=== PATIENT | female | born 1960 | race Asian ===

== ENCOUNTER → 2017-11-04 13:11 | Outpatient (CLI) | payer OTHER, SELFPAY ==
[2017-11-04 14:35] LABS: Protein (Total) Urine Random 493 mg/dL (0-12); Protein Creatinine Ratio Urine 5.13 GRAM/24H
[2017-11-04 14:53] LABS: BUN Creatinine Ratio 16.1 (6-22); Blood Urea Nitrogen 53 mg/dL (7-17); Calcium 9.2 mg/dL (8.4-10.2); Carbon Dioxide 19 mmol/L (22-32); Chloride 110 mmol/L (98-107); Estimated Glomerular Filt Rate 14.5 mL/min (>60); Glucose 56 mg/dL (70-100); HEMOLYSIS < 15 (0-50); Phosphorous 6.6 mg/dL (2.5-4.5); Potassium 4.2 mmol/L (3.4-5.1); Sodium 143 mmol/L (137-145)
[2017-11-04 19:32] LABS: Hematocrit 35.9 % (36-46); Hemoglobin 12.6 g/dL (12.0-16.0); Mean Corpuscular HGB Conc 35.1 % (30-36); Mean Corpuscular Hemoglobin 29.6 PG (26-34); Mean Corpuscular Volume 84.5 fL (80-100); Platelet Count 140 X10^3/uL (150-400); Red Blood Cell Count 4.26 X10^6/uL (4.0-5.2); Red Cell Distribution Width 14.6 % (11.6-14.8); White Blood Cell Count 5.4 X10^3/uL (4.5-11.0)
[2017-11-06 14:17] LABS: Parathyroid Hormone Int 111 pg/mL (14-64)
== END ==
PROVIDERS: PCP Family Medicine; Visit Provider Internal Medicine Nephrology
DX: N05.9 Unspecified nephritic syndrome with unspecified morphologic changes (principal); D70.9 Neutropenia, unspecified; D63.1 Anemia in chronic kidney disease; E83.30 Disorder of phosphorus metabolism, unspecified; N25.81 Secondary hyperparathyroidism of renal origin; R80.9 Proteinuria, unspecified
CPT/HCPCS: 36415; 80048; 82570; 83970; 84100; 84156; 85027

== ENCOUNTER → 2018-01-08 10:45 | Outpatient (CLI) | payer OTHER, SELFPAY ==
[2018-01-08 11:48] LABS: Alanine Aminotransferase 28 IU/L (9-52); Albumin 4.4 g/dL (3.5-5.0); Albumin Globulin Ratio 1.4 (1.0-2.8); Alkaline Phosphatase 79 U/L (38-126); Aspartate Aminotransferase 36 IU/L (14-36); BUN Creatinine Ratio 15.4 (6-22); Bilirubin Total 1.1 mg/dL (0.2-1.3); Blood Urea Nitrogen 54 mg/dL (7-17); Calcium 10.5 mg/dL (8.4-10.2); Carbon Dioxide 16 mmol/L (22-32); Chloride 109 mmol/L (98-107); Estimated Glomerular Filt Rate 13.5 mL/min (>60); Globulin 3.2 g/dL (1.7-4.1); Glucose 152 mg/dL (70-100); HEMOLYSIS < 15 (0-50); Potassium 4.3 mmol/L (3.4-5.1); Sodium 140 mmol/L (137-145); Total Protein 7.6 g/dL (6.3-8.2)
[2018-01-08 12:03] LABS: Hemoglobin A1C% w Est Avg Glu 6.5 % (4.0-6.0)
[2018-01-08 12:20] LABS: Creatinine Urine Random 56.5 mg/dL; Microalbumi Creatinin Ratio Ur 336.2 ug/mg CR (<30); Microalbumin Urine Random > 19.0 mg/dL (0-1.6)
[2018-01-08 13:19] LABS: Free T4, Direct Thyroxine 0.89 ng/dL (0.78-2.19)
[2018-01-08 13:33] LABS: Thyroid Stimulating Hormone 1.21 uIU/mL (0.47-4.68)
== END ==
PROVIDERS: Family Provider Internal Medicine Nephrology; PCP Family Medicine; Visit Provider Family Medicine
DX: E11.9 Type 2 diabetes mellitus without complications (principal); I10 Essential (primary) hypertension; K86.9 Disease of pancreas, unspecified; N18.9 Chronic kidney disease, unspecified; R89.9 Unspecified abnormal finding in specimens from other organs, systems and tissues; Z51.81 Encounter for therapeutic drug level monitoring; N28.9 Disorder of kidney and ureter, unspecified
CPT/HCPCS: 36415; 80053; 82043; 82570; 83036; 84439; 84443

== ENCOUNTER → 2018-01-12 11:53 | Outpatient (CLI) | payer OTHER, SELFPAY ==
[2018-01-12 12:27] LABS: Hemoglobin A1C% w Est Avg Glu 6.5 % (4.0-6.0)
[2018-01-12 13:10] LABS: Alanine Aminotransferase 33 IU/L (9-52); Albumin 4.5 g/dL (3.5-5.0); Albumin Globulin Ratio 1.6 (1.0-2.8); Alkaline Phosphatase 77 U/L (38-126); Aspartate Aminotransferase 34 IU/L (14-36); BUN Creatinine Ratio 17.8 (6-22); Bilirubin Total 0.8 mg/dL (0.2-1.3); Blood Urea Nitrogen 66 mg/dL (7-17); Calcium 10.1 mg/dL (8.4-10.2); Carbon Dioxide 19 mmol/L (22-32); Chloride 108 mmol/L (98-107); Estimated Glomerular Filt Rate 12.7 mL/min (>60); Globulin 2.8 g/dL (1.7-4.1); Glucose 135 mg/dL (70-100); HEMOLYSIS < 15 (0-50); Potassium 4.9 mmol/L (3.4-5.1); Sodium 143 mmol/L (137-145); Total Protein 7.3 g/dL (6.3-8.2)
== END ==
PROVIDERS: Family Provider Internal Medicine Nephrology; PCP Family Medicine; Visit Provider Family Medicine
DX: E11.9 Type 2 diabetes mellitus without complications (principal); I10 Essential (primary) hypertension
CPT/HCPCS: 36415; 80053; 83036

== ENCOUNTER → 2018-02-26 10:49 | Outpatient (CLI) | payer OTHER, SELFPAY ==
--- NOTE | 2018-02-26 10:59 | DI.MG.S_ITS ---
BILATERAL DIGITAL SCREENING MAMMOGRAM 3D/2D WITH CAD: 02/26/2018 CLINICAL: Routine screening. Comparison is made to exams dated: 01/02/2015 mammogram, 05/05/2013 mammogram, and 06/16/2011 mammogram - [facility]. There are scattered fibroglandular elements in both breasts. Current study was also evaluated with a Computer Aided Detection (CAD) system. No significant masses, calcifications, or other findings are seen in either breast. There has been no significant interval change. IMPRESSION: NEGATIVE There is no mammographic evidence of malignancy. A 1 year screening mammogram is recommended. This exam was interpreted at Station ID: [id number]. NOTE: For mammograms, a report in lay terms will be sent to the patient. Approximately 15% of breast malignancies will not be visualized mammographically. In the management of a palpable breast mass, a negative mammogram must not discourage biopsy of a clinically suspicious lesion. Electronically Signed By: Ld dinero/kelly:02/26/2018 16:35:04 letter sent: Normal Exam ACR BI-RADS Category 1: Negative [id number]
[2018-02-26 11:36] LABS: Bacteria Urine None Seen; WBC Urine None Seen (0-5/HPF)
[2018-02-26 12:19] LABS: Add Manual Diff / Slide Review NO; Basophils Percent Auto 0.9 % (0-2); Eosinophils Percent Auto 3.8 % (2-4); Hematocrit 29.2 % (36-46); Hemoglobin 10.3 g/dL (12.0-16.0); Lymphocytes Percent Auto 27.4 % (25-40); Mean Corpuscular HGB Conc 35.1 % (30-36); Mean Corpuscular Hemoglobin 29.3 PG (26-34); Mean Corpuscular Volume 83.5 fL (80-100); Monocytes Percent Auto 7.6 % (3-14); Neutrophils Absolute Auto 3600 /uL (3000-5900); Neutrophils Percent Auto 60.3 % (50-75); Platelet Count 169 X10^3/uL (150-400); Red Cell Distribution Width 14.3 % (11.6-14.8)
[2018-02-26 12:20] LABS: Reticulocyte Count, Percent 1.7 % (1.06-2.63)
[2018-02-26 12:35] LABS: Alanine Aminotransferase 26 IU/L (9-52); Albumin 4.1 g/dL (3.5-5.0); Albumin Globulin Ratio 1.4 (1.0-2.8); Alkaline Phosphatase 89 U/L (38-126); Aspartate Aminotransferase 28 IU/L (14-36); BUN Creatinine Ratio 11.5 (6-22); Bilirubin Total 0.4 mg/dL (0.2-1.3); Blood Urea Nitrogen 38 mg/dL (7-17); Carbon Dioxide 17 mmol/L (22-32); Chloride 104 mmol/L (98-107); Estimated Glomerular Filt Rate 14.4 mL/min (>60); Glucose 164 mg/dL (70-100); HEMOLYSIS < 15 (0-50); Iron 50 ug/dL (37-170); Phosphorous 5.1 mg/dL (2.5-4.5); Potassium 3.9 mmol/L (3.4-5.1); Sodium 140 mmol/L (137-145); Total Protein 7.1 g/dL (6.3-8.2); Uric Acid 5.6 mg/dL (2.5-6.2)
[2018-02-26 12:46] LABS: Percent Iron Saturation 18 % (15-50); Total Iron Binding Capacity 275 ug/dL (265-497); Transferrin 232 mg/dL (206-381)
[2018-02-26 13:05] LABS: Ferritin 72.2 ng/mL (11.1-264)
[2018-02-26 13:58] LABS: Appearance Urine UA CLEAR; Bilirubin Urine UA NEGATIVE (NEGATIVE); Color Urine UA YELLOW; Glucose Urine UA 1+ g/dL (Normal); Ketones Urine UA NEGATIVE (NEGATIVE); Leukocyte Esterase Urine UA NEGATIVE (NEGATIVE); Nitrite Urine UA NEGATIVE (Negative); Occult Blood Urine UA 1+ (Negative); Protein Urine UA 2+ (Negative); Urobilinogen Urine UA 0.2 E.U./dL (0.2); pH Urine UA 5.5 (4.5-8.0)
[2018-02-26 14:01] LABS: Culture Indicated Urine Cult Not Indicated; RBC Urine 5-10/HPF (0-5/HPF)
[2018-02-26 14:41] LABS: Creatinine Urine Random 71.3 mg/dL
[2018-02-26 14:53] LABS: Vitamin D 25 Hydroxy (D3) 35.5 ng/mL (30.0-100.0)
[2018-02-26 16:21] LABS: Microalbumi Creatinin Ratio Ur 5525.9 ug/mg CR (<30)
[2018-02-27 17:52] LABS: Parathyroid Hormone Int 320 pg/mL (14-64)
[2018-03-02 23:57] LABS: Albumin 44 %; Protein/ Creatinine Ratio 3859 mg/g creat (21-161); Total Urine Protein 291 mg/dL (5-24); Urine Creatinine, Random 75 mg/dL (20-275)
== END ==
PROVIDERS: PCP Family Medicine; Referring Provider Internal Medicine; Visit Provider Family Medicine
DX: Z12.31 Encounter for screening mammogram for malignant neoplasm of breast (principal); N18.5 Chronic kidney disease, stage 5
CPT/HCPCS: 36415; 77063; 77067; 80053; 81001; 82043; 82306; 82570; 82728; 83540; 83550; 83970; 84100; 84156; 84166; 84550; 85025; 85045

== ENCOUNTER → 2018-04-23 14:37 | Outpatient (CLI) | payer OTHER, SELFPAY ==
--- NOTE | 2018-04-23 | DI.US.S_ITS ---
PROCEDURE: US RENAL COMPLETE INDICATIONS: CHRONIC KIDNEY DISEASE TECHNIQUE: Real-time scanning was performed of the kidneys and bladder, with image documentation. COMPARISON: [facility], , RENAL COMPLETE, 10/05/2014, 15:48. FINDINGS: Kidneys: Kidneys are normal in size. Right kidney measures 9.3 cm long; left kidney measures 9.9 cm long. Right renal cortical thickness is 1.4 cm; left renal cortical thickness is 1.0 cm. Renal cortical echotexture is increased bilaterally. No hydronephrosis or nephrolithiasis. No suspicious solid mass lesions. Bladder: Urinary bladder decompressed and suboptimally visualized. Miscellaneous: No free pelvic fluid. IMPRESSION: Increase in renal cortical echogenicity bilaterally suggesting medical renal disease. Dictated by: Eber Obrien [facility] Interpreted: Luigi Bunch MD on 04/23/2018 at 15:12 Approved by: Luigi Bunch M.D. on 04/23/2018 at 16:38
== END ==
PROVIDERS: PCP Family Medicine; Visit Provider Internal Medicine
DX: N18.9 Chronic kidney disease, unspecified (principal)
CPT/HCPCS: 76770

== ENCOUNTER → 2018-06-28 11:48 | Outpatient (CLI) | payer OTHER, SELFPAY ==
[2018-06-28 13:52] LABS: Alanine Aminotransferase 24 IU/L (9-52); Albumin 4.4 g/dL (3.5-5.0); Albumin Globulin Ratio 1.3 (1.0-2.8); Alkaline Phosphatase 56 U/L (38-126); Aspartate Aminotransferase 29 IU/L (14-36); BUN Creatinine Ratio 11.1 (6-22); Bilirubin Total 0.8 mg/dL (0.2-1.3); Blood Urea Nitrogen 59 mg/dL (7-17); Calcium 9.6 mg/dL (8.4-10.2); Carbon Dioxide 15 mmol/L (22-32); Chloride 105 mmol/L (98-107); Cholesterol 169 mg/dL (140-199); Estimated Glomerular Filt Rate 8.3 mL/min (>60); Globulin 3.3 g/dL (1.7-4.1); Glucose 251 mg/dL (70-100); HDL Cholesterol 101 mg/dL (40-60); HEMOLYSIS < 15 (0-50); LDL Cholesterol Calculated 55 mg/dL (<100); Potassium 3.7 mmol/L (3.4-5.1); Sodium 135 mmol/L (137-145); Total Protein 7.7 g/dL (6.3-8.2); Triglycerides 64 mg/dL (35-150)
== END ==
PROVIDERS: Family Provider Family Medicine; PCP Family Medicine; Visit Provider Internal Medicine
DX: I12.0 Hypertensive chronic kidney disease with stage 5 chronic kidney disease or end stage renal disease (principal); E11.9 Type 2 diabetes mellitus without complications
CPT/HCPCS: 36415; 80053; 80061; 83036

== ENCOUNTER → 2019-01-10 10:16 | Outpatient (CLI) | payer OTHER, SELFPAY ==
[2019-01-10 12:04] LABS: Add Manual Diff / Slide Review NO; Basophils Absolute Auto 0 /uL (0-100); Eosinophils Absolute Auto 300 /uL (0-450); Eosinophils Percent Auto 5.5 % (2-4); Hematocrit 26.4 % (36-46); Hemoglobin 9.4 g/dL (12.0-16.0); Lymphocytes Absolute Auto 1400 /uL (1100-4500); Lymphocytes Percent Auto 30.5 % (25-40); Mean Corpuscular HGB Conc 35.5 % (30-36); Mean Corpuscular Hemoglobin 31.6 PG (26-34); Mean Corpuscular Volume 88.9 fL (80-100); Monocytes Absolute Auto 300 /uL (0-900); Monocytes Percent Auto 7.3 % (3-14); Neutrophils Absolute Auto 2600 /uL (1500-7000); Neutrophils Percent Auto 55.7 % (50-75); Platelet Count 94 X10^3/uL (150-400); Red Blood Cell Count 2.96 X10^6/uL (4.0-5.2); Red Cell Distribution Width 15.2 % (11.6-14.8)
[2019-01-10 12:09] LABS: Hemoglobin A1C% w Est Avg Glu 6.2 % (4.0-6.0)
[2019-01-10 12:19] LABS: Alanine Aminotransferase 23 IU/L (9-52); Albumin 3.7 g/dL (3.5-5.0); Albumin Globulin Ratio 1.5 (1.0-2.8); Alkaline Phosphatase 59 U/L (38-126); Aspartate Aminotransferase 24 IU/L (14-36); BUN Creatinine Ratio 10.6 (6-22); Bilirubin Total 0.6 mg/dL (0.2-1.3); Blood Urea Nitrogen 89 mg/dL (7-17); Calcium 9.9 mg/dL (8.4-10.2); Carbon Dioxide 15 mmol/L (22-32); Chloride 107 mmol/L (98-107); Estimated Glomerular Filt Rate 4.9 mL/min (>60); Globulin 2.5 g/dL (1.7-4.1); Glucose 110 mg/dL (70-100); HEMOLYSIS < 15 (0-50); Magnesium 2.3 mg/dL (1.6-2.3); Phosphorous 8.4 mg/dL (2.5-4.5); Potassium 5.2 mmol/L (3.4-5.1); Sodium 138 mmol/L (137-145); Total Protein 6.2 g/dL (6.3-8.2)
[2019-01-10 12:23] LABS: B Type Natriuretic Peptide 602 (<100)
== END ==
PROVIDERS: PCP Family Medicine; Visit Provider Family Medicine
DX: D64.9 Anemia, unspecified (principal); E11.9 Type 2 diabetes mellitus without complications; I10 Essential (primary) hypertension; K74.60 Unspecified cirrhosis of liver; K92.2 Gastrointestinal hemorrhage, unspecified; N18.5 Chronic kidney disease, stage 5
CPT/HCPCS: 36415; 80053; 83036; 83735; 83880; 84100; 85025

== ENCOUNTER → 2019-01-26 11:50 | Outpatient (CLI) | payer OTHER, SELFPAY ==
[2019-01-26 12:18] LABS: Add Manual Diff / Slide Review NO; Basophils Absolute Auto 0 /uL (0-100); Basophils Percent Auto 0.7 % (0-2); Eosinophils Absolute Auto 100 /uL (0-450); Eosinophils Percent Auto 2.6 % (2-4); Hematocrit 25.6 % (36-46); Hemoglobin 9.1 g/dL (12.0-16.0); Lymphocytes Absolute Auto 900 /uL (1100-4500); Lymphocytes Percent Auto 18.2 % (25-40); Mean Corpuscular HGB Conc 35.4 % (30-36); Mean Corpuscular Hemoglobin 31.6 PG (26-34); Monocytes Absolute Auto 400 /uL (0-900); Monocytes Percent Auto 7.9 % (3-14); Neutrophils Absolute Auto 3400 /uL (1500-7000); Neutrophils Percent Auto 70.6 % (50-75); Platelet Count 123 X10^3/uL (150-400); Red Blood Cell Count 2.87 X10^6/uL (4.0-5.2); Red Cell Distribution Width 14.3 % (11.6-14.8); White Blood Cell Count 4.8 X10^3/uL (4.5-11.0)
[2019-01-26 12:26] LABS: BUN Creatinine Ratio 10.6 (6-22); Blood Urea Nitrogen 84 mg/dL (7-17); Carbon Dioxide 17 mmol/L (22-32); Chloride 108 mmol/L (98-107); Estimated Glomerular Filt Rate 5.2 mL/min (>60); Glucose 133 mg/dL (70-100); HEMOLYSIS < 15 (0-50); Phosphorous 7.9 mg/dL (2.5-4.5); Potassium 4.5 mmol/L (3.4-5.1); Sodium 142 mmol/L (137-145)
[2019-01-26 12:31] VITALS: BP 157/80; PULSE 82; RESP 16; TEMP 36.8; O2SAT 97
[2019-01-26] MEDS: DARBEPOETIN 40 MCG/0.4 ML SYRINGE SUBCUT (12:45)
--- NOTE | 2019-01-26 13:33 | PC.NURSE ---
Aranesp given without difficulty after noting lab HGB 9.1. Teaching sheet given and reviewed with patient. Received call from lab notifying us that critical value of creat 7.9. Noted previous value of 8.4. Office of Dr Mcfadden in nephrology called and Dr Mcfadden is out of office. Spoke with nurse Shari and gave her the critical value. She will notify the other server developer in the office that's covering for Dr Mcfadden.
--- NOTE | 2019-01-26 16:10 | PC.NURSE ---
faxed critical lab result to Dr. Beatty's office. Nephrology already notified by RN, Tara Crowe.
== END ==
PROVIDERS: PCP Family Medicine; Visit Provider Internal Medicine
DX: N18.5 Chronic kidney disease, stage 5 (principal); D64.9 Anemia, unspecified
CPT/HCPCS: 80048; 84100; 85025; 96372; J0881

== ENCOUNTER → 2019-02-09 10:18 | Outpatient (CLI) | payer OTHER, SELFPAY ==
[2019-02-09 11:50] LABS: Add Manual Diff / Slide Review NO; Basophils Absolute Auto 0 /uL (0-100); Basophils Percent Auto 0.8 % (0-2); Eosinophils Absolute Auto 200 /uL (0-450); Hematocrit 26.1 % (36-46); Hemoglobin 9.3 g/dL (12.0-16.0); Lymphocytes Absolute Auto 900 /uL (1100-4500); Lymphocytes Percent Auto 17.7 % (25-40); Mean Corpuscular HGB Conc 35.4 % (30-36); Mean Corpuscular Hemoglobin 31.1 PG (26-34); Mean Corpuscular Volume 87.6 fL (80-100); Monocytes Absolute Auto 400 /uL (0-900); Monocytes Percent Auto 7.2 % (3-14); Neutrophils Absolute Auto 3600 /uL (1500-7000); Neutrophils Percent Auto 71.3 % (50-75); Platelet Count 108 X10^3/uL (150-400); Red Blood Cell Count 2.98 X10^6/uL (4.0-5.2); Red Cell Distribution Width 14.5 % (11.6-14.8)
[2019-02-09 12:14] LABS: BUN Creatinine Ratio 8.7 (6-22); Blood Urea Nitrogen 65 mg/dL (7-17); Calcium 9.7 mg/dL (8.4-10.2); Carbon Dioxide 19 mmol/L (22-32); Chloride 108 mmol/L (98-107); Estimated Glomerular Filt Rate 5.6 mL/min (>60); Glucose 125 mg/dL (70-100); HEMOLYSIS < 15 (0-50); Phosphorous 6.9 mg/dL (2.5-4.5); Potassium 4.3 mmol/L (3.4-5.1); Sodium 139 mmol/L (137-145)
== END ==
PROVIDERS: PCP Family Medicine; Visit Provider Internal Medicine
DX: N28.9 Disorder of kidney and ureter, unspecified (principal)
CPT/HCPCS: 36415; 80048; 84100; 85025

== ENCOUNTER → 2019-02-09 | Outpatient (CLI) | payer OTHER, SELFPAY ==
[2019-02-09 11:25] VITALS: BP 146/72; PULSE 67; RESP 18; TEMP 36.7; O2SAT 100
[2019-02-09] MEDS: DARBEPOETIN 40 MCG/0.4 ML SYRINGE SUBCUT (12:07)
== END ==
LOC: ONC 10:51
PROVIDERS: PCP Family Medicine; Visit Provider Internal Medicine
DX: N18.5 Chronic kidney disease, stage 5 (principal); D63.1 Anemia in chronic kidney disease
CPT/HCPCS: 36415; 80048; 84100; 85025; 96372; J0881

== ENCOUNTER → 2019-02-23 10:38 | Outpatient (CLI) | payer OTHER, SELFPAY ==
[2019-02-23 12:11] LABS: Add Manual Diff / Slide Review NO; Basophils Absolute Auto 0 /uL (0-100); Basophils Percent Auto 0.9 % (0-2); Eosinophils Absolute Auto 200 /uL (0-450); Eosinophils Percent Auto 4.2 % (2-4); Hematocrit 27.6 % (36-46); Hemoglobin 9.9 g/dL (12.0-16.0); Lymphocytes Absolute Auto 1200 /uL (1100-4500); Lymphocytes Percent Auto 29.5 % (25-40); Mean Corpuscular Hemoglobin 31.7 PG (26-34); Mean Corpuscular Volume 88.1 fL (80-100); Monocytes Absolute Auto 300 /uL (0-900); Monocytes Percent Auto 7.2 % (3-14); Neutrophils Absolute Auto 2400 /uL (1500-7000); Neutrophils Percent Auto 58.2 % (50-75); Platelet Count 108 X10^3/uL (150-400); Red Blood Cell Count 3.13 X10^6/uL (4.0-5.2); Red Cell Distribution Width 15.8 % (11.6-14.8); White Blood Cell Count 4.2 X10^3/uL (4.5-11.0)
[2019-02-23 12:21] LABS: HEMOLYSIS < 15 (0-50); Iron 110 ug/dL (37-170)
[2019-02-23 12:24] LABS: Alanine Aminotransferase 21 IU/L (9-52); Albumin Globulin Ratio 1.6 (1.0-2.8); Alkaline Phosphatase 65 U/L (38-126); Aspartate Aminotransferase 19 IU/L (14-36); BUN Creatinine Ratio 10.6 (6-22); Bilirubin Total 0.7 mg/dL (0.2-1.3); Blood Urea Nitrogen 82 mg/dL (7-17); Calcium 9.6 mg/dL (8.4-10.2); Carbon Dioxide 17 mmol/L (22-32); Chloride 107 mmol/L (98-107); Estimated Glomerular Filt Rate 5.4 mL/min (>60); Globulin 2.5 g/dL (1.7-4.1); Glucose 99 mg/dL (70-100); HEMOLYSIS < 15 (0-50); Phosphorous 8.6 mg/dL (2.5-4.5); Sodium 140 mmol/L (137-145); Total Protein 6.5 g/dL (6.3-8.2)
[2019-02-23 12:32] LABS: Percent Iron Saturation 45 % (15-50); Total Iron Binding Capacity 244 ug/dL (265-497); Transferrin 196 mg/dL (206-381)
[2019-02-23 12:36] LABS: Vitamin D 25 Hydroxy (D3) 37.8 ng/mL (30.0-100.0)
[2019-02-25 16:32] LABS: Parathyroid Hormone Int 211 pg/mL (14-64)
== END ==
PROVIDERS: PCP Family Medicine; Visit Provider Internal Medicine
DX: N18.5 Chronic kidney disease, stage 5 (principal)
CPT/HCPCS: 36415; 80053; 82306; 82728; 83540; 83550; 83970; 84100; 85025

== ENCOUNTER → 2019-02-23 11:30 | Outpatient (CLI) | payer OTHER, SELFPAY ==
[2019-02-23 11:48] VITALS: BP 169/74; PULSE 57; RESP 20; TEMP 36.5; O2SAT 100
[2019-02-23] MEDS: DARBEPOETIN 40 MCG/0.4 ML SYRINGE SUBCUT (12:41)
--- NOTE | 2019-02-23 13:13 | PC.NURSE ---
Dr. Mcfadden notified of critical creatinine of 7.7, this scenario writer also informed Dr. Mcfadden of pt's K+ and H/H/. Lab results faxed to [phone] Mcfadden's request during this call.
== END ==
PROVIDERS: PCP Family Medicine; Visit Provider Internal Medicine
DX: N18.5 Chronic kidney disease, stage 5 (principal); D63.1 Anemia in chronic kidney disease
CPT/HCPCS: 36415; 80053; 82306; 82728; 83540; 83550; 83970; 84100; 85025; 96401; J0881

== ENCOUNTER → 2019-03-09 09:45 | Oncology outpatient (ONC) | payer OTHER, SELFPAY ==
[2018-10-25] MEDS: IRON SUCROSE 200 MG in SODIUM CHLORIDE 0.9% 100 ML 110 ML IV (14:45)
[2018-10-25] MEDS: diphenhydrAMINE 25 MG TABLET PO (14:46)
[2018-10-25 14:55] VITALS: BP 205/81; PULSE 60; RESP 16; TEMP 36.8; O2SAT 97
[2018-10-25 15:23] VITALS: BP 205/91; PULSE 63
--- NOTE | 2018-10-25 15:23 | PC.NURSE ---
BP 205/91 with cuff change to regular size.
--- NOTE | 2018-10-26 09:19 | PC.NURSE ---
Patient had elevated blood pressure at beginning and end of iron treatment (systolic 205). She stated that she has not been taking her prescribed amlodipine because she cannot keep it down. the dryness and size of tablet she states make her gag. This nurse informed nurse of her provider Kasia Beatty, conveying also patient's info that she has been able to swallow the 5 mg coated amlodipine in the past. This nurse stated she will talk with provider and give the patient a call.
[2018-10-27] MEDS: IRON SUCROSE 200 MG in SODIUM CHLORIDE 0.9% 100 ML 110 ML IV (14:10)
[2018-10-27] MEDS: diphenhydrAMINE 25 MG TABLET PO (14:10)
[2018-10-27 14:12] VITALS: BP 151/75; PULSE 76; RESP 16; TEMP 36.9; O2SAT 100
[2018-11-01] MEDS: IRON SUCROSE 200 MG in SODIUM CHLORIDE 0.9% 100 ML 110 ML IV (14:32)
[2018-11-01 14:41] VITALS: BP 135/72; PULSE 67; RESP 16; TEMP 36.7; O2SAT 98
[2018-11-03] MEDS: IRON SUCROSE 200 MG in SODIUM CHLORIDE 0.9% 100 ML 110 ML IV (14:49)
[2018-11-03 14:56] VITALS: BP 146/69; PULSE 65; RESP 18; TEMP 36.4; O2SAT 100
[2018-11-08 14:26] VITALS: BP 165/84; PULSE 77; RESP 18; TEMP 36.7; O2SAT 100
[2018-11-08] MEDS: IRON SUCROSE 200 MG in SODIUM CHLORIDE 0.9% 100 ML 110 ML IV (14:41)
[2018-11-08] MEDS: diphenhydrAMINE 25 MG TABLET PO (14:42)
[2019-03-09 11:18] LABS: Add Manual Diff / Slide Review NO; Basophils Absolute Auto 0 /uL (0-100); Eosinophils Absolute Auto 200 /uL (0-450); Eosinophils Percent Auto 3.5 % (2-4); Hematocrit 26.9 % (36-46); Hemoglobin 9.5 g/dL (12.0-16.0); Lymphocytes Absolute Auto 900 /uL (1100-4500); Lymphocytes Percent Auto 20.6 % (25-40); Mean Corpuscular HGB Conc 35.3 % (30-36); Mean Corpuscular Hemoglobin 31.5 PG (26-34); Mean Corpuscular Volume 89.3 fL (80-100); Monocytes Absolute Auto 300 /uL (0-900); Monocytes Percent Auto 7.2 % (3-14); Neutrophils Absolute Auto 3000 /uL (1500-7000); Neutrophils Percent Auto 67.7 % (50-75); Platelet Count 97 X10^3/uL (150-400); Red Blood Cell Count 3.02 X10^6/uL (4.0-5.2); Red Cell Distribution Width 15.2 % (11.6-14.8); White Blood Cell Count 4.5 X10^3/uL (4.5-11.0)
[2019-03-09 11:41] LABS: Alanine Aminotransferase 14 IU/L (<35); Albumin 3.9 g/dL (3.5-5.0); Albumin Globulin Ratio 1.6 (1.0-2.8); Alkaline Phosphatase 66 U/L (38-126); Aspartate Aminotransferase 21 IU/L (14-36); BUN Creatinine Ratio 11.7 (6-22); Blood Urea Nitrogen 89 mg/dL (7-17); Calcium 9.7 mg/dL (8.4-10.2); Carbon Dioxide 19 mmol/L (22-32); Chloride 108 mmol/L (98-107); Estimated Glomerular Filt Rate 5.5 mL/min (>60); Globulin 2.5 g/dL (1.7-4.1); Glucose 116 mg/dL (70-100); HEMOLYSIS < 15 (0-50); Potassium 4.6 mmol/L (3.4-5.1); Sodium 142 mmol/L (137-145); Total Protein 6.4 g/dL (6.3-8.2)
[2019-03-09 11:45] LABS: Phosphorous 9.4 mg/dL (2.5-4.5)
[2019-03-09 12:15] LABS: Vitamin D 25 Hydroxy (D3) 29.8 ng/mL (30.0-100.0)
[2019-03-09 16:23] LABS: Iron 69 ug/dL (37-170)
[2019-03-09 16:38] LABS: Transferrin 190 mg/dL (206-381)
[2019-03-11 14:05] LABS: HEMOLYSIS 21 (0-50); Percent Iron Saturation 30 % (15-50); Total Iron Binding Capacity 232 ug/dL (265-497)
[2019-03-11 15:45] LABS: Parathyroid Hormone Int 135 pg/mL (14-64)
== END ==
PROVIDERS: Family Provider Family Medicine; PCP Family Medicine; Visit Provider Family Medicine
DX: N18.5 Chronic kidney disease, stage 5 (principal); D63.1 Anemia in chronic kidney disease
CPT/HCPCS: 36415; 80053; 82306; 82728; 83540; 83550; 83970; 84100; 85025; 96365; 96366; J1756

== ENCOUNTER → 2019-03-09 10:25 | Outpatient (CLI) | payer OTHER, SELFPAY ==
--- NOTE | 2019-03-09 12:25 | PC.NURSE ---
Pt's BP noted at 182/77, this appeals writer called Dr. Mcfadden's office and spoke with Dang Sanchez RN; received orders to hold Aranesp per Dr. Mcfadden. Per Dang RAYGOZA pt is to continue taking binders. Also informed Dang of pt's critical lab results Creatinine 7.6 and Phos 9.4, Dang informed this appeals writer that Dr. Mcfadden is aware. Lab results faxed per order. Pt informed to continue binders and that injection will be held for today, verbalized understanding. Also instructed to keep f/u appt with Dr. Mcfadden. No s/s of acute distress noted in pt.
== END ==
PROVIDERS: PCP Family Medicine; Visit Provider Internal Medicine
DX: N18.5 Chronic kidney disease, stage 5 (principal); D63.1 Anemia in chronic kidney disease

== ENCOUNTER → 2019-10-11 13:14 | Outpatient (CLI) | payer MEDICARE, OTHER, SELFPAY ==
--- NOTE | 2019-10-11 13:15 | DI.US.S_ITS ---
PROCEDURE: US ABDOMEN LIMITED INDICATIONS: ETOH CIRRHOSIS, WITHOUT ASCITES TECHNIQUE: Real-time focused scanning was performed of the abdomen, with image documentation. COMPARISON: [facility], , ABDOMEN LIMITED, 11/05/2015, 8:01. FINDINGS: Liver echotexture is coarse and echogenic as was seen on prior examination. No discrete liver masses seen. 8mm simple hepatic cysts. Hepatopedal flow present within the main portal vein. Hepatic veins are patent. Epigastric varices present. Small right pleural effusion and small amount of perihepatic fluid. 4 mm gallbladder polyp and gallbladder wall is thickened measuring 3.2 mm. Negative sonographic Auguste sign. No biliary dilatation. Spleen is enlarged. IMPRESSION: 1. Cirrhotic hepatic morphology redemonstrated and no discrete liver masses seen. 2. Hepatofugal flow within the main portal vein. 3. Splenomegaly and epigastric varices consistent with portal hypertension. 4. Small amount of ascites and right pleural effusion. 5. 4 mm gallbladder polyp and wall thickening which may be related to hepatic disease; although clinical correlation is recommended to exclude developing cholecystitis which is considered unlikely. Dictated by: Eber Obrien [facility] Interpreted: Luigi Bunch MD on 10/11/2019 at 16:21 Approved by: Luigi Bunch M.D. on 10/11/2019 at 17:21
== END ==
PROVIDERS: PCP Internal Medicine; Referring Provider Internal Medicine Gastroenterology; Visit Provider Internal Medicine Gastroenterology
DX: K70.31 Alcoholic cirrhosis of liver with ascites (principal); I86.4 Gastric varices; R16.1 Splenomegaly, not elsewhere classified; J90 Pleural effusion, not elsewhere classified; K80.20 Calculus of gallbladder without cholecystitis without obstruction
CPT/HCPCS: 76705

== ENCOUNTER → 2019-12-13 16:21 | Outpatient (CLI) | payer MEDICARE, OTHER, SELFPAY ==
[2019-12-13 17:55] LABS: COVID19 -Nasal RAPID Negative (Negative)
== END ==
PROVIDERS: PCP Internal Medicine; Visit Provider Physician Assistant
DX: Z11.59 Encounter for screening for other viral diseases (principal)
CPT/HCPCS: 87635

== ENCOUNTER 2019-12-14 09:22 | Day surgery (SDC) | payer MEDICARE, OTHER, SELFPAY ==
[2019-12-14] VITALS (8 sets, daily range): BP systolic 139–171; BP diastolic 56–79; PULSE 50–58; RESP 14–16; TEMP 36.4–37.1; O2SAT 93–98; BMI 27.3
[2019-12-14] MEDS: LACTATED RINGERS 1,000 ML 200 ML IV (10:12)
--- NOTE | 2019-12-14 10:53 | PM.HP.1 ---
History of Present Illness History of Present Illness Chief complaint: [facility] [place] Patient History Medical History Alcoholism (Resolved) Allergic rhinitis (Chronic) Anemia (Resolved Unknown) Cataracts, bilateral (Chronic ~01/2017) Cirrhosis (Chronic Unknown) CKD (chronic kidney disease) (Chronic) Colon polyps (Resolved Unknown) Depression (Chronic) Diabetes (Chronic 2003) Eczema (Chronic) ESRD (end stage renal disease) (Chronic ~03/2019) Fibromyalgia (Chronic 1994) Foot pain (Resolved) GERD (gastroesophageal reflux disease) (Chronic) Gout (Chronic) Hypertension (Chronic) Liver disease (Chronic Unknown) Migraines (Chronic) Osteoarthritis (Chronic Unknown) Pancreatitis (Resolved Unknown) Recurrent sinusitis (Chronic) Rosacea (Chronic) Seizures (Resolved) Shoulder pain (Resolved) Sleep apnea (Chronic Unknown) Stroke (Resolved) Urinary incontinence (Chronic) Surgical History History of third molar tooth extraction (1976) Hx of appendectomy (Resolved) Hx of cholecystectomy (Resolved) Hx of colonoscopy with polypectomy (Resolved) Status post colonoscopy Family & Social History Family History Father Age: 93 Hypertension Arthritis Mother Hypertension Diabetes mellitus Arthritis Sister Age: 64 Osteoporosis Sister Age: 62 Bipolar 1 disorder Social History: household members spouse Tobacco & Substance use: Smoking Status Never smoker alcohol intake former Substance Use Type does not use Meds Home Medications and Allergies Home Medications Medication Instructions Recorded Confirmed Type Disabled Parking Permit #1 ea 04/06/18 12/14/19 Rx multivitamin 1 cap PO DAILY 04/06/18 12/14/19 History cholecalciferol (vitamin D3) 1,250 50,000 unit PO QWEEK 12/29/18 12/14/19 History mcg (50,000 unit) capsule calcium acetate(phosphat bind) 667 667 mg PO TID 01/07/19 12/14/19 History mg capsule ondansetron 4 mg disintegrating 4 mg PO Q8H 01/07/19 12/14/19 History tablet sevelamer HCl 800 mg tablet 800 mg PO TID 01/07/19 12/14/19 History sodium bicarbonate 650 mg tablet 650 mg PO TID PRN tab 01/07/19 12/14/19 History Glucometer #1 ea 01/19/19 12/14/19 Rx Micro Fine Insulin Blaine #200 each 03/11/19 12/14/19 Rx Freestyle Lite Test Strips #100 each 08/15/19 12/14/19 Rx Glucose: Test Strips #400 each NS 08/15/19 12/14/19 Rx amlodipine 5 mg tablet 5 mg PO BID #180 tab 08/15/19 12/14/19 Rx insulin aspart U-100 100 unit/mL 10 unit SUBCUT DAILY PRN #90 ml 08/15/19 12/14/19 Rx (3 mL) subcutaneous pen insulin detemir U-100 100 unit/mL 10 unit SUBCUT QDAY #90 ml 08/15/19 12/14/19 Rx (3 mL) subcutaneous pen labetalol 200 mg tablet 200 mg PO Q12H #180 tab 08/17/19 12/14/19 Rx Allergies Allergy/AdvReac Type Severity Reaction Status Date / Time peanut [PEANUT] Allergy Mild Face Verified 12/14/19 09:12 swelling latex [LATEX] Allergy Unknown Verified 12/14/19 09:12 metformin [METFORMIN] Allergy Unknown Jaundice Verified 12/14/19 09:12 monosodium glutamate Allergy Unknown Verified 12/14/19 09:12 [MONOSODIUM GLUTAMATE] spironolactone Allergy Unknown Verified 12/14/19 09:12 [SPIRONOLACTONE] aspirin [ASPIRIN] AdvReac Unknown Vomiting Verified 12/14/19 09:12 esomeprazole [ESOMEPRAZOLE] AdvReac Unknown Nausea Verified 12/14/19 09:12 fluoxetine [FLUOXETINE] AdvReac Unknown Became Verified 12/14/19 09:12 violent gabapentin [GABAPENTIN] AdvReac Unknown N/V Verified 12/14/19 09:12 prednisone [PREDNISONE] AdvReac Unknown Hives/itchi Verified 12/14/19 09:12 ng Sulfa (Sulfonamide AdvReac Unknown Rash/pain Verified 12/14/19 09:12 Antibiotics) [SULFA (SULFONAMIDE ANTIBIOTICS)] Review of Systems Review of Systems ROS: Yes All systems reviewed with the patient and are negative except as otherwise documented Exam Vital Signs (past 8 hours): - 12/14/19 09:43 Temperature 97.8 F Pulse Rate 58 L Respiratory Rate 16 Blood Pressure 171/76 H Pulse Oximetry 98 Oxygen Delivery Method Room Air Narrative Exam Narrative: Awake alert oriented x3, no acute distress, lungs clear, heart regular rate rhythm, Assessment & Plan Assessment & Plan narrative: History of cirrhosis need to rule out varices for EGD COVID-19 COVID-19 status: Negative
--- NOTE | 2019-12-14 11:08 | PM.OP.ENDO ---
Operative Date/Time/Diagnoses Date of procedure: 12/14/19 Procedure & Clinicians Study performed: EGD Moderate conscious sedation was administered by the endoscopy nurse and supervised by the endoscopist. The following parameters were monitored: Oxygen saturation, heart rate, blood pressure, and response to care. 4mg midazolam and 100mcg fentanyl given. Same procedure as scheduled: Yes Indications: History of cirrhosis, rule out varices Procedure Notes Procedure in detail: Prior to the procedure, history and physical was performed, and patient medications and allergies were reviewed. Preprocedure nursing history and assessment was reviewed. Patient identification and proposed procedure were verified by the physician and nurse in the procedure room. The physical status of the patient was reassessed after the procedure. After informed consent was obtained including risks, benefits, and alternatives, the scope was passed under direct vision. Throughout the procedure, the patient's blood pressure, pulse, and oxygen saturations were monitored continuously. The upper endoscope was introduced through the mouth and advanced to the 2nd portion of the duodenum. Retroflexion was performed in the stomach. The patient tolerated the procedure well. The entire examined esophagus was normal appearing. No varices were identified. The Z-line was regular and was located at 36 cm. A 3 cm hiatal hernia was noted. The stomach was otherwise normal appearing. The entire examined duodenum was normal appearing. Impression: Normal appearing esophagus 3 cm hiatal hernia Normal appearing duodenum Sedation minutes: 10 Specimen(s): none sent Complications: other (EBL 0. Small upper lip laceration noted after bite block removal.) Post-procedure Plan for aftercare: Resume home medications Resume previous diet Follow-up in GI clinic as previously scheduled Patient has a contact number available for emergencies. The signs and symptoms of potential delayed complications were discussed with the patient. Return to normal activities tomorrow. Written discharge instructions were provided to the patient. Discharge home with escort
[2019-12-14] MEDS: fentaNYL 250 MCG/5 ML INJ IV (11:10)
[2019-12-14] MEDS: MIDAZOLAM 5 MG/5 ML VIAL IV (11:10)
--- NOTE | 2019-12-14 11:58 | SUR.PHASEI ---
Pt drinking hot tea now but still dozes intermittently. Talking excitedly off and on and in good spirits.
== END 2019-12-14 12:23 | disposition home or self-care (01) ==
PROVIDERS: PCP Internal Medicine; Referring Provider Internal Medicine; Visit Provider Internal Medicine
PROC: 0DJ08ZZ Inspection of Upper Intestinal Tract, Via Natural or Artificial Opening Endoscopic (ICD-10-PCS; CPT 43235; principal; 2019-12-14 10:30)
DX: K70.30 Alcoholic cirrhosis of liver without ascites (principal); I12.0 Hypertensive chronic kidney disease with stage 5 chronic kidney disease or end stage renal disease; N18.6 End stage renal disease; Z99.2 Dependence on renal dialysis; M79.7 Fibromyalgia; F10.21 Alcohol dependence, in remission; E11.9 Type 2 diabetes mellitus without complications; Z79.4 Long term (current) use of insulin; K44.9 Diaphragmatic hernia without obstruction or gangrene
CPT/HCPCS: 43235; J2250; J3010

== ENCOUNTER → 2019-12-17 16:33 | Outpatient (CLI) | payer MEDICARE, OTHER, SELFPAY ==
[2019-12-18 23:30] LABS: COVID19 Sendout Not Detected (Not Detect)
== END ==
PROVIDERS: PCP Internal Medicine; Visit Provider Nurse Practitioner
DX: Z11.59 Encounter for screening for other viral diseases (principal)
CPT/HCPCS: 87635

== ENCOUNTER → 2019-12-20 09:57 | Outpatient (CLI) | payer MEDICARE, OTHER, SELFPAY ==
--- NOTE | 2019-12-20 | DI.NM.S_ITS ---
PROCEDURE: NM CARIN PERF SPECT R&S PHARM Rest and pharmacological stress myocardial perfusion SPECT with gated imaging and ejection fraction RADIOPHARMACEUTICAL: 12.3 mCi Tc-99m tetrafosmin IV at rest and 26.1 mCi Tc-99m tetrafosmin IV at peak effect of pharmacological stress. [id number] was performed. INDICATIONS: Awaiting organ transplant status COMPARISON: None. CARDIAC STRESS: A pharmacologic stress test was performed under the supervision of an attending staff, using an infusion of Lexiscan . Hemodynamic data: There is normal blood pressure and heart rate response to pharmacologic stress. Symptoms: The patient had chest pressure, 3/10, after lexiscan injection with no ECG changes and quick, spontaneous resolution. Aminophylline: Not used. EKG: Baseline ECG shows sinus bradycardia with first degree AV block. No diagnostic changes of ischemia; no ectopy. FINDINGS: Raw data: There is good myocardial uptake of radiotracer. No significant motion artifacts. Xqat-[id number] ratio is 0.42 (normal is less than 0.38 for tetrafosmin tracer). Left ventricle function: Gated images demonstrate normal left ventricular wall thickening. No segmental wall motion abnormalities. No transient ischemic dilation; TID is 0.77 (normal less than 1.3). Left ventricle resting end diastolic volume is 144 mL. Left ventricle stress ejection fraction is >75% ; normal range is above 45%. Myocardial perfusion: There is a small, mild, perfusion defect in the anteroapical wall which is better on stress and is consistent with attenuation artifact. Otherwise normal distribution of activity in the left ventricular myocardium. No fixed or reversible perfusion defects. IMPRESSION: -Normal perfusion with no evidence of ischemia or scar. -Mildly elevated lung to heart ratio. Please correlate clinically. -Overall low risk from coronary disease standpoint. Dictated by: Mikhail Black M.D. on 12/20/2019 at 17:11 Approved by: Mikhail Black M.D. on 12/20/2019 at 17:22
== END ==
PROVIDERS: PCP Internal Medicine; Referring Provider Internal Medicine; Visit Provider Internal Medicine Nephrology
DX: Z76.82 Awaiting organ transplant status (principal)
CPT/HCPCS: 78452; 93017; A9502; J2785

== ENCOUNTER → 2020-03-29 10:47 | Outpatient (CLI) | payer MEDICARE, OTHER, SELFPAY ==
[2020-03-29 11:53] LABS: Add Manual Diff / Slide Review NO; Basophils Absolute Auto 0 /uL (0-100); Eosinophils Absolute Auto 200 /uL (0-450); Hematocrit 29.6 % (36-46); Hemoglobin 10.2 g/dL (12.0-16.0); Lymphocytes Absolute Auto 800 /uL (1100-4500); Lymphocytes Percent Auto 22.8 % (25-40); Mean Corpuscular HGB Conc 34.5 % (30-36); Mean Corpuscular Hemoglobin 32.9 PG (26-34); Mean Corpuscular Volume 95.2 fL (80-100); Monocytes Absolute Auto 400 /uL (0-900); Monocytes Percent Auto 10.1 % (3-14); Neutrophils Absolute Auto 2100 /uL (1500-7000); Neutrophils Percent Auto 61.1 % (50-75); Platelet Count 77 X10^3/uL (150-400); Red Blood Cell Count 3.11 X10^6/uL (4.0-5.2); Red Cell Distribution Width 16.2 % (11.6-14.8); White Blood Cell Count 3.5 X10^3/uL (4.5-11.0)
[2020-03-29 12:12] LABS: INR 1.3 (0.9-1.3); Prothrombin Time 15.2 SECONDS (10.1-12.7)
[2020-03-29 12:16] LABS: Blood Urea Nitrogen 28 mg/dL (7-17); Carbon Dioxide 33 mmol/L (22-32); Chloride 95 mmol/L (98-107); Potassium 4.9 mmol/L (3.4-5.1); Sodium 136 mmol/L (137-145)
[2020-03-29 12:17] LABS: Alanine Aminotransferase 15 IU/L (<35); Albumin 3.9 g/dL (3.5-5.0); Albumin Globulin Ratio 1.3 (1.0-2.8); Alkaline Phosphatase 70 U/L (38-126); Aspartate Aminotransferase 27 IU/L (14-36); Bilirubin Total 1.3 mg/dL (0.2-1.3); Calcium 9.6 mg/dL (8.4-10.2); Estimated Glomerular Filt Rate 7.8 mL/min (>60); Glucose 299 mg/dL (70-100); HEMOLYSIS < 15 (0-50); Total Protein 6.9 g/dL (6.3-8.2)
== END ==
PROVIDERS: PCP Internal Medicine; Referring Provider Internal Medicine; Visit Provider Internal Medicine
DX: Z01.818 Encounter for other preprocedural examination (principal); K70.30 Alcoholic cirrhosis of liver without ascites
CPT/HCPCS: 36415; 80053; 85025; 85610

== ENCOUNTER 2020-05-22 05:09 | Emergency (ER) | payer MEDICARE, OTHER, SELFPAY ==
[2020-05-22] VITALS (35 sets, daily range): BP systolic 122–259; BP diastolic 55–175; PULSE 82–125; RESP 3–64; TEMP 37; O2SAT 86–100
--- NOTE | 2020-05-22 | DI.RAD.S_ITS ---
PROCEDURE: XR CHEST 1V INDICATIONS: LINE PLACEMENT TECHNIQUE: One view of the chest was acquired. COMPARISON: [facility], CR, XR CHEST 1 VIEW, 04/06/2019, 18:01. [facility], CR, XR CHEST 1 VIEW, 04/11/2019, 10:13. FINDINGS: Surgical changes and devices: An endotracheal tube is seen with the tip 1.5 cm above talon. There is a nasal gastric tube with the tip projecting to the area of stomach. There is a double-lumen dialysis catheter with the tip projecting to the area of atrial caval junction. Lungs and pleura: Mild right upper lobe and left basilar infiltrate. Increased pulmonary vascularity. No pleural effusions or pneumothorax. Mediastinum: Mediastinal contours appear normal. Heart size is moderately increased. Bones and chest wall: No suspicious bony lesions. Overlying soft tissues appear unremarkable. IMPRESSION: 1. Endotracheal tube, nasogastric tube and right IJ central line as described. 2. Mild right upper lobe and left basilar infiltrates may be secondary to asymmetric pulmonary edema or pneumonia. No significant discrepancy with the maintenance mechanic 2nd shift radiology preliminary report. Dictated by: Winnie Monsivais M.D. on 05/22/2020 at 8:41 Approved by: Winnie Monsivais M.D. on 05/22/2020 at 8:46
--- NOTE | 2020-05-22 04:56 | ED.GENADULT ---
HPI - General Adult General Stated complaint: Poss Seizure Time Seen by Provider: 05/22/20 05:10 History of Present Illness HPI narrative: 60-year-old woman with complex medical history including diabetes, renal failure on dialysis, hypertension, 2 prior strokes both preceded by seizures, presents today with altered mental status and probable seizure. Her notes that he heard her thrashing in the kitchen went to check on her found her with a grand mal seizure he helped her sit up to protect her airway and called 911. When medics arrived the seizure had stopped she was still postictal, altered and had no focal neurologic findings. Over the transport time she became much more aware and alert. Shortly after arrival in the emergency room she was beginning to converse normally and answer questions. She had a large volume emesis and shortly after that had a 2nd seizure. There was a single IV established. She was given 2 mg of Ativan. The seizure continued for an additional 5 minutes with an additional 2 mg of Ativan given while additional IV access was attempted. She began having significantly more respiratory difficulty with inadequate ventilation and decision was made to moved intubation. Propofol was chosen for its anti seizure activity. Encountered significant tongue edema and posterior pharyngeal edema, significantly anterior airway and blood coming from the esophagus. With difficulty she was intubated with a 7.5 cuffed tube and oxygenated well after that. She is being maintained with deep sedation with the use of propofol to help control her seizure. Rocuronium was used as she is a dialysis patient and potassium levels were not available. After the 1st dose of Ativan the grand mal movement did diminish. The dramatic right lateral eye deviation began to return to normal as the propofol was infused. It is difficult to ascertain whether she remains in status and sedated at this time or simply sedated. Further questioning from her indicates that she likely had not been taking her insulin regularly, has been having increasing difficulty with sleep apnea, he describes difficulty in getting through to her myriad of physicians at but does note that she did not seem to have any in back shows complaints of late. Specifically no fevers, no cough. She had not been complaining of chest pain or abdominal pain. She has been going to her regular dialysis. On arrival in the ER, her blood pressure was too high for the cuff to measure on her right arm, left arm with vascular fistula. Moving the cuff down to her right calf blood pressure of 245/112 was measured. After intubation and external jugular peripheral line left side of her neck was cannulated by physician and blood was obtained to sent to lab. She is taken to the CT scanner and labs have been obtained. Related Data Home Medications Medication Instructions Recorded Confirmed multivitamin 1 cap PO DAILY 04/06/18 12/14/19 cholecalciferol (vitamin D3) 1,250 50,000 unit PO QWEEK 12/29/18 12/14/19 mcg (50,000 unit) capsule calcium acetate(phosphat bind) 667 667 mg PO TID 01/07/19 12/14/19 mg capsule ondansetron 4 mg disintegrating 4 mg PO Q8H 01/07/19 12/14/19 tablet sevelamer HCl 800 mg tablet 800 mg PO TID 01/07/19 12/14/19 sodium bicarbonate 650 mg tablet 650 mg PO TID PRN tab 01/07/19 12/14/19 Previous Rx's Medication Instructions Recorded Disabled Parking Permit #1 ea 04/06/18 Glucometer #1 ea 01/19/19 Micro Fine Insulin [place] #200 each 03/11/19 Freestyle Lite Test Strips #100 each 08/15/19 Glucose: Test Strips #400 each NS 08/15/19 amlodipine 5 mg tablet 5 mg PO BID #180 tab 08/15/19 insulin aspart U-100 100 unit/mL 10 unit SUBCUT DAILY PRN #90 ml 08/15/19 (3 mL) subcutaneous pen insulin detemir U-100 100 unit/mL 10 unit SUBCUT QDAY #90 ml 08/15/19 (3 mL) subcutaneous pen labetalol 200 mg tablet 200 mg PO Q12H #180 tab 08/17/19 Allergies Allergy/AdvReac Type Severity Reaction Status Date / Time peanut [PEANUT] Allergy Mild Face Verified 12/14/19 09:12 swelling latex [LATEX] Allergy Unknown Verified 12/14/19 09:12 metformin [METFORMIN] Allergy Unknown Jaundice Verified 12/14/19 09:12 monosodium glutamate Allergy Unknown Verified 12/14/19 09:12 [MONOSODIUM GLUTAMATE] spironolactone Allergy Unknown Verified 12/14/19 09:12 [SPIRONOLACTONE] aspirin [ASPIRIN] AdvReac Unknown Vomiting Verified 12/14/19 09:12 esomeprazole [ESOMEPRAZOLE] AdvReac Unknown Nausea Verified 12/14/19 09:12 fluoxetine [FLUOXETINE] AdvReac Unknown Became Verified 12/14/19 09:12 violent gabapentin [GABAPENTIN] AdvReac Unknown N/V Verified 12/14/19 09:12 prednisone [PREDNISONE] AdvReac Unknown Hives/itchi Verified 12/14/19 09:12 ng Sulfa (Sulfonamide AdvReac Unknown Rash/pain Verified 12/14/19 09:12 Antibiotics) [SULFA (SULFONAMIDE ANTIBIOTICS)] Review of Systems Review of Systems ROS Unobtainable: Unobtainable due to medical condition Patient History Medical History (Updated 05/22/20 @ 06:30 by Rosey Lares MD) Alcoholism Allergic rhinitis Anemia (Unknown) Cataracts, bilateral (~01/2017) Cirrhosis (Unknown) CKD (chronic kidney disease) Colon polyps (Unknown) Depression Diabetes (2003) Eczema ESRD (end stage renal disease) (~03/2019) Fibromyalgia (1994) Foot pain GERD (gastroesophageal reflux disease) Gout Hypertension Liver disease (Unknown) Migraines Osteoarthritis (Unknown) Pancreatitis (Unknown) Recurrent sinusitis Rosacea Seizures Shoulder pain Sleep apnea (Unknown) Stroke Urinary incontinence Surgical History History of third molar tooth extraction (1976) Hx of appendectomy Hx of cholecystectomy Hx of colonoscopy with polypectomy Status post colonoscopy Family History Father Age: 93 Hypertension Arthritis Mother Hypertension Diabetes mellitus Arthritis Sister Age: 65 Osteoporosis Sister Age: 63 Bipolar 1 disorder Social History household members: spouse Smoking Status: Never smoker alcohol intake: former Exam Narrative Exam Narrative: General: Pale and chronically ill appearing, confused with mental status improving. HEENT: protuberant eyes bilateral, pupils are mid position and equal. There is a bite walt to the right edge of her tongue Neck: Supple with no decreased range of motion. Increased vascularity secondary to fistula but no significant jugular venous distension Chest: Dialysis catheter in right chest wall. No obvious trauma to the chest no crepitance. Respiratory: Mild rhonchi through all lung clancy Cardiac: Tachycardic, regular, over writing pulmonary noises Abdomen: Obese, soft, nondistended, multiple bruises from insulin injections Spine and pelvis: No obvious trauma Skin: Thin, pale scattered bruises in various stages of healing consistent with her chronic illnesses Neurologic: Postictal but improving Extremities: No lower extremity edema, good peripheral perfusion Psych: Postictal Initial Vital Signs Initial Vital Signs: Vital Signs Respiratory Rate 24 05/22/20 05:25 Course Orders Ordered: ED Orders 05/22/20 XR chest 1V Stat 05/22/20 05:48 ABG [Arterial Blood Gas] Stat 05/22/20 05:50 Basic Metabolic Panel Stat Partial Thromboplastin Time Stat Prothrombin Time INR Stat Type and Screen Stat 05/22/20 06:01 CT Stroke Stat Complete Blood Count AUTO DIFF Stat EKG-12 Lead Stat 05/22/20 06:12 COVID19 Stat 05/22/20 06:20 Urinalysis and Microscopic Stat 05/22/20 06:25 Urine Drug Screen, Rapid Stat Sodium Chloride (Normal Saline 0.9%) 1,000 mls @ 150 mls/hr IV CONT AFUA Nicardipine HCl 25 mg/ Sodium (Chloride) 250 mls @ 50 mls/hr IV TITRATE AUFA; Protocol Last Titration: 05/22/20 07:02 Dose: 5 mg/hr, 50 mls/hr Documented by: Propofol (Propofol) 1,000 mg in 100 mls @ 20 mls/hr IV TITRATE AFUA; Protocol Last Admin: 05/22/20 07:11 Dose: 20 mls/hr, 20 mls/hr Documented by: Discontinued Medications Levetiracetam 1,500 mg/ Sodium (Chloride) 115 mls @ 460 mls/hr IV NOW ONE Stop: 05/22/20 05:58 Last Infusion: 05/22/20 06:40 Dose: Infused Documented by: Insulin Human Regular (Insulin Regular 100 Unit/Ml 3 Ml Vial) 10 unit IV NOW ONE Stop: 05/22/20 06:27 Last Admin: 05/22/20 06:36 Dose: 10 unit Documented by: Propofol (Propofol 200 Mg/20 Ml Vial) 60 mg IV NOW ONE Stop: 05/22/20 05:21 Last Admin: 05/22/20 05:26 Dose: 60 mg Documented by: Propofol (Propofol 200 Mg/20 Ml Vial) 40 mg IV NOW ONE Stop: 05/22/20 05:36 Last Admin: 05/22/20 05:41 Dose: 40 mg Documented by: Rocuronium [place] (Rocuronium 100 Mg/10 Ml Vial) 50 mg IV NOW ONE Stop: 05/22/20 05:26 Last Admin: 05/22/20 05:30 Dose: 50 mg Documented by: Vital Signs Vital signs: Vital Signs - 8 hr 05/22/20 05:25 05/22/20 06:27 Respiratory Rate 24 Pulse Oximetry 100 Medical Decision Making Medical Records Medical records reviewed: Yes I reviewed the patient's medical records. Lab Data Lab results reviewed: Yes I reviewed the patient's lab results. Result diagrams: 05/22/20 05:50 05/22/20 05:50 Labs: Lab Results 05/22/20 05/22/20 05/22/20 Range/Units 05:48 05:50 05:50 WBC 4.3 L (4.5-11.0) X10^3/uL RBC 3.75 L (4.0-5.2) X10^6/uL Hgb 12.1 (12.0-16.0) g/dL Hct 37.0 (36-46) % MCV 98.6 (80-100) fL MCH 32.4 (26-34) PG MCHC 32.9 (30-36) % RDW 16.3 H (11.6-14.8) % Plt Count 78 L (150-400) X10^3/uL Neut % (Auto) 68.0 (50-75) % Lymph % (Auto) 20.0 L (25-40) % Cherry % (Auto) 8.1 (3-14) % Eos % (Auto) 2.7 (2-4) % Baso % (Auto) 1.2 (0-2) % Neut # (Auto) 2900 (7788-0934) /uL Lymph # (Auto) 900 L (2986-7353) /uL Cherry # (Auto) 300 (0-900) /uL Eos # (Auto) 100 (0-450) /uL Baso # (Auto) 0 (0-100) /uL PT (10.1-12.7) SECONDS INR (0.9-1.3) APTT (26.4-36.2) SECONDS ABG pH 7.28 L* (7.35-7.45) ABG pCO2 54.7 H (35-45) mmHg ABG pO2 82 (80-100) mmHg ABG HCO3 26 (22-26) mmol/L ABG Total CO2 27 (21-31) mmol/L ABG O2 Saturation 94 L (95-100) % ABG Base Excess -1.0 (-2-2) mmol/L FiO2 40 Sodium (137-145) mmol/L Potassium (3.4-5.1) mmol/L Chloride (98-107) mmol/L Carbon Dioxide (22-32) mmol/L BUN (7-17) mg/dL Creatinine (0.52-1.04) mg/dL Estimated GFR (>60) mL/min BUN/Creatinine Ratio (6-22) Glucose (70-100) mg/dL Calcium (8.4-10.2) mg/dL U Opiates 300ng/mL cut (Negative) Ur Oxycodone Screen (Negative) Urine Methadone Screen (Negative) Ur Barbiturates Screen (Negative) U Tricyclic Antidepress (Negative) Ur Phencyclidine Scrn (Negative) Ur Amphetamines Screen (Negative) U Methamphetamines Scrn (Negative) Ur MDMA Scrn (Ecstasy) (Negative) U Benzodiazepines Scrn (Negative) Urine Cocaine Screen (Negative) U Marijuana (THC) Screen (Negative) SARS-CoV-2 (PCR) (Negative) Blood Type A Positive Antibody Screen Negative 05/22/20 05/22/20 05/22/20 Range/Units 05:50 05:50 06:12 WBC (4.5-11.0) X10^3/uL RBC (4.0-5.2) X10^6/uL Hgb (12.0-16.0) g/dL Hct (36-46) % MCV (80-100) fL MCH (26-34) PG MCHC (30-36) % RDW (11.6-14.8) % Plt Count (150-400) X10^3/uL Neut % (Auto) (50-75) % Lymph % (Auto) (25-40) % Cherry % (Auto) (3-14) % Eos % (Auto) (2-4) % Baso % (Auto) (0-2) % Neut # (Auto) (4283-5530) /uL Lymph # (Auto) (8137-9673) /uL Cherry # (Auto) (0-900) /uL Eos # (Auto) (0-450) /uL Baso # (Auto) (0-100) /uL PT 13.8 H (10.1-12.7) SECONDS INR 1.2 (0.9-1.3) APTT 33 (26.4-36.2) SECONDS ABG pH (7.35-7.45) ABG pCO2 (35-45) mmHg ABG pO2 (80-100) mmHg ABG HCO3 (22-26) mmol/L ABG Total CO2 (21-31) mmol/L ABG O2 Saturation (95-100) % ABG Base Excess (-2-2) mmol/L FiO2 Sodium 134 L (137-145) mmol/L Potassium 4.6 (3.4-5.1) mmol/L Chloride 96 L (98-107) mmol/L Carbon Dioxide 27 (22-32) mmol/L BUN 23 H (7-17) mg/dL Creatinine 3.79 H (0.52-1.04) mg/dL Estimated GFR 12.2 L (>60) mL/min BUN/Creatinine Ratio 6.1 (6-22) Glucose 488 H* (70-100) mg/dL Calcium 8.8 (8.4-10.2) mg/dL U Opiates 300ng/mL cut (Negative) Ur Oxycodone Screen (Negative) Urine Methadone Screen (Negative) Ur Barbiturates Screen (Negative) U Tricyclic Antidepress (Negative) Ur Phencyclidine Scrn (Negative) Ur Amphetamines Screen (Negative) U Methamphetamines Scrn (Negative) Ur MDMA Scrn (Ecstasy) (Negative) U Benzodiazepines Scrn (Negative) Urine Cocaine Screen (Negative) U Marijuana (THC) Screen (Negative) SARS-CoV-2 (PCR) Negative (Negative) Blood Type Antibody Screen 05/22/20 Range/Units 06:25 WBC (4.5-11.0) X10^3/uL RBC (4.0-5.2) X10^6/uL Hgb (12.0-16.0) g/dL Hct (36-46) % MCV (80-100) fL MCH (26-34) PG MCHC (30-36) % RDW (11.6-14.8) % Plt Count (150-400) X10^3/uL Neut % (Auto) (50-75) % Lymph % (Auto) (25-40) % Cherry % (Auto) (3-14) % Eos % (Auto) (2-4) % Baso % (Auto) (0-2) % Neut # (Auto) (9258-0751) /uL Lymph # (Auto) (4465-8973) /uL Cherry # (Auto) (0-900) /uL Eos # (Auto) (0-450) /uL Baso # (Auto) (0-100) /uL PT (10.1-12.7) SECONDS INR (0.9-1.3) APTT (26.4-36.2) SECONDS ABG pH (7.35-7.45) ABG pCO2 (35-45) mmHg ABG pO2 (80-100) mmHg ABG HCO3 (22-26) mmol/L ABG Total CO2 (21-31) mmol/L ABG O2 Saturation (95-100) % ABG Base Excess (-2-2) mmol/L FiO2 Sodium (137-145) mmol/L Potassium (3.4-5.1) mmol/L Chloride (98-107) mmol/L Carbon Dioxide (22-32) mmol/L BUN (7-17) mg/dL Creatinine (0.52-1.04) mg/dL Estimated GFR (>60) mL/min BUN/Creatinine Ratio (6-22) Glucose (70-100) mg/dL Calcium (8.4-10.2) mg/dL U Opiates 300ng/mL cut Negative (Negative) Ur Oxycodone Screen Negative (Negative) Urine Methadone Screen Negative (Negative) Ur Barbiturates Screen Negative (Negative) U Tricyclic Antidepress Negative (Negative) Ur Phencyclidine Scrn Negative (Negative) Ur Amphetamines Screen Negative (Negative) U Methamphetamines Scrn Negative (Negative) Ur MDMA Scrn (Ecstasy) Negative (Negative) U Benzodiazepines Scrn Negative (Negative) Urine Cocaine Screen Negative (Negative) U Marijuana (THC) Screen Positive H (Negative) SARS-CoV-2 (PCR) (Negative) Blood Type Antibody Screen Point of Care Testing Glucose POC 401 Point of care testing: Point of Care Testing Glucose POC 401 Imaging Data Chest x-ray: Radiologist's Impression: ETT is 1.3 cm above the talon Cardiomegaly in vague perihilar infiltrates with peribronchial cuffing in the left hilar area. CT scan - head: Radiologist's Impression: Verbally communicated at 6:22 a.m. Negative for acute head bleed. Subacute to chronic basila infarct on the left ECG Data Attestation: I personally reviewed and interpreted this ECG as follows: Interpretation: Sinus rhythm at a rate of 88 Leftward axis, first-degree AV block QTC is 486, prolonged, Right ventricular Conduction delay no acute ischemic changes MDM Narrative Medical decision making narrative: 630am call to [facility] to consider bed availability and transfer Begin nicardipine with a goal of systolic blood pressure 180 10 units of insulin for blood sugar of 488, chronic hyperglycemia without DKA She is a dialysis patient with mild volume overload fluid is not given, there is no initial concern for sepsis or infectious etiology still 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 Will continue deep sedation with propofol at 50mics Care is reviewed with Neurointensivist at [facility]. Dr Novak. ICU beds available, patient is admitted. He agrees with current medicine management. Airlift has been activated and we expect their arrival around 730. Patient remains in critical condition at time of transfer Findings, concerns, plans, and care given to date are reviewed in detail with her and questions are answered. Due to uncertain diagnosis, onset of seizure and severely elevated blood pressure patient is not a tPA candidate. Critical Care Time Critical Care Time Critical Care Time: Yes Total Critical Care Time: 62 Attestation: Critical care time is separate from other billable procedures. This critical care time includes consultation with family and other consulting doctors, review of records, and interpretation of data from labs, EKGs and imaging as well as managements of acute seizure, stroke, cardiovascular collapse, respiratory failure, endocrine crisis. 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 Respiratory failure Qualifiers: Chronicity: acute Respiratory failure complication: hypercapnia Qualified Code(s): J96.02 - Acute respiratory failure with hypercapnia Prescriptions: No Action multivitamin capsule 1 cap PO DAILY RF: 0 (DME) Disabled Parking Permit Qty: 1 RF: 0 (DME) Glucometer Qty: 1 RF: 0 (DME) Micro Fine Insulin [place] Qty: 200 RF: 3 amlodipine 5 mg tablet 5 mg PO BID Qty: 180 RF: 3 (DME) Glucose: Test Strips 0 .Route .MEDSUPPLY Qty: 400 RF: 3 Novolog Flexpen U-100 Insulin 100 unit/mL (3 mL) insulin pen 10 unit SUBCUT DAILY PRN (Reason: diabetes) Qty: 90 RF: 3 Levemir FlexTouch U-100 Insuln 100 unit/mL (3 mL) insulin pen 10 unit SUBCUT QDAY Qty: 90 RF: 3 (DME) Freestyle Lite Test Strips Qty: 100 RF: 3 labetalol 200 mg tablet 200 mg PO Q12H Qty: 180 RF: 3 cholecalciferol (vitamin D3) 50,000 unit capsule 50,000 unit PO QWEEK RF: 0 sevelamer HCl 800 mg tablet 800 mg PO TID RF: 0 ondansetron 4 mg tablet,disintegrating 4 mg PO Q8H RF: 0 calcium acetate(phosphat bind) 667 mg capsule 667 mg PO TID RF: 0 sodium bicarbonate 650 mg tablet 650 mg PO TID PRN (Reason: Acid Reflux) RF: 0 Referrals: Darryl Jj MD [Primary Care Provider] - Restraint [id number] Restraint [id number] Evaluation Oqtu-de-Pwoq #1: Date: 05/22/20 Time: 06:53 Level of Consciousness: Sedated (INTUBATED) Restraint Needs: Continue Restraints
[2020-05-22] MEDS: LORazepam 2 MG/ML INJ ×2 (05:15→05:17)
[2020-05-22] MEDS: propofoL 200 MG/20 ML VIAL 60 MG IV (05:26)
[2020-05-22] MEDS: ROCURONIUM 100 MG/10 ML VIAL 50 MG IV (05:30)
[2020-05-22] MEDS: propofoL 200 MG/20 ML VIAL 40 MG IV (05:41)
[2020-05-22 06:00] LABS: Fractionated Inspired Oxygen 40; HCO3 ABG 26 mmol/L (22-26); Oxygen Saturation ABG 94 % (95-100); PCO2 ABG 54.7 mmHg (35-45); PO2 ABG 82 mmHg (80-100); TCO2 ABG 27 mmol/L (21-31); pH ABG 7.28 (7.35-7.45)
--- NOTE | 2020-05-22 06:01 | DI.CT.S_ITS ---
PROCEDURE: CT STROKE INDICATIONS: seizure, stroke TECHNIQUE: Noncontrast 4.5 mm thick angled axial sections acquired from the foramen magnum to the vertex, with coronal reformats. For radiation dose reduction, the following was used: automated exposure control, adjustment of mA and/or kV according to patient size. COMPARISON: [facility], MR, BRAIN W&WO CONTRAST, 05/16/2013, 14:30. [facility], CT, HEAD WITHOUT CONTRAST, 07/21/2013, 13:55. [facility], CT, HEAD WITHOUT CONTRAST, 10/20/2013, 12:50. [facility], CT, HEAD WITHOUT CONTRAST, 09/07/2014, 16:42. FINDINGS: Image quality: Excellent. CSF spaces: Basal cisterns are patent. No extra-axial fluid collections. The ventricles are symmetric in size and shape. Brain: No intracranial bleeds or masses. There is mild to moderate cerebral volume loss for age, with resultant ventricular and sulcal prominence. There are periventricular and deep white matter chronic small vessel ischemic changes. There is intracranial internal carotid artery atherosclerosis. Skull and face: Calvarium and visualized facial bones appear intact, without suspicious lesions. Sinuses: Visualized sinuses and mastoids are clear. IMPRESSION: 1. No acute intracranial abnormalities. 2. Cerebral volume loss and chronic microvascular ischemic changes. No significant discrepancy with the cnc machinist 2nd shift radiology preliminary report. This study fulfills neurological imaging criteria for inclusion or exclusion of acute stroke therapies based on available published neurological guidelines. Dictated by: Winnie Monsivais M.D. on 05/22/2020 at 7:16 Approved by: Winnie Monsivais M.D. on 05/22/2020 at 7:21
[2020-05-22 06:12] LABS: Add Manual Diff / Slide Review NO; Basophils Absolute Auto 0 /uL (0-100); Basophils Percent Auto 1.2 % (0-2); Eosinophils Absolute Auto 100 /uL (0-450); Eosinophils Percent Auto 2.7 % (2-4); Hemoglobin 12.1 g/dL (12.0-16.0); Lymphocytes Absolute Auto 900 /uL (1100-4500); Mean Corpuscular HGB Conc 32.9 % (30-36); Mean Corpuscular Hemoglobin 32.4 PG (26-34); Mean Corpuscular Volume 98.6 fL (80-100); Monocytes Absolute Auto 300 /uL (0-900); Monocytes Percent Auto 8.1 % (3-14); Neutrophils Absolute Auto 2900 /uL (1500-7000); Platelet Count 78 X10^3/uL (150-400); Red Blood Cell Count 3.75 X10^6/uL (4.0-5.2); Red Cell Distribution Width 16.3 % (11.6-14.8); White Blood Cell Count 4.3 X10^3/uL (4.5-11.0)
[2020-05-22] MEDS: levETIRAcetam 1,500 MG in SODIUM CHLORIDE 0.9% 100 ML 460 ML IV (06:12)
[2020-05-22 06:15] LABS: INR 1.2 (0.9-1.3); Prothrombin Time 13.8 SECONDS (10.1-12.7)
[2020-05-22 06:18] LABS: PTT Partial Thromboplastin Tim 33 SECONDS (26.4-36.2)
[2020-05-22 06:20] LABS: BUN Creatinine Ratio 6.1 (6-22); Blood Urea Nitrogen 23 mg/dL (7-17); Calcium 8.8 mg/dL (8.4-10.2); Carbon Dioxide 27 mmol/L (22-32); Chloride 96 mmol/L (98-107); Estimated Glomerular Filt Rate 12.2 mL/min (>60); HEMOLYSIS < 15 (0-50); Potassium 4.6 mmol/L (3.4-5.1); Sodium 134 mmol/L (137-145)
[2020-05-22 06:27] LABS: Glucose 488 mg/dL (70-100)
[2020-05-22] MEDS: INSULIN REGULAR 100 UNIT/ML 3 ML VIAL 10 UNIT IV (06:36)
[2020-05-22] MEDS: NICARDIPINE 25 MG in SODIUM CHLORIDE 0.9% 240 ML 50 ML IV (06:37)
[2020-05-22 06:41] LABS: COVID19 -Nasal RAPID Negative (Negative)
[2020-05-22 06:47] LABS: UR Morphine/Opiate cutoff 300 Negative (Negative); Ur Creatinine Normal (Normal); Ur Specific Gravity Normal (Normal); Urine Amphetamines Negative (Negative); Urine Barbiturates Negative (Negative); Urine Benzodiazepines Negative (Negative); Urine Cocaine Negative (Negative); Urine MDMA Negative (Negative); Urine Methadone Negative (Negative); Urine Methamphetamines Negative (Negative); Urine Oxycodone Negative (Negative); Urine Phencyclidine Negative (Negative); Urine Tetrahydrocannabinol Positive (Negative); Urine Tricyclic Antidepressant Negative (Negative); Urine pH Normal (Normal)
[2020-05-22] MEDS: propofoL 200 MG/20 ML VIAL IV (06:52)
[2020-05-22] MEDS: propofoL 1,000 MG/100 ML VIAL 20 MG IV (07:11)
--- NOTE | 2020-05-22 07:35 | PC.NURSE ---
Summary of care: Pt received from EMS alert and interactive, during tirage pt noted with R facial and R arm twitching which progressed to full-body tonic-clonic seizures. Oxygen given via blow-by; after ~ 2 minutes pt noted with resp arrest. Dr Lares was at bedside, total 4 mg ativan given IV per verbal order and breaths assisted with BVM, 100% FiO2 by respiratory. Pt was subsequently intubated by Dr Lares, 6.2cm ETT placed at 22cm at the tooth. Intubation facilitated by propopful by IVP and then infusion, as well as Rocuroniom. Dr Lares placed 18g left EJ IV. After airway was secured, pt transported to for CT head. Nursing cares completed including placement of garcia cath, OG tube placement to low wall suction, Cardene drip started, titrating to goal of SPB 180 per order and Propofol infusion, titrate to RASS -4. Soft wrist restraints were placed to protect lines/tubes. Loading dose of Keppra was given IV. Pt's called to bedside and he was updated to plan of care. Pt now resting, all lines and tubes patent, BP stable 169/65.
--- NOTE | 2020-05-22 08:22 | PC.NURSE ---
Extra bottle of 1000mg of Propofol given to [employer]. Witnessed by IDALMIS Sparks
== END 2020-05-22 08:25 | disposition short-term general hospital (02) ==
PROVIDERS: Emergency Provider Emergency Medicine; PCP Internal Medicine
DX: G40.901 Epilepsy, unspecified, not intractable, with status epilepticus (principal); N18.6 End stage renal disease; Z99.2 Dependence on renal dialysis; I63.12 Cerebral infarction due to embolism of basilar artery; I10 Essential (primary) hypertension; R41.82 Altered mental status, unspecified; E11.9 Type 2 diabetes mellitus without complications; H51.8 Other specified disorders of binocular movement; Z86.73 Personal history of transient ischemic attack (TIA), and cerebral infarction without residual deficits; Z20.822 Contact with and (suspected) exposure to COVID-19; D64.9 Anemia, unspecified
CPT/HCPCS: 31500; 36600; 70450; 71045; 80048; 80305; 82805; 82962; 85025; 85610; 85730; 86850; 86900; 86901; 87635; 93005; 94002; 94799; 96365; 96366; 96367; 96375; 99285; 99291; C9803; J1953; J2060; J2704

== ENCOUNTER → 2020-07-16 16:26 | Outpatient (CLI) | payer MEDICARE, OTHER, SELFPAY ==
[2020-07-16 16:16] VITALS: RESP 24; O2SAT 96
--- NOTE | 2020-07-16 16:28 | DI.RAD.S_ITS ---
PROCEDURE: XR CHEST 2V INDICATIONS: dyspnea TECHNIQUE: 2 views of the chest were acquired. COMPARISON: None. FINDINGS: Surgical changes and devices: Dual lumen catheter in the right IJ terminates near the cavoatrial junction. Lungs and pleura: Small right pleural effusion. Mixed interstitial and alveolar airspace opacities, presumably cardiogenic pulmonary edema. Mediastinum: Mediastinal contours are normal. Heart size is enlarged. Bones and chest wall: No suspicious bony abnormalities. Soft tissues appear unremarkable. IMPRESSION: Cardiomegaly with presumably cardiogenic moderate mixed interstitial and alveolar pulmonary edema , as well as a small right pleural effusion. Dictated by: Marcel Gray M.D. on 07/16/2020 at 16:53 Approved by: Marcel Gray M.D. on 07/16/2020 at 16:54
== END ==
PROVIDERS: PCP Internal Medicine; Referring Provider Internal Medicine; Visit Provider Internal Medicine
DX: R06.00 Dyspnea, unspecified (principal); N18.6 End stage renal disease; I51.7 Cardiomegaly; J90 Pleural effusion, not elsewhere classified
CPT/HCPCS: 71046

== ENCOUNTER → 2020-10-31 09:42 | Outpatient (CLI) | payer MEDICARE, OTHER, SELFPAY ==
[2020-07-16 16:16] VITALS: RESP 24; O2SAT 96
[2020-10-31 12:05] LABS: COVID19 -Nasal RAPID Negative (Negative)
== END ==
PROVIDERS: PCP Internal Medicine; Visit Provider Physician Assistant
DX: Z01.812 Encounter for preprocedural laboratory examination (principal); Z20.822 Contact with and (suspected) exposure to COVID-19
CPT/HCPCS: 87635; C9803

== ENCOUNTER → 2021-01-14 14:47 | Outpatient (CLI) | payer MEDICARE, OTHER, SELFPAY ==
[2020-07-16 16:16] VITALS: RESP 24; O2SAT 96
[2021-01-14 16:02] LABS: COVID19 -Nasal RAPID Negative (Negative)
== END ==
PROVIDERS: PCP Internal Medicine; Visit Provider Nurse Practitioner Family
DX: Z20.822 Contact with and (suspected) exposure to COVID-19 (principal)
CPT/HCPCS: 87635; C9803

== ENCOUNTER 2021-01-16 06:04 | Day surgery (SDC) | payer MEDICARE, OTHER, SELFPAY ==
[2020-07-16 16:16] VITALS: RESP 24; O2SAT 96
--- NOTE | 2021-01-13 12:23 | PM.PREOP ---
Pre-operative Note COVID-19 COVID-19 status: Negative Interval Note History & Physical reviewed/Exam performed by Physician: Yes Changes to H&P: No H&P completed within 30 days and has changed as indicated here:: On dialysis due for treatment today after surgery. Has acid reflux today and will be given IV Prilosec. Difficult IV access, Fasting glucose today is 214. Patient has reduced her insulin dose as it increased her appetite. Stat labs for platelet count which returned at 79 tjhousand and potassium which returned at 3.9 were ordered as they have been abnomal with platelets low. Due to this data a laryngeal mask airway is chosen for lower risk of bleeding. Anesthesia evaluated the patient preoperatively and will manage her glucose as well.
--- NOTE | 2021-01-13 12:25 | P.OP_ITS ---
Operative Date/Time/Diagnoses Date of procedure: 01/16/21 Time of procedure: 07:45 Procedure & Clinicians Procedure: Preoperative diagnoses: 1. Right complex surgery with use of capsular dye. 2. Mature or advanced nuclear sclerotic and cortical cataract with poor visibility of the anterior capsule increasing surgical risks of complications. 3. Diabetes with renal failure requiring dialysis. Uses continuous glucose monitor. Has an IV fistula. No retinopathy. 4. Rapidly advancing cataract due to prednisone use. 5. Seizure disorder 6. Low platelets 7. Sleep apnea Postoperative diagnoses: 1. Complex surgery with use of capsular dye, 2. Placement of a posterior chamber intraocular lens implant. Surgeon: Loly Goode MD Complications: none Specimen: None Implant: [id number]+22.0 Blood loss: None Anesthesia: General with use of laryngeal mask airway. Dictated by: Loly Goode MD Post operative diagnoses: 1. Complex Right cataract removed with use of capsular dye . 2. Placement of a posterior chamber intraocular lens. Procedure: Phacoemulsification with posterior chamber intraocular lens implant Surgeon: Loly Goode MD Blood loss: None Anesthesia: General with laryngeal mask airway Description of procedure: Patient has presented with decreased vision due to prednisone related advanced posterior subcapsular cataract cataract which is affecting activities of daily living. She is unable to see well at distance for any distance or reading activity. She is on chronic dialysis and is dialyzed several times a week. She is due for a session today following surgery. She has an IV fistula for this. She understands the extra risk of surgery during the COVID-19 epidemic and wishes to proceed. She has tested COVID-19 virus negative within 72 hours of the procedure. Due to the advanced nature of the cataract capsular dye will be used to increase visibility. [place] [address] is felt best to use laryngeal mask general anesthesia instead a retrobulbar block. patient wants surgery to improve vision. Has a short axial length the steep cornea which also increases risk and uses a distance target. Her seizures are controlled. Fasting glucose is elevated prior to surgery and will be controlled postoperatively. The patient was taken to the operating room and given IV sedation and a laryngeal mask airway placed. The eye is manually massaged for 30 sec, prepped using Betadine solution, and draped in the usual sterile fashion. Temporal approach was made, a 1 mm side-port incision was performed 90 degrees from the planned corneal wound. Phenylephrine 1.5% mixed with 1% xylocaine 0.2 cc was placed into the anterior chamber. An air bubble was placed and Visudyne dye was placed to improve visibility of the anterior capsule. The dye was irrigated out to reduce bubbles. Endocoat followed by Vic was then placed. A 2.6 mm clear incision with a 2.6 mm blade was placed. A 360 degree capsulorrhexis style capsulotomy was then performed with a cystitome needle on a Healon greatly aided by the capsular dye. A Utrata forceps was also used to complete the capsulorrhexis. Hydrodelineation and hydrodissection were performed. The phacoemulsification unit is introduced, and sculpting used to groove the central lens. It is then removed in chopping mode. Epi nucleus is removed with epinuclear mode and irrigation aspiration was used to remove the peripheral cortex. The posterior capsule is polished. She has posterior subcapsular plaque and this was removed. The intraocular lens is selected, inspected, power confirmed, and placed in the posterior chamber. The wound was stromally hydrated and tested for leaks, there was none and was left sutureless. Vigamox 0.1 cc was placed into the anterior chamber. Kenalog 0.2 cc was placed in the superior subconjunctival space. A drop of antibiotic and was placed and the eye was patched and shielded. The patient was stable and returned to the recovery room in excellent condition. Dictated by: Loly Goode MD Copy to: [facility] Same procedure as scheduled: Yes
[2021-01-16] VITALS (16 sets, daily range): BP systolic 138–179; BP diastolic 63–85; PULSE 55–68; RESP 12–22; TEMP 36.5–37.3; O2SAT 87–94; BMI 27.1
[2021-01-16] MEDS: PROPARACAINE 0.5% OPHTH SOL 2 DROPS EYE-OP (07:09)
[2021-01-16] MEDS: CATARACT EYE COMPOUND (10 DROPS/SYRINGE) 3 DROPS EYE-OP (07:15)
[2021-01-16 07:50] LABS: Platelet Count 79 X10^3/uL (150-400)
[2021-01-16 07:52] LABS: HEMOLYSIS < 15 (0-50); Potassium 3.9 mmol/L (3.4-5.1)
[2021-01-16] MEDS: LACTATED RINGERS 1,000 ML 42 ML IV (08:12)
[2021-01-16] MEDS: FAMOTIDINE 20 MG/2 ML VIAL IV (08:38)
[2021-01-16] MEDS: MOXIFLOXACIN INJ 4 MG/0.8 ML VIAL 0.5 MG EYE-OP (08:48)
[2021-01-16] MEDS: HYALURONATE SODIUM 30 MG-10 MG/ML SYRINGES 1 BOX INTRAOCULA (08:48)
[2021-01-16] MEDS: PHENYLEPHRINE/LIDOCAINE VIAL (OR) 0.2 ML EYE-OP (08:48)
[2021-01-16] MEDS: ERYTHROMYCIN OPHTH 1 GM OINT 1 APPLIC EYE-RIGHT (08:49)
[2021-01-16] MEDS: TRYPAN BLUE 0.5 ML SYRINGE INJ (08:50)
[2021-01-16] MEDS: BALANCED SALT IRRIG SOLN NO.2 500 ML, EPINEPHrine 1 MG IRR (08:50)
[2021-01-16] MEDS: TRIAMCINOLONE 50 MG/5 ML VIAL INJ (08:50)
[2021-01-16] MEDS: ONDANSETRON 4 MG/2 ML INJ IV (11:25)
--- NOTE | 2021-01-16 13:11 | P.PN_ITS ---
Subjective Subjective Date Patient Seen: 01/16/21 Time Patient Seen: 13:12 Interval history: 60 yo F with ESRD now s/p cataract surgery done today. General anesthesia was performed (using an LMA) due to a low platelet count (79K) and consequent inability to perform retrobulbar block. She was given IV midazolam 1.5mg, fentanyl 100mg, lidocaine 20mg and pepcid 20mg. A total of 175 ml of LR was given IV and her post op fluid intake has been 240ml. Anesthesia course was uneventful. She usually has dialysis at [facility] on . Because she mis sed her dialysis today, she was rescheduled for 6pm tomorrow. She is now over 3 hours post op and complains of mild SOB. She has been on O2 per NC to maintain O2 sat in low 90s. She was 92% preoperatively. She desaturates into the high 80s on room air, but responds to incentive spirometry. The [facility] has no bed space for an earlier appointment today, but the [facility] is able to see her at 5:30 today. This plan is agreeable to the patient. Arrangements have been made for her to arrive at the [facility] at 5 pm today. Address and contact information has been given to the patient. She has been instructed to use the incentive spirometer until her dialysis. Dr. Goode is aware of the plan. Exam Vital Signs (past 8 hours): - 01/16/21 07:33 01/16/21 09:31 01/16/21 09:36 Temperature 99.1 F 97.8 F Pulse Rate 68 60 60 Respiratory Rate 18 12 18 Blood Pressure 174/73 H 140/67 140/70 Pulse Oximetry 92 92 93 01/16/21 09:41 01/16/21 09:46 01/16/21 09:51 Temperature Pulse Rate 64 58 L 59 L Respiratory Rate 17 16 16 Blood Pressure 138/70 144/69 H 157/69 H Pulse Oximetry 94 94 93 01/16/21 09:56 01/16/21 10:01 01/16/21 10:06 Temperature Pulse Rate 57 L 56 L 57 L Respiratory Rate 16 18 19 Blood Pressure 157/75 H 164/74 H 170/78 H Pulse Oximetry 94 94 93 01/16/21 10:11 01/16/21 10:26 01/16/21 10:33 Temperature Pulse Rate 57 L 56 L 58 L Respiratory Rate 19 16 22 Blood Pressure 177/85 H 179/82 H 172/75 H Pulse Oximetry 92 93 92 01/16/21 10:48 01/16/21 11:28 Temperature 98.1 F 97.7 F Pulse Rate 58 L 55 L Respiratory Rate 18 14 Blood Pressure 150/72 H 139/63 Pulse Oximetry 94 94 Oxygen Delivery Method Nasal Cannula Oxygen Flow Rate 2 Objective Labs Result Diagrams: 01/16/21 07:44 01/16/21 07:35 Labs: Laboratory Results - last 24 hr 01/16/21 01/16/21 07:35 07:44 Plt Count 79 L Potassium 3.9 PFSH Medical History (Updated 01/15/21 @ 09:46 by Arleen Winslow MD) Alcoholism Allergic rhinitis Anemia (Unknown) Cataracts, bilateral (~01/2017) Cirrhosis (Unknown) CKD (chronic kidney disease) Colon polyps (Unknown) Depression Diabetes (2003) Eczema ESRD (end stage renal disease) (~03/2019) Fibromyalgia (1994) Foot pain GERD (gastroesophageal reflux disease) Gout Hypertension Liver disease (Unknown) Migraines Obstructive sleep apnea, adult Osteoarthritis (Unknown) Pancreatitis (Unknown) Recurrent sinusitis Rosacea Seizures Shoulder pain Stroke Thrombocytopenia Urinary incontinence Surgical History History of third molar tooth extraction (1976) Hx of appendectomy Hx of cholecystectomy Hx of colonoscopy with polypectomy Status post colonoscopy Family History Father Age: 94 Hypertension Arthritis Obesity Mother Hypertension Diabetes mellitus Arthritis Loud snoring Sleep apnea Insomnia Obesity Heart disease Sister Age: 65 Osteoporosis Sister Age: 63 Bipolar 1 disorder Social History household members: spouse Smoking Status: Never smoker alcohol intake: former Assessment & Plan Time Spent With Patient Critical Care time: I spent a total of [] minutes of critical care time on this patient's care today; this time is exclusive of procedural time.
--- NOTE | 2021-01-16 13:50 | SUR.PHASEII ---
Dr Swanson at bedside regarding low SPO2, makes appointment at [facility] in [place] for 1730 today. Patient's spouse contacted via phone by this RN and informed of appointment. Patient's Chris states he has already made an appointment at [facility] in [place] for [address] Swanson on the phone with Don, then to bedside with Patient; it is decided to cancel appointment in [place] and verify appointment in [place]. Both facilities called, Patient informed that she has an appointment at [facility] tomorrow 1832 hrs.
--- NOTE | 2021-01-16 14:07 | P.PN_ITS ---
Subjective Subjective Date Patient Seen: 01/16/21 Time Patient Seen: 14:08 Interval history: The final post op disposition of this 60yo F is that she will maintain her previously scheduled kidney dialysis appointment for tomorrow, 01/17/21, at 1830 in [place]. The 1730 dialysis appointment in [place] today was cancelled per the request of her . The patient is in agreement with this plan. She is stable to be discharged. Exam Vital Signs (past 8 hours): - 01/16/21 07:33 01/16/21 09:31 01/16/21 09:36 Temperature 99.1 F 97.8 F Pulse Rate 68 60 60 Respiratory Rate 18 12 18 Blood Pressure 174/73 H 140/67 140/70 Pulse Oximetry 92 92 93 01/16/21 09:41 01/16/21 09:46 01/16/21 09:51 Temperature Pulse Rate 64 58 L 59 L Respiratory Rate 17 16 16 Blood Pressure 138/70 144/69 H 157/69 H Pulse Oximetry 94 94 93 01/16/21 09:56 01/16/21 10:01 01/16/21 10:06 Temperature Pulse Rate 57 L 56 L 57 L Respiratory Rate 16 18 19 Blood Pressure 157/75 H 164/74 H 170/78 H Pulse Oximetry 94 94 93 01/16/21 10:11 01/16/21 10:26 01/16/21 10:33 Temperature Pulse Rate 57 L 56 L 58 L Respiratory Rate 19 16 22 Blood Pressure 177/85 H 179/82 H 172/75 H Pulse Oximetry 92 93 92 01/16/21 10:48 01/16/21 11:28 01/16/21 13:15 Temperature 98.1 F 97.7 F Pulse Rate 58 L 55 L 56 L Respiratory Rate 18 14 18 Blood Pressure 150/72 H 139/63 144/69 H Pulse Oximetry 94 94 87 L 01/16/21 13:57 Temperature 98.9 F Pulse Rate 57 L Respiratory Rate 14 Blood Pressure 139/74 Pulse Oximetry 91 Oxygen Delivery Method Room Air Oxygen Flow Rate 2 Objective Labs Result Diagrams: 01/16/21 07:44 01/16/21 07:35 Labs: Laboratory Results - last 24 hr 01/16/21 01/16/21 07:35 07:44 Plt Count 79 L Potassium 3.9 PFSH Medical History (Updated 01/15/21 @ 09:46 by Arleen Winslow MD) Alcoholism Allergic rhinitis Anemia (Unknown) Cataracts, bilateral (~01/2017) Cirrhosis (Unknown) CKD (chronic kidney disease) Colon polyps (Unknown) Depression Diabetes (2004) Eczema ESRD (end stage renal disease) (~03/2019) Fibromyalgia (1994) Foot pain GERD (gastroesophageal reflux disease) Gout Hypertension Liver disease (Unknown) Migraines Obstructive sleep apnea, adult Osteoarthritis (Unknown) Pancreatitis (Unknown) Recurrent sinusitis Rosacea Seizures Shoulder pain Stroke Thrombocytopenia Urinary incontinence Surgical History History of third molar tooth extraction (1976) Hx of appendectomy Hx of cholecystectomy Hx of colonoscopy with polypectomy Status post colonoscopy Family History Father Age: 94 Hypertension Arthritis Obesity Mother Hypertension Diabetes mellitus Arthritis Loud snoring Sleep apnea Insomnia Obesity Heart disease Sister Age: 65 Osteoporosis Sister Age: 63 Bipolar 1 disorder Social History household members: spouse Smoking Status: Never smoker alcohol intake: former Assessment & Plan Time Spent With Patient Critical Care time: I spent a total of [] minutes of critical care time on this patient's care today; this time is exclusive of procedural time.
== END 2021-01-16 14:07 | disposition home or self-care (01) ==
PROVIDERS: Anesthesiology; PCP Internal Medicine; Referring Provider Internal Medicine; Visit Provider Ophthalmology
PROC: (CPT 66984; principal; 2021-01-16 07:45)
DX: D69.6 Thrombocytopenia, unspecified (principal); H25.811 Combined forms of age-related cataract, right eye; G47.33 Obstructive sleep apnea (adult) (pediatric); G40.909 Epilepsy, unspecified, not intractable, without status epilepticus; K70.30 Alcoholic cirrhosis of liver without ascites; E11.22 Type 2 diabetes mellitus with diabetic chronic kidney disease; I12.0 Hypertensive chronic kidney disease with stage 5 chronic kidney disease or end stage renal disease; N18.6 End stage renal disease; Z99.2 Dependence on renal dialysis; Z86.73 Personal history of transient ischemic attack (TIA), and cerebral infarction without residual deficits; Z87.891 Personal history of nicotine dependence
CPT/HCPCS: 66984; 84132; 85049; J0171; J2250; J2405; J2704; J3010; J3301

== ENCOUNTER → 2021-02-04 08:45 | Outpatient (CLI) | payer MEDICARE, OTHER, SELFPAY ==
[2020-07-16 16:16] VITALS: RESP 24; O2SAT 96
[2021-02-04 11:02] LABS: COVID19 -Nasal RAPID Negative (Negative)
== END ==
PROVIDERS: PCP Internal Medicine; Visit Provider Nurse Practitioner Family
DX: Z20.822 Contact with and (suspected) exposure to COVID-19 (principal); Z01.812 Encounter for preprocedural laboratory examination
CPT/HCPCS: 87635; C9803

== ENCOUNTER 2021-02-06 05:57 | Day surgery (SDC) | payer MEDICARE, OTHER, SELFPAY ==
[2020-07-16 16:16] VITALS: RESP 24; O2SAT 96
--- NOTE | 2021-02-05 18:28 | PM.OP.1 ---
Operative Date/Time/Diagnoses Date of procedure: 02/06/21 Time of procedure: 08:45 Procedure & Clinicians Procedure: Preoperative diagnoses: 1. Left significant nuclear sclerotic and cortical cataract. 2. Diabetes without retinopathy 3. Renal failure on dialysis 4. Low platelet 5. History of alcoholism 6. Seizures 7. Depressive disorder 8. Sleep apnea Postoperative diagnoses: 1. Cataract removed by phacoemulsification with placement of posterior chamber intraocular lens. Procedure: Phacoemulsification with posterior chamber intraocular lens implant Surgeon: Loly Goode MD Complications: None Specimen: None Implant: DIBOO+21.0 Blood loss: None Anesthesia: General laryngeal mask airway with monitored standby due to low platelet count. Description of procedure: Patient presents with a complaint of decreased vision due to cataract which is affecting activities of daily living. She is a diabetic with history of low platelet count. She has renal failure and has dialysis 3 to 5 times a week. She is having trouble seeing television or reading her insulin syringes. She wants surgery to improve vision. She is on dialysis and has low platelet count preventing a local retrobulbar block as well as sleep apnea. She will require general anesthesia with laryngeal mask airway to improve safety. She understands the extra risk of surgery during the COVID-19 epidemic and wishes to proceed. She has tested negative for active virus within 72 hours of the procedure. Preoperative testing of platelets and glucose occurred. Low platelets 70,000 are present the potassium is 4.5. Dialysis is planned for tomorrow. With further discussion she continues to want a general anesthetic due to sleep apnea and restless leg syndrome. She has high intraoperative hemorrhaging risk with retrobulbar and this is not an option. The patient was taken to the operating room and given IV sedation. A laryngeal mask airway was placed The eye is manually massaged for 30 sec, prepped using Betadine solution, and draped in the usual sterile fashion. Temporal approach was made, a 1 mm side-port incision was made 90? from the proposed clear corneal incision position. Phenylephrine 1.5% mixed with 1% xylocaine 0.2 cc was placed into the anterior chamber. Endocoat followed by Healon was then placed. A 2.6 mm clear incision with a 2.6 mm blade was placed. A 360 degree capsulorrhexis style capsulotomy was then performed with a cystitome needle on a Healon. Extra EndoCoat was used to help deepen the chamber. Hydrodelineation and hydrodissection were performed. The phacoemulsification unit is introduced, and sculpting notice used to groove the central lens. It is then removed in chopping mode. Epi nucleus is removed with epinuclear mode and irrigation aspiration was used to remove the peripheral cortex. The posterior capsule is polished. The intraocular lens is selected, inspected, power confirmed, and placed in the posterior chamber. The wound was stromally hydrated and tested for leaks, there was none and it was left sutureless. Anterior chamber had a air bubble placed and the pupil was constricted with Miostat to confirm that there was no vitreous loss. None was seen. Moxifloxacin 0.1 cc was placed into the anterior chamber. Kenalog 0.2 cc was placed in the inferiorsubconjunctival space. She did hemorrhage superficially from this injection it spontaneously. A contact lens was placed for extra comfort. Adrop of antibiotic and was placed and the eye was patched and shielded. The patient was stable and returned to the recovery room in excellent condition. Dictated by: Loly Goode MD Copy to: [facility] Same procedure as scheduled: Yes
--- NOTE | 2021-02-05 18:36 | PM.PREOP ---
Pre-operative Note COVID-19 COVID-19 status: Negative Interval Note History & Physical reviewed/Exam performed by Physician: Yes Changes to H&P: No H&P completed within 30 days and has changed as indicated here:: Fasting glucose today is 193 . Platelet count today is 70 thousand and potassium 4.5. Patient wishes to proceed with laryngeal mask general anesthesia due to her sleep apnea restless leg syndrome. Anesthesia has reviewed her history.
[2021-02-06] VITALS (12 sets, daily range): BP systolic 103–168; BP diastolic 50–79; PULSE 53–60; RESP 14–19; TEMP 36.3–37.1; O2SAT 91–97; BMI 27.1
[2021-02-06] MEDS: PROPARACAINE 0.5% OPHTH SOL 2 DROPS EYE-OP (07:44)
[2021-02-06] MEDS: CATARACT EYE COMPOUND (10 DROPS/SYRINGE) 3 DROPS EYE-OP (07:55)
[2021-02-06] MEDS: LACTATED RINGERS 1,000 ML 42 ML IV (08:02)
[2021-02-06 08:08] LABS: Hematocrit 29.2 % (36-46); Hemoglobin 9.8 g/dL (12.0-16.0); Mean Corpuscular HGB Conc 33.7 % (30-36); Platelet Count 70 X10^3/uL (150-400); Red Blood Cell Count 2.98 X10^6/uL (4.0-5.2); Red Cell Distribution Width 16.6 % (11.6-14.8); White Blood Cell Count 3.2 X10^3/uL (4.5-11.0)
[2021-02-06 08:16] LABS: BUN Creatinine Ratio 4.2 (6-22); Blood Urea Nitrogen 23 mg/dL (7-17); Calcium 10.2 mg/dL (8.4-10.2); Carbon Dioxide 24 mmol/L (22-32); Chloride 95 mmol/L (98-107); Estimated Glomerular Filt Rate 7.9 mL/min (>60); Glucose 167 mg/dL (80-110); HEMOLYSIS < 15 (0-50); Potassium 4.5 mmol/L (3.4-5.1); Sodium 134 mmol/L (137-145)
--- NOTE | 2021-02-06 08:17 | SUR.OPER ---
Supine on eye stretcher, head on extension cradle secured with tape. Arms tucked at sides with blanket. Pillow under knees.
[2021-02-06] MEDS: MOXIFLOXACIN INJ 4 MG/0.8 ML VIAL 0.5 MG EYE-OP (09:12)
[2021-02-06] MEDS: HYALURONATE SODIUM 30 MG-10 MG/ML SYRINGES 1 BOX INTRAOCULA (09:12)
[2021-02-06] MEDS: PHENYLEPHRINE/LIDOCAINE VIAL (OR) 0.2 ML EYE-OP (09:15)
[2021-02-06] MEDS: BALANCED SALT IRRIG SOLN NO.2 500 ML, EPINEPHrine 1 MG IRR (09:15)
[2021-02-06] MEDS: TRIAMCINOLONE 50 MG/5 ML VIAL INJ (09:15)
[2021-02-06] MEDS: ERYTHROMYCIN OPHTH 1 GM OINT 1 APPLIC EYE-LEFT (09:18)
[2021-02-06] MEDS: CARBACHOL 1.5 ML VIAL INJ (09:50)
--- NOTE | 2021-02-06 11:43 | SUR.PHASEII ---
Pt arrived from PACU placed on continuous pulse ox and o2 at 4/l, decreased to 2/l sats remain greater than 95%. called when arrived to Phase 2 for an update, did not answer phone, but message left.
--- NOTE | 2021-02-06 12:45 | SUR.PHASEII ---
Sats maintained on room air, on his way to pick pt up.
--- NOTE | 2021-02-06 13:04 | SUR.PHASEII ---
Assisted pt to dress, steady when up.
--- NOTE | 2021-02-06 13:33 | SUR.PHASEII ---
finally arrived, pt left in stable condition.
== END 2021-02-06 13:30 | disposition home or self-care (01) ==
LOC: OR 06:00
PROVIDERS: Anesthesiology; PCP Internal Medicine; Referring Provider Ophthalmology; Visit Provider Ophthalmology
PROC: (CPT 66984; principal; 2021-02-06 08:45)
DX: H25.812 Combined forms of age-related cataract, left eye (principal); E11.9 Type 2 diabetes mellitus without complications; G47.30 Sleep apnea, unspecified; R56.9 Unspecified convulsions; F32.9 Major depressive disorder, single episode, unspecified; N18.6 End stage renal disease; Z99.2 Dependence on renal dialysis; I10 Essential (primary) hypertension; Z79.84 Long term (current) use of oral hypoglycemic drugs
CPT/HCPCS: 66984; 36415; 80048; 82962; 85027; J0171; J2704; J3010; J3301

== ENCOUNTER 2021-04-29 06:18 | Emergency (ER) | payer MEDICARE, OTHER, SELFPAY ==
[2020-07-16 16:16] VITALS: RESP 24; O2SAT 96
[2021-04-29 06:25] VITALS: BP 141/71; PULSE 66; RESP 16; TEMP 36.3; O2SAT 94; BMI 28.4
--- NOTE | 2021-04-29 06:45 | DI.US.S_ITS ---
PROCEDURE: US ABDOMEN LIMITED INDICATIONS: PALPABLE ABDOMINAL WALL LUMPS TECHNIQUE: Real-time scanning was performed of the abdominal and retroperitoneal organs, with image documentation. COMPARISON: [facility], , US ABDOMEN LIMITED, 10/11/2019, 13:36. FINDINGS: Subcutaneous edema is present. There is no focal mass identified. IMPRESSION: Prominent subcutaneous edema. Dictated by: Lacie Fernandez M.D. on 04/29/2021 at 8:30 Approved by: Lacie Fernandez M.D. on 04/29/2021 at 8:41
--- NOTE | 2021-04-29 06:50 | ED_ITS ---
HPI - Skin/Abscess/Foreign Bdy General Chief complaint: Skin/Abscess/Foreign Body Stated complaint: abd stabbing/burning pain x1 day Time Seen by Provider: 04/29/21 06:34 Source: patient Mode of arrival: Ambulatory Limitations: no limitations Related Data Previous Rx's Medication Instructions Recorded Disabled Parking Permit #1 ea 04/06/18 Glucometer #1 ea 01/19/19 Freestyle Lite Test Strips #100 each 08/15/19 Glucose: Test Strips #400 each NS 08/15/19 Micro Fine Insulin [place] #200 each 10/01/20 insulin aspart U-100 100 unit/mL 10 unit (0.1 mL) SUBCUT DAILY PRN 10/26/20 (3 mL) subcutaneous pen (Novolog #90 ml Flexpen U-100 Insulin aspart) labetalol 100 mg tablet 100 mg PO BID #180 tab 11/06/20 levetiracetam 500 mg tablet 500 mg PO DAILY #90 tab 11/09/20 amlodipine 5 mg tablet 5 mg PO DAILY #90 tab 11/13/20 insulin detemir U-100 100 unit/mL 10 unit (0.1 mL) SUBCUT QDAY #90 ml 11/14/20 (3 mL) subcutaneous pen (Levemir FlexTouch U-100 Insulin) Allergies Allergy/AdvReac Type Severity Reaction Status Date / Time peanut [PEANUT] Allergy Mild Face Verified 01/16/21 07:12 swelling latex [LATEX] Allergy Unknown Verified 01/16/21 07:12 metformin [METFORMIN] Allergy Unknown Jaundice Verified 01/16/21 07:12 monosodium glutamate Allergy Unknown Verified 01/16/21 07:12 [MONOSODIUM GLUTAMATE] spironolactone Allergy Unknown Verified 01/16/21 07:12 [SPIRONOLACTONE] aspirin [ASPIRIN] AdvReac Unknown Vomiting Verified 01/16/21 07:12 esomeprazole [ESOMEPRAZOLE] AdvReac Unknown Nausea Verified 01/16/21 07:12 fluoxetine [FLUOXETINE] AdvReac Unknown Became Verified 01/16/21 07:12 violent gabapentin [GABAPENTIN] AdvReac Unknown N/V Verified 01/16/21 07:12 prednisone [PREDNISONE] AdvReac Unknown Hives/itchi Verified 01/16/21 07:12 ng Sulfa (Sulfonamide AdvReac Unknown Rash/pain Verified 08/30/20 14:51 Antibiotics) [SULFA (SULFONAMIDE ANTIBIOTICS)] Patient History Medical History (Updated 01/15/21 @ 09:46 by Arleen Winslow MD) Alcoholism Allergic rhinitis Anemia (Unknown) Cataracts, bilateral (~01/2017) Cirrhosis (Unknown) CKD (chronic kidney disease) Colon polyps (Unknown) Depression Diabetes (2004) Eczema ESRD (end stage renal disease) (~03/2019) Fibromyalgia (1995) Foot pain GERD (gastroesophageal reflux disease) Gout Hypertension Liver disease (Unknown) Migraines Obstructive sleep apnea, adult Osteoarthritis (Unknown) Pancreatitis (Unknown) Recurrent sinusitis Rosacea Seizures Shoulder pain Stroke Thrombocytopenia Urinary incontinence Surgical History History of third molar tooth extraction (1976) Hx of appendectomy Hx of cholecystectomy Hx of colonoscopy with polypectomy Status post colonoscopy Family History Father Age: 94 Hypertension Arthritis Obesity Mother Hypertension Diabetes mellitus Arthritis Loud snoring Sleep apnea Insomnia Obesity Heart disease Sister Age: 65 Osteoporosis Sister Age: 63 Bipolar 1 disorder Social History household members: spouse Smoking Status: Never smoker alcohol intake: former Smoking Status: Never smoker Substance Use Type: does not use Exam Initial Vital Signs Initial Vital Signs: Vital Signs Temperature 97.4 F L 04/29/21 06:25 Pulse Rate 66 04/29/21 06:25 Respiratory Rate 16 04/29/21 06:25 Blood Pressure 141/71 H 04/29/21 06:25 Pulse Oximetry 94 04/29/21 06:25 Course Orders Ordered: ED Orders 04/29/21 06:45 US abdomen limited Stat Vital Signs Vital signs: Vital Signs - 8 hr 04/29/21 06:25 Temperature 97.4 F L Pulse Rate 66 Respiratory Rate 16 Blood Pressure 141/71 H Pulse Oximetry 94 Discharge Plan Departure Prescriptions: No Action (DME) Disabled Parking Permit Qty: 1 0RF Dose Instruction: As directed Rx Instructions: As directed (DME) Glucometer Qty: 1 0RF Rx Instructions: Freestyle [place] 14 Day glucometer to check blood sugar up to QID (DME) Glucose: Test Strips 0 .Route .MEDSUPPLY Qty: 400 3RF Dose Instruction: As directed Rx Instructions: Use to test blood sugars 3-4 times daily. (DME) Freestyle Lite Test Strips Qty: 100 3RF Rx Instructions: Use to test blood sugars 3-4x a day (DME) Micro Fine Insulin [place] Qty: 200 3RF Rx Instructions: Inject insulin (Novolog and Levemir) once daily or as directed by physician Novolog Flexpen U-100 Insulin 100 unit/mL (3 mL) insulin pen 10 unit SUBCUT DAILY PRN (Reason: diabetes) Qty: 90 3RF labetalol 100 mg tablet 100 mg PO BID Qty: 180 3RF levetiracetam 500 mg tablet 500 mg PO DAILY Qty: 90 3RF amlodipine 5 mg tablet 5 mg PO DAILY Qty: 90 3RF Levemir FlexTouch U-100 Insuln 100 unit/mL (3 mL) insulin pen 10 unit SUBCUT QDAY Qty: 90 3RF Referrals: Darryl Jj MD [Primary Care Provider] -
--- NOTE | 2021-04-29 07:45 | ED_ITS ---
HPI - Skin/Abscess/Foreign Bdy General Chief complaint: Skin/Abscess/Foreign Body Stated complaint: abd stabbing/burning pain x1 day Time Seen by Provider: 04/29/21 06:34 Source: patient Mode of arrival: Ambulatory Limitations: no limitations History of Present Illness HPI narrative: 61-year-old woman with insulin dependent type 2 diabetes, renal failure on dialysis, hypertension, seizure disorder who presents today complaining of skin changes over the lower abdomen that are quite painful. She notes that she has had some of the changes for an extended period of time but over the last week or so things seem to gotten worsened over the last couple of days they have gotten painful. She describes no fever, cough, chills. She is not having significant lower extremity edema. She complains of no chest pain or palpitations today. Related Data Previous Rx's Medication Instructions Recorded Disabled Parking Permit #1 ea 04/06/18 Glucometer #1 ea 01/19/19 Freestyle Lite Test Strips #100 each 08/15/19 Glucose: Test Strips #400 each NS 08/15/19 Micro Fine Insulin [place] #200 each 10/01/20 insulin aspart U-100 100 unit/mL 10 unit (0.1 mL) SUBCUT DAILY PRN 10/26/20 (3 mL) subcutaneous pen (Novolog #90 ml Flexpen U-100 Insulin aspart) labetalol 100 mg tablet 100 mg PO BID #180 tab 11/06/20 levetiracetam 500 mg tablet 500 mg PO DAILY #90 tab 11/09/20 amlodipine 5 mg tablet 5 mg PO DAILY #90 tab 11/13/20 insulin detemir U-100 100 unit/mL 10 unit (0.1 mL) SUBCUT QDAY #90 ml 11/14/20 (3 mL) subcutaneous pen (Levemir FlexTouch U-100 Insulin) cephalexin 500 mg capsule 500 mg PO TID #21 cap 04/29/21 oxycodone-acetaminophen 5 mg-325 1 tab PO Q6H PRN #14 tab 04/29/21 mg tablet Allergies Allergy/AdvReac Type Severity Reaction Status Date / Time peanut [PEANUT] Allergy Mild Face Verified 01/16/21 07:12 swelling latex [LATEX] Allergy Unknown Verified 01/16/21 07:12 metformin [METFORMIN] Allergy Unknown Jaundice Verified 01/16/21 07:12 monosodium glutamate Allergy Unknown Verified 01/16/21 07:12 [MONOSODIUM GLUTAMATE] spironolactone Allergy Unknown Verified 01/16/21 07:12 [SPIRONOLACTONE] aspirin [ASPIRIN] AdvReac Unknown Vomiting Verified 01/16/21 07:12 esomeprazole [ESOMEPRAZOLE] AdvReac Unknown Nausea Verified 01/16/21 07:12 fluoxetine [FLUOXETINE] AdvReac Unknown Became Verified 01/16/21 07:12 violent gabapentin [GABAPENTIN] AdvReac Unknown N/V Verified 01/16/21 07:12 prednisone [PREDNISONE] AdvReac Unknown Hives/itchi Verified 01/16/21 07:12 ng Sulfa (Sulfonamide AdvReac Unknown Rash/pain Verified 08/30/20 14:51 Antibiotics) [SULFA (SULFONAMIDE ANTIBIOTICS)] Review of Systems Review of Systems Narrative: Remainder of complete review of systems is otherwise unremarkable except for t hat included in the HPI. Patient History Medical History Alcoholism Allergic rhinitis Anemia (Unknown) Cataracts, bilateral (~01/2017) Cirrhosis (Unknown) CKD (chronic kidney disease) Colon polyps (Unknown) Depression Diabetes (2003) Eczema ESRD (end stage renal disease) (~03/2019) Fibromyalgia (1994) Foot pain GERD (gastroesophageal reflux disease) Gout Hypertension Liver disease (Unknown) Migraines Obstructive sleep apnea, adult Osteoarthritis (Unknown) Pancreatitis (Unknown) Recurrent sinusitis Rosacea Seizures Shoulder pain Stroke Thrombocytopenia Urinary incontinence Surgical History History of third molar tooth extraction (1976) Hx of appendectomy Hx of cholecystectomy Hx of colonoscopy with polypectomy Status post colonoscopy Family History Father Age: 94 Hypertension Arthritis Obesity Mother Hypertension Diabetes mellitus Arthritis Loud snoring Sleep apnea Insomnia Obesity Heart disease Sister Age: 66 Osteoporosis Sister Age: 64 Bipolar 1 disorder Other Obstructive sleep apnea, adult Social History household members: spouse Smoking Status: Never smoker alcohol intake: former Smoking Status: Never smoker Substance Use Type: does not use Exam Narrative Exam Narrative: General: Chronically ill-appearing but in no acute distress. Able to give a complete and coherent history. HEENT: Moist mucous membranes, normal sclera with reactive pupils, Respiratory: Lungs are clear to auscultation, no wheezing no rales no rhonchi. Full and symmetrical air movement Cardiac: Regular rate and rhythm , 4/6 systolic ejection murmur Abdomen: Soft, the lower abdominal wall has chronic skin changes from years of injection insulin. Skin: She has ?[id number] with hypertrophic changes worse on the right side of the lower abdomen but including the entire lower abdomen. There is no eryth delmar and no fluctuance over the area. Neurologic: Grossly neurologically intact with no obvious asymmetries or abnormalities Extremities: No trauma, Psych: Cooperative, appropriate insight and affect Initial Vital Signs Initial Vital Signs: Vital Signs Temperature 97.4 F L 04/29/21 06:25 Pulse Rate 66 04/29/21 06:25 Respiratory Rate 16 04/29/21 06:25 Blood Pressure 141/71 H 04/29/21 06:25 Pulse Oximetry 94 04/29/21 06:25 Course Orders Ordered: ED Orders 04/29/21 06:45 US abdomen limited Stat Discontinued Medications Cephalexin HCl (Cephalexin 250 Mg Capsule) 500 mg PO NOW ONE Stop: 04/29/21 07:40 Oxycodone/Acetaminophen (Oxycodone/Acetaminophen 5/325 Tablet) 1 tab PO NOW ONE Stop: 04/29/21 07:40 Vital Signs Vital signs: Vital Signs - 8 hr 04/29/21 06:25 Temperature 97.4 F L Pulse Rate 66 Respiratory Rate 16 Blood Pressure 141/71 H Pulse Oximetry 94 MDM - Skin/Abscess/Foreign Bdy Imaging Data Ultrasound: My Impression: Discussed with tech, superficial ultrasound over the lower abdominal skin shows only dermal induration with no evidence of abscess MDM Narrative Medical decision making narrative: 61-year-old woman with chronic dermal changes over lower abdomen from years of injection insulin use. Over the last week and more specifically the last couple of days she has been having more pain superficially over those areas. There is a bit more induration but no evidence of abscess or infection. I suspect that she is having increased fatty breakdown in the area of lower lipohypertrophy. At this point I do not see an abscess or suspect cellulitis or sepsis. However she certainly is at risk for that will start her on cephalexin and suggested that all of her injection be well above the areas of chronic dermal changes. She is due for her dialysis this afternoon. 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 She is safe for home discharge Discharge Plan Departure Patient Disposition: Home Clinical Impression: Lipohypertrophy, Diabetes, Chronic kidney disease on chronic dialysis Instructions: DI for Wound Infection Activity Restrictions/Additional Instructions: Thank you for coming in today The chronic thickness in changes in the lower part of your abdomen are from years of injecting insulin. This is called lipohypertrophy. With increasing pain I am concerned that there may be some infection developing. The ultrasound today shows only swelling in the tissue with no deeper abscesses. You do not have an overt cellulitis and I want to make sure that you do not an obvious cellulitis It may be that some of the thickened fatty tissue just under the skin in the area is simply beginning to break down and will be reabsorbed and that may be causing some of the pain. I am going to suggest that you use 1 Percocet every 6 hours as needed for severe pain. This will cause constipation please make sure you are using stool softeners I am also going to place you on 7 days of cephalexin. I have given you the 1st dose today and would like your next dose to be after your dialysis this afternoon If you develop a fever, increasing redness around the area increasing swelling or other signs of infection you need to return to the ER In the meantime, you need to do your insulin injections at the level of your belly button or a bit higher to avoid adding to this complication. I wish you the best Prescriptions: New oxycodone-acetaminophen 5-325 mg tablet 1 tab PO Q6H PRN (Reason: pain) Qty: 14 0RF cephalexin 500 mg capsule 500 mg PO TID Qty: 21 0RF No Action (DME) Disabled Parking Permit Qty: 1 0RF Dose Instruction: As directed Rx Instructions: As directed (DME) Glucometer Qty: 1 0RF Rx Instructions: Freestyle Raymond 14 Day glucometer to check blood sugar up to QID (DME) Glucose: Test Strips 0 .Route .MEDSUPPLY Qty: 400 3RF Dose Instruction: As directed Rx Instructions: Use to test blood sugars 3-4 times daily. (DME) Freestyle Lite Test Strips Qty: 100 3RF Rx Instructions: Use to test blood sugars 3-4x a day (DME) Micro Fine Insulin [place] Qty: 200 3RF Rx Instructions: Inject insulin (Novolog and Levemir) once daily or as directed by physician Novolog Flexpen U-100 Insulin 100 unit/mL (3 mL) insulin pen 10 unit SUBCUT DAILY PRN (Reason: diabetes) Qty: 90 3RF labetalol 100 mg tablet 100 mg PO BID Qty: 180 3RF levetiracetam 500 mg tablet 500 mg PO DAILY Qty: 90 3RF amlodipine 5 mg tablet 5 mg PO DAILY Qty: 90 3RF Levemir FlexTouch U-100 Insuln 100 unit/mL (3 mL) insulin pen 10 unit SUBCUT QDAY Qty: 90 3RF Referrals: Darryl Jj MD [Primary Care Provider] -
[2021-04-29] MEDS: OXYCODONE/ACETAMINOPHEN 5/325 TABLET 1 TAB PO (08:08)
[2021-04-29] MEDS: cephALEXin 250 MG CAPSULE 500 MG PO (08:08)
== END 2021-04-29 08:20 | disposition home or self-care (01) ==
PROVIDERS: Emergency Provider Emergency Medicine; PCP Internal Medicine
DX: E88.1 Lipodystrophy, not elsewhere classified (principal); E11.22 Type 2 diabetes mellitus with diabetic chronic kidney disease; N18.9 Chronic kidney disease, unspecified; Z79.4 Long term (current) use of insulin
CPT/HCPCS: 76705; 99283

== ENCOUNTER → 2021-06-12 14:12 | Outpatient (CLI) | payer MEDICARE, OTHER, SELFPAY ==
[2020-07-16 16:16] VITALS: RESP 24; O2SAT 96
== END ==
PROVIDERS: PCP Internal Medicine; Referring Provider Internal Medicine; Visit Provider Internal Medicine
DX: Z78.0 Asymptomatic menopausal state (principal); Z13.820 Encounter for screening for osteoporosis; M81.0 Age-related osteoporosis without current pathological fracture; E11.9 Type 2 diabetes mellitus without complications; N28.9 Disorder of kidney and ureter, unspecified; Z82.62 Family history of osteoporosis
CPT/HCPCS: 77080

== ENCOUNTER 2021-06-20 14:28 | Emergency (ER) | payer MEDICARE, OTHER, SELFPAY ==
[2020-07-16 16:16] VITALS: RESP 24; O2SAT 96
[2021-06-20 15:01] VITALS: BP 121/63; PULSE 60; RESP 17; TEMP 37.2; O2SAT 95; BMI 27.1
== END 2021-06-20 15:55 | disposition left against medical advice (07) ==
PROVIDERS: Emergency Provider Emergency Medicine
DX: Z53.21 Procedure and treatment not carried out due to patient leaving prior to being seen by health care provider (principal)
CPT/HCPCS: 99281

== ENCOUNTER 2021-06-24 02:26 | Emergency (ER) | payer MEDICARE, OTHER, SELFPAY ==
[2020-07-16 16:16] VITALS: RESP 24; O2SAT 96
[2021-06-24] VITALS (11 sets, daily range): BP systolic 111–129; BP diastolic 59–85; PULSE 55–62; RESP 19–20; TEMP 36.7; O2SAT 80–99; BMI 28.4
[2021-06-24] MEDS: HYDROMORPHONE 0.5 MG INJ IV (02:49)
[2021-06-24 03:01] LABS: Add Manual Diff / Slide Review NO; Basophils Absolute Auto 100 /uL (0-100); Basophils Percent Auto 1.7 % (0-2); Eosinophils Absolute Auto 200 /uL (0-450); Eosinophils Percent Auto 5.2 % (2-4); Hematocrit 26.4 % (36-46); Hemoglobin 8.8 g/dL (12.0-16.0); Lymphocytes Absolute Auto 900 /uL (1100-4500); Mean Corpuscular HGB Conc 33.4 % (30-36); Mean Corpuscular Hemoglobin 31.5 PG (26-34); Mean Corpuscular Volume 94.4 fL (80-100); Monocytes Absolute Auto 400 /uL (0-900); Monocytes Percent Auto 11.6 % (3-14); Neutrophils Absolute Auto 2200 /uL (1500-7000); Neutrophils Percent Auto 57.5 % (50-75); Platelet Count 102 X10^3/uL (150-400); Red Blood Cell Count 2.79 X10^6/uL (4.0-5.2); White Blood Cell Count 3.8 X10^3/uL (4.5-11.0)
[2021-06-24 03:04] LABS: COVID19 -Nasal RAPID Negative (Negative)
[2021-06-24 03:07] LABS: Alanine Aminotransferase 13 IU/L (<35); Albumin 3.8 g/dL (3.5-5.0); Alkaline Phosphatase 65 U/L (38-126); Aspartate Aminotransferase 25 IU/L (14-36); BUN Creatinine Ratio 4.5 (6-22); Blood Urea Nitrogen 22 mg/dL (7-17); Calcium 9.1 mg/dL (8.4-10.2); Carbon Dioxide 31 mmol/L (22-32); Chloride 100 mmol/L (98-107); Estimated Glomerular Filt Rate 9.1 mL/min (>60); Globulin 3.8 g/dL (1.7-4.1); Glucose 136 mg/dL (80-110); HEMOLYSIS < 15 (0-50); Potassium 4.1 mmol/L (3.4-5.1); Sodium 138 mmol/L (137-145); Total Protein 7.6 g/dL (6.3-8.2)
[2021-06-24 03:08] LABS: Magnesium 2.5 mg/dL (1.6-2.3); Phosphorous 6.8 mg/dL (2.8-4.1)
[2021-06-24 03:33] LABS: NT-proBNP (BNP-Adult 18+) 74400 pg/mL (<125)
--- NOTE | 2021-06-24 03:36 | DI.CT.S_ITS ---
PROCEDURE: CT ABDOMEN PELVIS W CON INDICATIONS: pain, redness, swelling, abscess? TECHNIQUE: After the administration of intravenous contrast, axial sections acquired from the lung bases to the pubic symphysis. Coronal and sagittal reformats were performed. For radiation dose reduction, the following was used: automated exposure control, adjustment of mA and/or kV according to patient size. COMPARISON: [facility], CT, ABDOMEN W&W/O CONTRAST, 10/05/2014, 8:00. FINDINGS: Image quality: Excellent. Lung bases: Small to moderate-sized right and small left pleural effusions. Heart: Heart is enlarged. Mitral annulus calcifications noted. ABDOMEN: Liver: Liver has nodular margins suggestive of hepatic cirrhosis. Gallbladder: Is within normal limits Biliary ducts: Unremarkable. Pancreas: Multiple pancreatic calcifications stable compared to prior exam. Dilatation of the pancreatic duct and multiple pancreatic cysts demonstrate interval increase in size compared to 10/05/2014. Spleen: Is enlarged. Adrenal Glands: Unremarkable. Kidneys and Ureters: Severely atrophy. Stomach and Bowel: Stomach, small bowel loops, and colon are unremarkable. Scattered colonic diverticuli without evidence of diverticulitis. Peritoneum: Small amount of scattered ascites. No free air. Ventral Wall: No hernias. Abdominal Nodes: No retroperitoneal or mesenteric adenopathy by size criteria. Vessels: Aorta and inferior vena cava are normal in size. Scattered atherosclerotic calcifications involving the abdominal and pelvic vasculature. Multiple splenorenal and spleno- systemic venous varices are noted compatible with sequela of chronic portal venous hypertension. PELVIS: Pelvic Organs: Unremarkable. Bladder: Unremarkable. Pelvic Nodes: No enlarged lymph nodes. Miscellaneous: Edema identified in the body wall compatible with anasarca. Bones: Spine degenerative disc disease and facet arthropathy. IMPRESSION: 1. Small to moderate-sized right and small left pleural effusions. 2. Cardiomegaly. 3. Hepatic cirrhosis. 4. Splenomegaly and splenorenal venous varices compatible with sequela of chronic portal hypertension. 5. Sequela of chronic pancreatitis including pancreatic calcifications, pancreatic ductal dilatation and pancreatic cysts. 6. Severe renal atrophy. 7. Small amount of scattered ascites. 8. Colonic diverticulosis without evidence of diverticulitis. 9. Anasarca. Dictated by: Winifred Unger MD, PhD on 06/24/2021 at 8:15 Approved by: Winifred Unger MD, PhD on 06/24/2021 at 8:23
--- NOTE | 2021-06-24 04:02 | ED.EXTPRO ---
HPI - Extremity Problem General Chief complaint: Extremity Problem,Nontraumatic Stated complaint: left hip pain, skin is purple Time Seen by Provider: 06/24/21 02:28 Source: patient and family Mode of arrival: Wheelchair History of Present Illness HPI Narrative: 61-year-old female nonsmoker with history of diabetes, fibromyalgia, chronic NSAID use leading to end-stage renal disease and now Thursday, , Thursday hemodialysis managed at [facility], liver failure and being considered by the [facility] for liver and renal transplant presents with family in the chief complaint of painful discolored skin overlying her left lateral hip. She denies any injury, trauma or fall. She denies any prolonged position. She states that she had similar symptoms about 1 month ago when she was seen here and was diagnosed with hypo hypertrophy and treated with pain medications and antibiotics. She states that much of the region of concern is greatly improved after the above-stated therapies but now she is having this discomfort overlying her hip, she states it is quite painful, particularly with motion and even the slightest touch. She has not had any changes in her medications and has been receiving chronic treatments as previously planned. She has had no fever or chills nor nausea, vomiting or diarrhea. She is persistently short of breath but no more so than normal. Related Data Previous Rx's Medication Instructions Recorded Disabled Parking Permit #1 ea 04/06/18 Glucometer #1 ea 01/19/19 Freestyle Lite Test Strips #100 each 08/15/19 Glucose: Test Strips #400 each NS 08/15/19 Micro Fine Insulin Truxton #200 each 10/01/20 insulin aspart U-100 100 unit/mL 10 unit (0.1 mL) SUBCUT DAILY PRN 10/26/20 (3 mL) subcutaneous pen (Novolog #90 ml Flexpen U-100 Insulin aspart) labetalol 100 mg tablet 100 mg PO BID #180 tab 11/06/20 levetiracetam 500 mg tablet 500 mg PO DAILY #90 tab 11/09/20 amlodipine 5 mg tablet 5 mg PO DAILY #90 tab 11/13/20 insulin detemir U-100 100 unit/mL 10 unit (0.1 mL) SUBCUT QDAY #90 ml 11/14/20 (3 mL) subcutaneous pen (Levemir FlexTouch U-100 Insulin) doxycycline hyclate 100 mg tablet 100 mg PO BID #20 tab 06/24/21 oxycodone 5 mg tablet 5 mg PO Q4-6H PRN #10 tab 06/24/21 Allergies Allergy/AdvReac Type Severity Reaction Status Date / Time peanut [PEANUT] Allergy Mild Face Verified 06/20/21 15:01 swelling latex [LATEX] Allergy Unknown Verified 06/20/21 15:01 metformin [METFORMIN] Allergy Unknown Jaundice Verified 06/20/21 15:01 monosodium glutamate Allergy Unknown Verified 06/20/21 15:01 [MONOSODIUM GLUTAMATE] spironolactone Allergy Unknown Verified 06/20/21 15:01 [SPIRONOLACTONE] aspirin [ASPIRIN] AdvReac Unknown Vomiting Verified 06/20/21 15:01 esomeprazole [ESOMEPRAZOLE] AdvReac Unknown Nausea Verified 06/20/21 15:01 fluoxetine [FLUOXETINE] AdvReac Unknown Became Verified 06/20/21 15:01 violent gabapentin [GABAPENTIN] AdvReac Unknown N/V Verified 06/20/21 15:01 prednisone [PREDNISONE] AdvReac Unknown Hives/itchi Verified 06/20/21 15:01 ng Sulfa (Sulfonamide AdvReac Unknown Rash/pain Verified 08/30/20 14:51 Antibiotics) [SULFA (SULFONAMIDE ANTIBIOTICS)] Review of Systems Review of Systems Narrative: GENERAL: See HPI. HEENT: Denies sinus pain, ear pain, sore throat, difficulty swallowing, dizziness. RESPIRATORY: See HPI. CARDIOVASCULAR: Denies chest pain, palpitations, orthopnea, edema, GASTROINTESTINAL: Denies nausea, vomiting, abdominal pain, diarrhea, constipation, melena. : Denies dysuria, frequency, incontinence, hematuria, urinary retention. MUSCULOSKELETAL: denies weakness, joint pain, or bony pain SKIN: See HPI NEUROLOGIC: Denies weakness, headache, numbness, change in speech, confusion, seizures, incoordination. PSYCHIATRIC: No concerning psychosocial issues. 12 point review of systems is negative except for those stated above Patient History Medical History Alcoholism Allergic rhinitis Anemia (Unknown) Cataracts, bilateral (~01/2017) Cirrhosis (Unknown) CKD (chronic kidney disease) Colon polyps (Unknown) Depression Diabetes (2003) Eczema ESRD (end stage renal disease) (~03/2019) Fibromyalgia (1994) Foot pain GERD (gastroesophageal reflux disease) Gout Hypertension Liver disease (Unknown) Migraines Obstructive sleep apnea, adult Osteoarthritis (Unknown) Pancreatitis (Unknown) Recurrent sinusitis Rosacea Seizures Shoulder pain Stroke Thrombocytopenia Urinary incontinence Surgical History History of third molar tooth extraction (1976) Hx of appendectomy Hx of cholecystectomy Hx of colonoscopy with polypectomy Status post colonoscopy Family History Father Age: 94 Hypertension Arthritis Obesity Mother Hypertension Diabetes mellitus Arthritis Loud snoring Sleep apnea Insomnia Obesity Heart disease Sister Age: 66 Osteoporosis Sister Age: 64 Bipolar 1 disorder Other Obstructive sleep apnea, adult Social History household members: spouse Smoking Status: Never smoker alcohol intake: former Smoking Status: Never smoker alcohol intake frequency: other Substance Use Type: marijuana Exam Narrative Exam Narrative: GENERAL: [61] year old patient appears older than stated age. Chronic illness, obviously in pain, rubbing her left hip HEAD: Atraumatic. Normocephalic. EYES: Pupils equal round and reactive. Extraocular motions intact. No scleral icterus. No injection or drainage. ENT: Nose without bleeding, purulent drainage. Throat without erythema, tonsillar hypertrophy or exudate. Airway patent. NECK: Trachea midline. Non tender CARDIOVASCULAR: Regular rate and rhythm without murmurs, gallops, or rubs. RESPIRATORY: Clear to auscultation. Breath sounds equal bilaterally. No wheezes, rales, or rhonchi. GASTROINTESTINAL: Abdomen soft, non-tender, mild distension chronic per patient. EXTREMITIES: No edema or joint tenderness. BACK: Nontender without deformity or crepitance. No flank tenderness. NEURO: AOx3. SKIN: 10x4 cm area of skin darkening, induration and hypertrophy with minimal surrounding erythema overlying left hip. No fluctuance or drainage. Extremely tender to palpation Initial Vital Signs Initial Vital Signs: Vital Signs Temperature 98.1 F 06/24/21 02:39 Pulse Rate 60 06/24/21 02:39 Respiratory Rate 20 06/24/21 02:39 Blood Pressure 120/59 L 06/24/21 02:39 Pulse Oximetry 80 L 06/24/21 02:39 Course Orders Ordered: ED Orders 06/24/21 02:30 COVID19 -Nasal swab/Pre-Proc Stat 06/24/21 02:45 BNP [NT-proBNP (BNP-Adult 18+)] Stat Complete Blood Count AUTO DIFF Stat Comprehensive Metabolic Panel Stat MAG [Magnesium] Stat Phosphorous Stat 06/24/21 03:15 Blood Culture Stat 06/24/21 03:36 CT abdomen pelvis w con Stat Discontinued Medications Doxycycline Hyclate (Doxycycline Hyclate 100 Mg Tablet) 100 mg PO NOW ONE Stop: 06/24/21 04:51 Hydromorphone HCl (Hydromorphone 0.5 Mg Inj) 0.5 mg IV NOW ONE Stop: 06/24/21 02:43 Last Admin: 06/24/21 02:49 Dose: 0.5 mg Documented by: KAIDEN Oxycodone/Acetaminophen (Oxycodone/Apap 5/325 Prepack) 1 bottle MISC SEEINSTR ONE Stop: 06/24/21 04:51 Consultations Consultation #1: call to oncall nephrology at [facility] (Arturo) to discuss use of IV contrast in this HD patient, he is quick to agree given concern for underlying infection and possible deep infection Vital Signs Vital signs: Vital Signs - 8 hr 06/24/21 02:39 06/24/21 02:48 06/24/21 02:50 Temperature 98.1 F Pulse Rate 60 62 Respiratory Rate 20 Blood Pressure 120/59 L Pulse Oximetry 80 L 94 99 06/24/21 03:00 06/24/21 03:14 06/24/21 03:30 Temperature Pulse Rate 59 L 59 L 56 L Respiratory Rate 20 19 Blood Pressure 129/85 111/63 Pulse Oximetry 99 94 97 06/24/21 04:06 06/24/21 04:30 06/24/21 04:51 Temperature Pulse Rate 58 L 55 L 58 L Respiratory Rate 19 20 Blood Pressure 121/65 Pulse Oximetry 97 97 85 L MDM - Extremity (Nontraumatic) Lab Data Result diagrams: 06/24/21 02:45 06/24/21 02:45 Labs: Lab Results 06/24/21 06/24/21 06/24/21 Range/Units 02:30 02:45 02:45 WBC 3.8 L (4.5-11.0) X10^3/uL RBC 2.79 L (4.0-5.2) X10^6/uL Hgb 8.8 L (12.0-16.0) g/dL Hct 26.4 L (36-46) % MCV 94.4 (80-100) fL MCH 31.5 (26-34) PG MCHC 33.4 (30-36) % RDW 16.0 H (11.6-14.8) % Plt Count 102 L (150-400) X10^3/uL Neut % (Auto) 57.5 (50-75) % Lymph % (Auto) 24.0 L (25-40) % Boyle % (Auto) 11.6 (3-14) % Eos % (Auto) 5.2 H (2-4) % Baso % (Auto) 1.7 (0-2) % Neut # (Auto) 2200 (9169-1771) /uL Lymph # (Auto) 900 L (2947-0397) /uL Boyle # (Auto) 400 (0-900) /uL Eos # (Auto) 200 (0-450) /uL Baso # (Auto) 100 (0-100) /uL Sodium (137-145) mmol/L Potassium (3.4-5.1) mmol/L Chloride (98-107) mmol/L Carbon Dioxide (22-32) mmol/L BUN (7-17) mg/dL Creatinine (0.52-1.04) mg/dL Estimated GFR (>60) mL/min BUN/Creatinine Ratio (6-22) Glucose (80-110) mg/dL Calcium (8.4-10.2) mg/dL Phosphorus 6.8 H (2.8-4.1) mg/dL Magnesium 2.5 H (1.6-2.3) mg/dL Total Bilirubin (0.2-1.3) mg/dL AST (14-36) IU/L ALT (<35) IU/L Alkaline Phosphatase (38-126) U/L NT-Pro-B Natriuret Pep 53575 H (<125) pg/mL Total Protein (6.3-8.2) g/dL Albumin (3.5-5.0) g/dL Globulin (1.7-4.1) g/dL Albumin/Globulin Ratio (1.0-2.8) SARS-CoV-2 (PCR) Negative (Negative) 06/24/21 Range/Units 02:45 WBC (4.5-11.0) X10^3/uL RBC (4.0-5.2) X10^6/uL Hgb (12.0-16.0) g/dL Hct (36-46) % MCV (80-100) fL MCH (26-34) PG MCHC (30-36) % RDW (11.6-14.8) % Plt Count (150-400) X10^3/uL Neut % (Auto) (50-75) % Lymph % (Auto) (25-40) % Boyle % (Auto) (3-14) % Eos % (Auto) (2-4) % Baso % (Auto) (0-2) % Neut # (Auto) (0431-0718) /uL Lymph # (Auto) (5949-9708) /uL Boyle # (Auto) (0-900) /uL Eos # (Auto) (0-450) /uL Baso # (Auto) (0-100) /uL Sodium 138 (137-145) mmol/L Potassium 4.1 (3.4-5.1) mmol/L Chloride 100 (98-107) mmol/L Carbon Dioxide 31 (22-32) mmol/L BUN 22 H (7-17) mg/dL Creatinine 4.86 H (0.52-1.04) mg/dL Estimated GFR 9.1 L (>60) mL/min BUN/Creatinine Ratio 4.5 L (6-22) Glucose 136 H (80-110) mg/dL Calcium 9.1 (8.4-10.2) mg/dL Phosphorus (2.8-4.1) mg/dL Magnesium (1.6-2.3) mg/dL Total Bilirubin 1.0 (0.2-1.3) mg/dL AST 25 (14-36) IU/L ALT 13 (<35) IU/L Alkaline Phosphatase 65 (38-126) U/L NT-Pro-B Natriuret Pep (<125) pg/mL Total Protein 7.6 (6.3-8.2) g/dL Albumin 3.8 (3.5-5.0) g/dL Globulin 3.8 (1.7-4.1) g/dL Albumin/Globulin Ratio 1.0 (1.0-2.8) SARS-CoV-2 (PCR) (Negative) Imaging Data CT scan - abdomen/pelvis: Radiologist's Impression: Bilateral pleural effusions with bibasilar consolidation. Sequela of cirrhosis. Pancreatic calcifications, sequela of chronic pancreatitis, no acute traumatic injury. Sequela of cirrhosis. No deep space infection, lytic or sclerotic osseous lesions MDM Narrative Medical decision making narrative: Patient presents with many weeks of left hip pain with hypertrophic, erythematous and exquisitely tender skin, she denies any chest pain, shortness of breath, fever, chills nor nausea or vomiting. She denies any injury. Her pain is worse when she moves. It is quite similar to when she presented a month or 2 ago and was treated with antibiotics and pain medications. Her exam and symptoms are largely otherwise at baseline. There is no radiographic evidence of abscess, deep space infection, osteomyelitis. She feels a bit fatigued that repeatedly denies any shortness of breath her significant departure from her baseline. Discharge Plan Departure Patient Disposition: Home Clinical Impression: Chronic kidney disease, Cellulitis Instructions: DI for Cellulitis -- Adult Activity Restrictions/Additional Instructions: *You have been diagnosed with [left hip pain likely due to infection. Otherwise your history, physical exam, labs and imaging are reassuring. There is no evidence of a need for emergent dialysis, imaging suggest there is no deep abscess, deep space infection or bony involvement. *What to do: *Please continue to take your regular medications as directed. [ x] New medication prescriptions sent to your pharmacy: [[facility] ] [ ] New medication written as a paper prescription [ ] No new medications given *Please touch base with your kidney doctor today to let them know you were in the Emergency Department *Return to Emergency Department if you should have any new, worsening or concerning symptoms, such as [fever greater than 101 F, shaking chills, worsening pain, persistent vomiting, shortness of breath or other bothersome symptoms] Prescriptions: New doxycycline hyclate 100 mg tablet 100 mg PO BID Qty: 20 0RF oxycodone 5 mg tablet 5 mg PO Q4-6H PRN (Reason: pain) Qty: 10 0RF No Action (DME) Disabled Parking Permit Qty: 1 0RF Dose Instruction: As directed Rx Instructions: As directed (DME) Glucometer Qty: 1 0RF Rx Instructions: Freestyle Raymond 14 Day glucometer to check blood sugar up to QID (DME) Glucose: Test Strips 0 .Route .MEDSUPPLY Qty: 400 3RF Dose Instruction: As directed Rx Instructions: Use to test blood sugars 3-4 times daily. (DME) Freestyle Lite Test Strips Qty: 100 3RF Rx Instructions: Use to test blood sugars 3-4x a day (DME) Micro Fine Insulin Truxton Qty: 200 3RF Rx Instructions: Inject insulin (Novolog and Levemir) once daily or as directed by physician Novolog Flexpen U-100 Insulin 100 unit/mL (3 mL) insulin pen 10 unit SUBCUT DAILY PRN (Reason: diabetes) Qty: 90 3RF labetalol 100 mg tablet 100 mg PO BID Qty: 180 3RF levetiracetam 500 mg tablet 500 mg PO DAILY Qty: 90 3RF amlodipine 5 mg tablet 5 mg PO DAILY Qty: 90 3RF Levemir FlexTouch U-100 Insuln 100 unit/mL (3 mL) insulin pen 10 unit SUBCUT QDAY Qty: 90 3RF Referrals: Tobias Chacon MD [Non-Staff] -
[2021-06-24] MEDS: OXYCODONE/APAP 5/325 PREPACK 1 BOTTLE MISC (04:56)
[2021-06-24] MEDS: DOXYCYCLINE HYCLATE 100 MG TABLET PO (04:57)
[2021-06-27 04:52] LABS: Acinetobacter baumannii Not Detected (Not Detect); E. coli Not Detected (Not Detect); Enterobacter cloacae complex Not Detected (Not Detect); Enterobacteriaceae species Not Detected (Not Detect); Enterococcus species Not Detected (Not Detect); Haemophilus influenzae Not Detected (Not Detect); Listeria monocytogenes Not Detected (Not Detect); Proteus species Not Detected (Not Detect); Serratia marcescens Not Detected (Not Detect); Staphylococcus species Not Detected (Not Detect); Streptococcus agalactiae (Gr B Not Detected (Not Detect); Streptococcus pneumonia Not Detected (Not Detect); Streptococcus pyogenes (Gr A) Not Detected (Not Detect); Streptococcus species Not Detected (Not Detect)
[2021-06-27 04:53] LABS: Candida albicans Not Detected (Not Detect); Candida glabrata Not Detected (Not Detect); Candida krusei Not Detected (Not Detect); Candida parapsilosis Not Detected (Not Detect); Candida tropicalis Not Detected (Not Detect); Neisseria meningitidis Not Detected (Not Detect); Pseudomonas aeruginosa Not Detected (Not Detect)
== END 2021-06-24 05:02 | disposition home or self-care (01) ==
PROVIDERS: Emergency Provider Emergency Medicine
DX: L03.116 Cellulitis of left lower limb (principal); E11.22 Type 2 diabetes mellitus with diabetic chronic kidney disease; N18.6 End stage renal disease; Z99.2 Dependence on renal dialysis; Z79.4 Long term (current) use of insulin; Z20.822 Contact with and (suspected) exposure to COVID-19
CPT/HCPCS: 36415; 74177; 80053; 83735; 83880; 84100; 85025; 87040; 87150; 87205; 87635; 96374; 99284; 99285; C9803; J1170; Q9967

== ENCOUNTER → 2021-06-26 10:23 | Outpatient (CLI) | payer MEDICARE, OTHER, SELFPAY ==
[2020-07-16 16:16] VITALS: RESP 24; O2SAT 96
[2021-06-26 10:46] LABS: COVID19 -Nasal RAPID Negative (Negative)
== END ==
PROVIDERS: Visit Provider Surgery
DX: Z01.812 Encounter for preprocedural laboratory examination (principal); Z20.822 Contact with and (suspected) exposure to COVID-19; K70.30 Alcoholic cirrhosis of liver without ascites; N18.6 End stage renal disease
CPT/HCPCS: 87635; 99213

== ENCOUNTER 2021-06-28 07:59 | Day surgery (SDC) | payer MEDICARE, OTHER, SELFPAY ==
[2020-07-16 16:16] VITALS: RESP 24; O2SAT 96
[2021-06-28] VITALS (9 sets, daily range): BP systolic 97–128; BP diastolic 60–88; PULSE 82–107; RESP 12–18; TEMP 36.3–38; O2SAT 90–100; BMI 28.2
--- NOTE | 2021-06-28 | PATH_ITS ---
[facility] Accession Number: [id number] . 01 Material submitted: . PART A: duodenum - DUODENAL BIOPSIES PART B: stomach - ANTRAL BIOPSIES PART C: stomach - FUNDAL BIOPSIES PART D: colon - TRANSVERSE COLON POLYPS . 02 Diagnosis: A. Duodenum, Biopsies: Duodenal mucosa with no diagnostic abnormality. Negative for active inflammation, features of sprue, dysplasia, or malignancy. . B. Stomach, Antrum, Biopsies: Acute erosive gastritis. Negative for Helicobacter by immunohistochemistry. Negative for intestinal metaplasia. Negative for dysplasia and malignancy. . C. Stomach, Fundus Biopsies: Body type mucosa with mild chronic gastritis. Negative for Helicobacter by immunohistochemistry. Negative for intestinal metaplasia. Negative for dysplasia and malignancy. . D. Transverse Colon, Polyps, Biopsies: Tubular adenoma in two of three fragments. [facility] 07/03/2021 1446 Local . 02 Electronically signed: . Kaylin Marie MD, Pathologist NPI- [id number] . 01 Gross description: . Part A: DUODENAL BIOPSIES: Received in formalin are 2 fragment(s) of garland, soft tissue measuring 0.4 x 0.3 x 0.2 cm to 0.2 x 0.1 x 0.1 cm submitted entirely in 1 cassette(s) Part B: ANTRAL BIOPSIES: Received in formalin are 3 fragment(s) of garland, soft tissue measuring 0.2 x 0.2 x 0.1 cm to 0.1 x 0.1 x 0.1 cm submitted entirely in 1 cassette(s) Part C: FUNDAL BIOPSIES: Received in formalin is 1 fragment(s) of garland, soft tissue measuring 0.2 x 0.2 x 0.1 cm submitted entirely in 1 cassette(s) Part D: TRANSVERSE COLON POLYPS: Received in formalin are 2 fragment(s) of garland, soft tissue measuring 0.4 x 0.4 x 0.3 cm to 0.3 x 0.3 x 0.2 cm submitted entirely in 1 cassette(s) /[facility] 07/01/2021 1355 Local . 02 Microscopic: . B-C. Immunohistochemical stains were performed on blocks B and C in order to evaluate for Helicobacter organisms and are both negative. The control stain showed appropriate reactivity. . * This test was developed and its performance characteristics determined by [facility]. It has not been cleared or approved by the U.S. Food and Drug Administration. The FDA has determined that such clearance or approval is not necessary. This test is used for clinical purposes. It should not be regarded as investigational or for research. . 02 Pathologist provided ICD-10: D12.3, K28.9 . 02 CPT . 475496, 634808, 787430, 911180, G04603 Performed at: 01 [facility] [address] [address], [place], [place] [id number] MD Ld Warren MD Phone: [phone] Performed at: 02 [facility] [address] [place], [place] [id number] MD Kaylin Marie MD Phone: [phone]
[2021-06-28] MEDS: LACTATED RINGERS 1,000 ML 84 ML IV (08:48)
--- NOTE | 2021-06-28 09:31 | PM.PREOP ---
Pre-operative Note COVID-19 COVID-19 status: Negative Result date/Date tested (Pos, Neg/Pending): 06/27/21 Criteria for continued procedure: Delay expected to result in less-positive ultimate med/surg outcome Interval Note History & Physical reviewed/Exam performed by Physician: Yes Changes to H&P: No ASA Class (for procedural sedation): III
--- NOTE | 2021-06-28 09:49 | SUR.PREOP ---
chipped tooth front left.
--- NOTE | 2021-06-28 10:12 | PM.OP.EC ---
Operative Date/Time/Diagnoses Date of procedure: 06/28/21 Pre-op diagnosis: End-stage liver disease and end-stage renal failure Post-op diagnosis: same Procedure & Clinicians Study performed: EGD and colonoscopy Same procedure as scheduled: Yes Indications: Transplant clearance Surgeon: Maxime Pérez Procedure Notes SCOAP/Timeout: Performed Procedure in detail: Procedure in detail: A timeout was performed. Bite blocked was placed. Patient was positioned in a left lateral decubitus position. General endotracheal anesthesia was administered by Dr. Guardado. The endoscope was inserted through the bite block and passed through the esophagus and stomach and into the duodenum. There was inflammation and erythema in the duodenal bulb. Random biopsies were taken from the duodenal mucosa. There was erythema in the antrum and random biopsies were taken from the antrum. There were a few small, old, healing ulcers in the antrum. The scope was retroflexed and a moderately-sized hiatal hernia was visible. There was patchy erythema in the fundus and random biopsies were taken from the fundus mucosa. Scope was straightened and withdrawn. There is no evidence of esophagitis. The rest of the esophagus was normal. Findings: Erythema of the antrum and duodenum, resolving ulcers in the antrum, patchy erythema in the fundus and moderate hiatal hernia Next we repositioned the patient for a colonoscopy. A digital rectal exam was performed and was normal. The colonoscope was inserted and advanced to the cecum. The appendiceal orifice was identified and photographed. The scope was slowly withdrawn over greater than 6 minutes. There were scattered diverticula of the right and left colon. There were 2 small polyps in the transverse colon that were roughly 5 mm removed with cold forceps using the Jumbo forceps. The scope was retroflexed in the rectum and no abnormality was noted. Findings: Scattered diverticula and 2 small polyps in the transverse colon EBL: 5 mL Scope withdrawal time: 8 Post-procedure Recommendations: Will call with biopsy results Disposition: PACU
--- NOTE | 2021-06-28 11:51 | SUR.PHASEII ---
Pt instructed by RN to see primary about her left hip sore. Pt states she has fired her primary care. Pt needs to see someone regarding this hip. Pt states she did ..
== END 2021-06-28 12:06 | disposition home or self-care (01) ==
PROVIDERS: Referring Provider Surgery; Visit Provider Surgery
PROC: 0DJ08ZZ Inspection of Upper Intestinal Tract, Via Natural or Artificial Opening Endoscopic (ICD-10-PCS; CPT 43235; principal; 2021-06-28 09:15)
PROC: 0DJD8ZZ Inspection of Lower Intestinal Tract, Via Natural or Artificial Opening Endoscopic (ICD-10-PCS; CPT 45378; 2021-06-28 09:15)
DX: Z01.818 Encounter for other preprocedural examination (principal); K72.10 Chronic hepatic failure without coma; N18.6 End stage renal disease; K70.30 Alcoholic cirrhosis of liver without ascites; K44.9 Diaphragmatic hernia without obstruction or gangrene; K57.30 Diverticulosis of large intestine without perforation or abscess without bleeding; K29.50 Unspecified chronic gastritis without bleeding; D12.3 Benign neoplasm of transverse colon
CPT/HCPCS: 45380; 43239; J0330; J2250; J2704; J3010

== ENCOUNTER → 2021-07-10 10:45 | Outpatient (CLI) | payer MEDICARE, OTHER, SELFPAY ==
[2020-07-16 16:16] VITALS: RESP 24; O2SAT 96
--- NOTE | 2021-07-10 10:48 | DI.MG.S_ITS ---
BILATERAL DIGITAL SCREENING MAMMOGRAM 3D/2D WITH CAD: 07/10/2021 CLINICAL: Routine screening. Comparison is made to exams dated: 02/26/2018 mammogram, 05/05/2013 mammogram, and 01/02/2015 mammogram - [facility]. There are scattered fibroglandular elements in both breasts. Current study was also evaluated with a Computer Aided Detection (CAD) system. Bilateral diffuse skin thickening and trabecular thickening are seen that is new when compared to the prior exam. There are benign diffuse vascular calcifications in both breasts that are increased in number. No significant masses, calcifications, or other findings are seen in either breast. IMPRESSION: BENIGN Diffuse bilateral skin and trabecular thickening. Recommend clinical correlation for causes of systemic volume overload such as congestive heart failure or renal failure. There is no mammographic evidence of malignancy. A 1 year screening mammogram is recommended. This exam was interpreted at Station ID: [id number]. NOTE: For mammograms, a report in lay terms will be sent to the patient. Approximately 15% of breast malignancies will not be visualized mammographically. In the management of a palpable breast mass, a negative mammogram must not discourage biopsy of a clinically suspicious lesion. Electronically Signed By: Larry chiang/kelly:07/10/2021 14:15:21 letter sent: Normal Exam ACR BI-RADS Category 2: Benign Finding(s) 3342F
== END ==
PROVIDERS: PCP Internal Medicine; Referring Provider Internal Medicine; Visit Provider Internal Medicine
DX: Z12.31 Encounter for screening mammogram for malignant neoplasm of breast (principal)
CPT/HCPCS: 77063; 77067

== ENCOUNTER → 2021-09-04 15:49 | Outpatient (CLI) | payer MEDICARE, OTHER, SELFPAY ==
[2020-07-16 16:16] VITALS: RESP 24; O2SAT 96
== END ==
PROVIDERS: Referring Provider Internal Medicine Nephrology; Visit Provider Family Medicine
DX: L94.2 Calcinosis cutis (principal); L97.122 Non-pressure chronic ulcer of left thigh with fat layer exposed; L97.112 Non-pressure chronic ulcer of right thigh with fat layer exposed; L08.9 Local infection of the skin and subcutaneous tissue, unspecified; E11.22 Type 2 diabetes mellitus with diabetic chronic kidney disease; I12.0 Hypertensive chronic kidney disease with stage 5 chronic kidney disease or end stage renal disease; M79.7 Fibromyalgia; Z99.2 Dependence on renal dialysis; Z79.2 Long term (current) use of antibiotics; Z79.4 Long term (current) use of insulin
CPT/HCPCS: 99204; 99214

== ENCOUNTER → 2021-09-18 13:55 | Outpatient (CLI) | payer MEDICARE, OTHER, SELFPAY ==
[2020-07-16 16:16] VITALS: RESP 24; O2SAT 96
== END ==
PROVIDERS: PCP Internal Medicine; Referring Provider Internal Medicine; Visit Provider Family Medicine
DX: L94.2 Calcinosis cutis (principal); L97.122 Non-pressure chronic ulcer of left thigh with fat layer exposed; L97.112 Non-pressure chronic ulcer of right thigh with fat layer exposed
CPT/HCPCS: 99213

== ENCOUNTER → 2021-09-30 15:23 | Outpatient (CLI) | payer MEDICARE, OTHER, SELFPAY ==
[2020-07-16 16:16] VITALS: RESP 24; O2SAT 96
== END ==
PROVIDERS: PCP Internal Medicine; Referring Provider Internal Medicine; Visit Provider Family Medicine
DX: L94.2 Calcinosis cutis (principal); L97.122 Non-pressure chronic ulcer of left thigh with fat layer exposed; L97.112 Non-pressure chronic ulcer of right thigh with fat layer exposed; L08.9 Local infection of the skin and subcutaneous tissue, unspecified; E11.22 Type 2 diabetes mellitus with diabetic chronic kidney disease; I12.0 Hypertensive chronic kidney disease with stage 5 chronic kidney disease or end stage renal disease; N18.6 End stage renal disease; M79.7 Fibromyalgia; Z99.2 Dependence on renal dialysis; Z79.2 Long term (current) use of antibiotics; Z79.4 Long term (current) use of insulin
CPT/HCPCS: 99212; 99213

== ENCOUNTER → 2021-10-21 14:09 | Outpatient (CLI) | payer MEDICARE, OTHER, SELFPAY ==
[2020-07-16 16:16] VITALS: RESP 24; O2SAT 96
== END ==
PROVIDERS: PCP Internal Medicine; Referring Provider Internal Medicine; Visit Provider Family Medicine
DX: L94.2 Calcinosis cutis (principal); L97.122 Non-pressure chronic ulcer of left thigh with fat layer exposed; L97.112 Non-pressure chronic ulcer of right thigh with fat layer exposed; R23.4 Changes in skin texture; R63.0 Anorexia; E11.22 Type 2 diabetes mellitus with diabetic chronic kidney disease; N18.6 End stage renal disease; Z99.2 Dependence on renal dialysis
CPT/HCPCS: 11042; 11045; 87070; 87075; 87077; 87186; 87205

== ENCOUNTER → 2021-11-11 13:57 | Outpatient (CLI) | payer MEDICARE, OTHER, SELFPAY ==
[2020-07-16 16:16] VITALS: RESP 24; O2SAT 96
== END ==
PROVIDERS: PCP Internal Medicine; Referring Provider Internal Medicine; Visit Provider Family Medicine
DX: L94.2 Calcinosis cutis (principal); L97.122 Non-pressure chronic ulcer of left thigh with fat layer exposed; L97.112 Non-pressure chronic ulcer of right thigh with fat layer exposed
CPT/HCPCS: 99213

== ENCOUNTER → 2021-11-18 13:22 | Outpatient (CLI) | payer MEDICARE, OTHER, SELFPAY ==
[2020-07-16 16:16] VITALS: RESP 24; O2SAT 96
== END ==
PROVIDERS: PCP Internal Medicine; Referring Provider Internal Medicine; Visit Provider Family Medicine
DX: L94.2 Calcinosis cutis (principal); L97.122 Non-pressure chronic ulcer of left thigh with fat layer exposed; L97.812 Non-pressure chronic ulcer of other part of right lower leg with fat layer exposed; M79.605 Pain in left leg; M79.604 Pain in right leg
CPT/HCPCS: 99213

== ENCOUNTER → 2021-12-17 09:30 | Outpatient (CLI) | payer MEDICARE, OTHER, SELFPAY ==
[2021-11-28 09:21] VITALS: RESP 24; O2SAT 96
[2021-12-17 11:56] LABS: COVID19 -Nasal RAPID Negative (Negative)
== END ==
PROVIDERS: PCP Internal Medicine; Visit Provider Surgery
DX: Z20.822 Contact with and (suspected) exposure to COVID-19 (principal); Z01.812 Encounter for preprocedural laboratory examination
CPT/HCPCS: 87635; C9803

== ENCOUNTER 2021-12-18 07:05 | Day surgery (SDC) | payer MEDICARE, OTHER, SELFPAY ==
[2021-11-28 09:21] VITALS: RESP 24; O2SAT 96
[2021-12-11 09:11] VITALS: BMI 24.2
[2021-12-18] VITALS (13 sets, daily range): BP systolic 78–102; BP diastolic 54–73; PULSE 67–91; RESP 12–17; TEMP 36.2–37; O2SAT 92–99; BMI 36.6
--- NOTE | 2021-12-18 07:40 | PM.PREOP ---
Pre-operative Note COVID-19 COVID-19 status: Negative Result date/Date tested (Pos, Neg/Pending): 12/17/21 Interval Note History & Physical reviewed/Exam performed by Physician: Yes Changes to H&P: No H&P completed within 30 days and has changed as indicated here:: The HPI and physical exam from 12/02/21 is incorrect in the HPI and physical exam. The left thigh wound is larger than the right. As stated in the Assessment and plan the left wound will be debrided today. ASA Class (for procedural sedation): III
[2021-12-18] MEDS: LACTATED RINGERS 1,000 ML 42 ML IV (07:52)
--- NOTE | 2021-12-18 08:44 | SUR.OPER ---
Lateral on a hu bag, head on pillow, gel axillary roll in place, bottom leg bent with gel pad under knee to foot, upper leg straight and supported with pillows. Upper arm supported by pillows and secured over bottom arm to padded arm board. Safety belt at hip, tape over blanket lower legs.
[2021-12-18] MEDS: LIDOCAINE 1% 20 ML INJ (08:46)
[2021-12-18] MEDS: EPINEPHrine 1 MG/ML 0.2 MG INJ (08:49)
--- NOTE | 2021-12-18 08:55 | PM.OP.1 ---
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 General anesthesia was induced via LMA. The patient was then positioned in the right lateral decubitus position with a beanbag. The dressings were removed and the wounds were prepped with Betadine. Drapes were applied in the usual manner. A time-out was performed. The superior wound was crescent shaped and measured roughly 10 cm in length and 1 cm across. The inferior wound was roughly oval in shape and measured 4 cm x 2 cm. We debrided both wound beds with a moistened Ray-Julio followed by a dry Ray-Julio. The inferior wound had a very tenacious film of slough that had to be removed with sharp debridement using Metzenbaum scissors and scalpel. We also used curette to further debride the wound bed of the inferior and superior wounds. We then injected some lidocaine with epinephrine into the skin around the wounds. We then applied Adaptic gauze followed by 4x4s and paper tape. The patient was awakened brought to recovery room. EBL: 10 mL Post-operative Condition: stable Disposition: PACU
--- NOTE | 2021-12-18 09:36 | SUR.PHASEI ---
Green bruise to right hand IV site. Dried blood to bilateral lips, no active bleeding noted.
--- NOTE | 2021-12-18 10:54 | SUR.PHASEII ---
Discharge instructions reviewed with pt and she verbalized understanding.
== END 2021-12-18 11:09 | disposition home or self-care (01) ==
PROVIDERS: PCP Internal Medicine; Referring Provider Surgery; Visit Provider Surgery
PROC: (CPT 11042; principal; 2021-12-18 07:45)
DX: E83.59 Other disorders of calcium metabolism (principal); S71.102A Unspecified open wound, left thigh, initial encounter; E11.22 Type 2 diabetes mellitus with diabetic chronic kidney disease; N18.6 End stage renal disease; Z99.2 Dependence on renal dialysis; Z79.4 Long term (current) use of insulin; K74.60 Unspecified cirrhosis of liver; N25.81 Secondary hyperparathyroidism of renal origin; I27.20 Pulmonary hypertension, unspecified
CPT/HCPCS: 11042; J0171; J2405; J2704; J3010

== ENCOUNTER → 2021-12-20 12:52 | Outpatient (CLI) | payer MEDICARE, OTHER, SELFPAY ==
[2021-11-28 09:21] VITALS: RESP 24; O2SAT 96
== END ==
PROVIDERS: PCP Internal Medicine; Referring Provider Internal Medicine; Visit Provider Family Medicine
DX: L94.2 Calcinosis cutis (principal)
CPT/HCPCS: 99213

== ENCOUNTER 2021-12-31 14:59 | Emergency (ER) | payer MEDICARE, OTHER, SELFPAY ==
[2021-11-28 09:21] VITALS: RESP 24; O2SAT 96
[2021-12-31] VITALS (16 sets, daily range): BP systolic 88–151; BP diastolic 54–102; PULSE 71–113; RESP 20–24; TEMP 37.1; O2SAT 85–100; BMI 27.1
--- NOTE | 2021-12-31 17:25 | DI.RAD.S_ITS ---
PROCEDURE: XR HIP W PEL IF DONE LT 2V INDICATIONS: Wounds;?osteomyelitis TECHNIQUE: 2 views of the hip were acquired. COMPARISON: None. FINDINGS: Bones: No fractures or dislocations. No suspicious bony lesions. The visualized pelvic ring appears intact. Generalized decrease in osseous mineralization noted. Moderate bilateral acetabular joint space narrowing present. Soft tissues: Diffuse atherosclerotic vascular calcification present. No radiopaque foreign body. There is soft tissue gas in the left upper thigh laterally IMPRESSION: Soft tissue gas in the left lateral upper thigh may related to gas forming infection. Consider follow-up CT or MRI Diffuse advanced atherosclerotic vascular calcification Approved by: Jonathan Foster M.D. on 12/31/2021 at 18:09
--- NOTE | 2021-12-31 17:25 | DI.RAD.S_ITS ---
PROCEDURE: XR FEMUR LT MIN 2V INDICATIONS: Wounds;?osteomyelitis TECHNIQUE: 2 views of the femur were acquired. COMPARISON: None. FINDINGS: Bones: No fractures or dislocations. No suspicious bony lesions. Joint space narrowing noted at the knee Soft tissues: Diffuse atherosclerotic vascular calcification present. IMPRESSION: Knee joint space narrowing and diffuse atherosclerotic vascular calcification without lytic lesion. Approved by: Jonathan Foster M.D. on 12/31/2021 at 18:14
[2021-12-31 17:57] LABS: Add Manual Diff / Slide Review NO; Basophils Absolute Auto 0 /uL (0-100); Basophils Percent Auto 0.5 % (0-2); Eosinophils Absolute Auto 0 /uL (0-450); Eosinophils Percent Auto 0.4 % (2-4); Hematocrit 28.3 % (36-46); Hemoglobin 9.8 g/dL (12.0-16.0); Lymphocytes Absolute Auto 1000 /uL (1100-4500); Lymphocytes Percent Auto 16.4 % (25-40); Mean Corpuscular HGB Conc 34.6 % (30-36); Mean Corpuscular Hemoglobin 29.7 PG (26-34); Mean Corpuscular Volume 85.8 fL (80-100); Monocytes Absolute Auto 400 /uL (0-900); Monocytes Percent Auto 6.6 % (3-14); Neutrophils Absolute Auto 4800 /uL (1500-7000); Neutrophils Percent Auto 76.1 % (50-75); Platelet Count 94 X10^3/uL (150-400); White Blood Cell Count 6.3 X10^3/uL (4.5-11.0)
[2021-12-31 18:07] LABS: Lactate (Lactic Acid) 3.7 mmol/L (0.7-2.1)
[2021-12-31] MEDS: MORPHINE 2 MG/ML INJ 4 MG IV (18:07)
[2021-12-31 18:08] LABS: Alanine Aminotransferase 15 IU/L (<35); Albumin 3.4 g/dL (3.5-5.0); Albumin Globulin Ratio 0.9 (1.0-2.8); Alkaline Phosphatase 111 U/L (38-126); Aspartate Aminotransferase 27 IU/L (14-36); BUN Creatinine Ratio 5.6 (6-22); Bilirubin Total 0.8 mg/dL (0.2-1.3); Blood Urea Nitrogen 12 mg/dL (7-17); Calcium 7.9 mg/dL (8.4-10.2); Carbon Dioxide 27 mmol/L (22-32); Chloride 94 mmol/L (98-107); Estimated Glomerular Filt Rate 26 mL/min (>60); Globulin 3.8 g/dL (1.7-4.1); Glucose 167 mg/dL (80-110); HEMOLYSIS 31 (0-50); Magnesium 1.9 mg/dL (1.6-2.3); Potassium 3.7 mmol/L (3.4-5.1); Sodium 136 mmol/L (137-145); Total Protein 7.2 g/dL (6.3-8.2)
--- NOTE | 2021-12-31 18:14 | ED.SKABFB ---
HPI - Skin/Abscess/Foreign Bdy <Domi Dyer PA-C - Last Filed: 12/31/21 19:54> General Chief complaint: Skin/Abscess/Foreign Body Stated complaint: Extreme pain, calciphylaxis Time Seen by Provider: 12/31/21 16:17 History of Present Illness HPI narrative: 61-year-old female with past medical history alcoholic cirrhosis of the liver with ascites, end-stage renal disease, on dialysis Thursday, calciphylaxis, pulmonary hypertension, stage IV sacral decubitus ulcer, type 2 diabetes presents to the ED with uncontrolled pain at the site of the ulcers. Patient is on a pain management contract with Dr. Jones, who is her PCP. Patient states that her pain is not being sufficiently controlled currently. Patient states that she has wound care nurses that come address her wounds every few days. The last time wound care dressed her wounds was about 4-5 days ago. Patient denies fever, chills, chest pain, shortness of breath, nausea, vomiting, syncope. Patient has been diagnosed with calciphylaxis, has had her left upper leg wound debrided surgically by Dr. Pérez for it. Related Data Home Medications Medication Instructions Recorded Confirmed lanthanum 500 mg chewable tablet 500 mg PO PRN hyperphosphatemia 09/06/21 12/18/21 labetalol 100 mg tablet 100 mg PO DAILY 01/01/22 01/01/22 levetiracetam 500 mg tablet 500 mg PO DAILY 01/01/22 01/01/22 (Keppra) [id number] 1 cap PO QAC 01/01/22 01/01/22 36,000-114,000-180,000 unit capsule,delay rel (Creon) oxycodone 5 mg tablet 5 mg PO Q4HR PRN Severe Pain 01/01/22 01/01/22 (Scale Score 7-10) Previous Rx's Medication Instructions Recorded Disabled Parking Permit #1 ea 04/06/18 Micro Fine Insulin [place] #200 ea 10/01/20 amlodipine 5 mg tablet 5 mg PO DAILY #90 tabs 11/13/20 insulin detemir U-100 100 unit/mL 10 unit (0.1 mL) SUBCUT QDAY #90 mL 11/14/20 (3 mL) subcutaneous pen (Levemir FlexTouch U-100 Insulin) insulin aspart U-100 100 unit/mL 10 unit (0.1 mL) SUBCUT DAILY PRN 09/06/21 (3 mL) subcutaneous pen (Novolog diabetes #90 mL Flexpen U-100 Insulin aspart) ondansetron 4 mg disintegrating 4 mg PO Q8H PRN nausea and 09/06/21 tablet vomiting #12 tabs amoxicillin 500 mg-potassium 1 tab PO Q12H #24 tabs 01/02/22 clavulanate 125 mg tablet (Augmentin) hydrocodone 5 mg-acetaminophen 325 1 tab PO Q8-10H PRN pain #15 tabs 01/02/22 mg tablet ondansetron 4 mg disintegrating 4 mg PO Q8H PRN nausea and 01/02/22 tablet vomiting #15 tabs Allergies Allergy/AdvReac Type Severity Reaction Status Date / Time peanut [PEANUT] Allergy Mild Face Verified 12/18/21 07:29 swelling latex [LATEX] Allergy Unknown Verified 12/18/21 07:29 metformin [METFORMIN] Allergy Unknown Jaundice Verified 12/18/21 07:29 monosodium glutamate Allergy Unknown Verified 12/18/21 07:29 [MONOSODIUM GLUTAMATE] spironolactone Allergy Unknown Verified 12/18/21 07:29 [SPIRONOLACTONE] aspirin [ASPIRIN] AdvReac Unknown Vomiting Verified 12/18/21 07:29 esomeprazole [ESOMEPRAZOLE] AdvReac Unknown Nausea Verified 12/18/21 07:29 fluoxetine [FLUOXETINE] AdvReac Unknown Became Verified 12/18/21 07:29 violent gabapentin [GABAPENTIN] AdvReac Unknown N/V Verified 12/18/21 07:29 prednisone [PREDNISONE] AdvReac Unknown Hives/itchi Verified 12/18/21 07:29 ng Sulfa (Sulfonamide AdvReac Unknown Rash/pain Verified 12/18/21 07:29 Antibiotics) [SULFA (SULFONAMIDE ANTIBIOTICS)] Review of Systems <Domi Dyer PA-C - Last Filed: 12/31/21 19:54> Review of Systems ROS Unobtainable: All systems reviewed & are unremarkable except as noted in HPI and below Constitutional Constitutional: Denies chills, Denies fatigue, Denies fever(s), Denies frequent falls, Denies lethargy and Denies weakness Eyes Eyes: Denies change in vision, Denies eye discharge, Denies irritation and Denies loss of vision ENT Ears, Nose, Mouth, and Throat: Denies change in voice, Denies dizziness, Denies neck pain, Denies sore throat and Denies throat swelling Cardiovascular Cardiovascular: Denies chest pain, Denies irregular heart rhythm, Denies lightheadedness, Denies palpitations, Denies dyspnea, Denies dyspnea on exertion and Denies orthopnea Respiratory Respiratory: Denies cough, Denies dyspnea, Denies dyspnea on exertion and Denies wheezing Gastrointestinal Gastrointestinal: Denies abdominal pain, Denies change in bowel habits, Denies diarrhea, Denies nausea and Denies vomiting Genitourinary Genitourinary: Denies hematuria, Denies flank pain, Denies urinary incontinence and Denies urinary urgency Musculoskeletal Musculoskeletal: Denies back pain, Denies muscle weakness, Denies neck pain, Denies numbness and Denies tingling Integumentary/Breasts Skin/Breast: Denies pruritus, Denies erythema, Denies rash and Denies wounds Comments: Pain from the multiple decubitus ulcers. Neurologic Neurologic: Denies behavioral changes, Denies confusion, Denies dizziness, Denies frequent falls, Denies loss of vision, Denies numbness, Denies tingling and Denies weakness Psychiatric Psychiatric: Denies anxiety, Denies behavioral changes, Denies confusion, Denies depression, Denies homicidal ideation and Denies suicidal ideation Endocrine Endocrine: Denies fatigue, Denies flushing and Denies palpitations Hematologic/Lymphatic Hematologic/Lymphatic: Denies easy bruising Allergic/Immunologic Allergic/Immunologic: Denies urticaria, Denies throat swelling and Denies wheezing Patient History <Domi Dyer PA-C - Last Filed: 12/31/21 19:54> Medical History Alcoholism Allergic rhinitis Anemia (Unknown) Cataracts, bilateral (~01/2017) Chronic, continuous use of opioids Cirrhosis (Unknown) CKD (chronic kidney disease) Colon polyps (Unknown) Depression Diabetes (2004) Dialysis patient Eczema ESRD (end stage renal disease) (~03/2019) Essential hypertension Fibromyalgia (1994) Foot pain GERD (gastroesophageal reflux disease) Gout History of hemodialysis (~2018) Hypertension Kidney disease (~2018) Kidney failure (~2019) Liver disease (Unknown) Migraines Obstructive sleep apnea, adult Osteoarthritis (Unknown) Pancreatitis (Unknown) Pulmonary hypertension Recurrent sinusitis Rosacea Sacral decubitus ulcer, stage IV Seizure disorder Seizures (~2007) Shoulder pain Stroke Thrombocytopenia Type 2 diabetes mellitus with chronic kidney disease Urinary incontinence Surgical History Anesthesia Fistula History of cataract removal with insertion of prosthetic lens History of oral surgery (~2021) History of third molar tooth extraction (1976) Hx of appendectomy Hx of cholecystectomy Hx of colonoscopy with polypectomy Status post colonoscopy Family History Father Age: 95 Hypertension Arthritis Obesity Mother Hypertension Diabetes mellitus Arthritis Loud snoring Sleep apnea Insomnia Obesity Heart disease Sister Age: 66 Osteoporosis Sister Age: 64 Bipolar 1 disorder Other Obstructive sleep apnea, adult Social History household members: spouse Smoking Status: Former smoker alcohol intake: former Smoking Status: Former smoker alcohol intake frequency: other Substance Use Type: marijuana Exam <Domi Dyer PA-C - Last Filed: 12/31/21 19:54> Narrative Exam Narrative: Const General:?cooperative, healthy appearing and comfortable [facility] Head:?normal to inspection Ears:?hearing grossly normal bilaterally Nose:?external nose normal Face and sinus:?normal facial exam and sinuses nontender Mouth:?oral mucosae normal Throat:?posterior oropharynx normal Eyes General:?appearance normal, both eyes and all related structures Neck Neck:?normal visual inspection and no lymphadenopathy noted Resp Effort & Inspection:?normal respiratory effort Auscultation:?clear to auscultation bilaterally Cardio Rate:?regular rate Rhythm:?regular rhythm Integumentary Multiple decubitus leg ulcers right of the sacrum, left and right lateral femurs/hip. There is a ulcer on the left upper lateral thigh which appears infected. There is a ulcer on the right lower back that also appears infected, foul-smelling, this is also the worst appearing ulcer. There is an ulcer on the right lateral upper thigh, also infected. There is a small sacral decubitus ulcer. Neuro General:?patient alert, patient awake and patient oriented x3 Initial Vital Signs Initial Vital Signs: Vital Signs Temperature 98.8 F 12/31/21 15:11 Pulse Rate 75 12/31/21 15:11 Respiratory Rate 24 12/31/21 15:11 Blood Pressure 109/72 12/31/21 15:11 Pulse Oximetry 97 12/31/21 15:11 Oxygen Delivery Method 12/31/21 15:11 <Rosey Lares MD - Last Filed: 01/10/22 18:04> Initial Vital Signs Initial Vital Signs: Vital Signs Temperature 98.8 F 12/31/21 15:11 Pulse Rate 75 12/31/21 15:11 Respiratory Rate 24 12/31/21 15:11 Blood Pressure 109/72 12/31/21 15:11 Pulse Oximetry 97 12/31/21 15:11 Oxygen Delivery Method 12/31/21 15:11 <Katie Costello DO - Last Filed: 01/01/22 18:55> Initial Vital Signs Initial Vital Signs: Vital Signs Temperature 98.8 F 12/31/21 15:11 Pulse Rate 75 12/31/21 15:11 Respiratory Rate 24 12/31/21 15:11 Blood Pressure 109/72 12/31/21 15:11 Pulse Oximetry 97 12/31/21 15:11 Oxygen Delivery Method 12/31/21 15:11 <Julio William DO - Last Filed: 01/02/22 23:50> Initial Vital Signs Initial Vital Signs: Vital Signs Temperature 98.8 F 12/31/21 15:11 Pulse Rate 75 12/31/21 15:11 Respiratory Rate 24 12/31/21 15:11 Blood Pressure 109/72 12/31/21 15:11 Pulse Oximetry 97 12/31/21 15:11 Oxygen Delivery Method 12/31/21 15:11 <Salo Pino MD - Last Filed: 01/02/22 18:19> Initial Vital Signs Initial Vital Signs: Vital Signs Temperature 98.8 F 12/31/21 15:11 Pulse Rate 75 12/31/21 15:11 Respiratory Rate 24 12/31/21 15:11 Blood Pressure 109/72 12/31/21 15:11 Pulse Oximetry 97 12/31/21 15:11 Oxygen Delivery Method 12/31/21 15:11 Course <Domi Dyer PA-C - Last Filed: 12/31/21 19:54> Orders Ordered: Discontinued Medications Hydrocodone Bitart/Acetaminophen (Hydrocodone/Acet 5/325 Tablet) 1 tab PO NOW ONE Stop: 01/02/22 10:08 Last Admin: 01/02/22 11:20 Dose: Not Given Documented By: AT Amlodipine Besylate (Amlodipine 5 Mg Tablet) 5 mg PO DAILY [facility] Last Admin: 01/02/22 10:24 Dose: 5 mg Documented By: ESTHER Lipase/Protease/Amylase (Lipase/Protease/Amylase 09/11/23 Cap) 1 cap PO TIDWM [facility] Last Admin: 01/02/22 10:39 Dose: 1 cap Documented By: ESTHER Diphtheria/Tetanus/Acell Pertussis (Diph,Pertuss(Acell),Tet Vac/Pf 0.5 Ml Syringe) 0.5 ml IM .ONCE ONE Stop: 12/31/21 19:38 Last Admin: 12/31/21 21:25 Dose: Not Given Documented By: ADRIEN Hydromorphone HCl (Hydromorphone 0.5 Mg Inj) 1 mg IV Q15MIN PRN PRN Reason: Pain, Last Admin: 01/02/22 10:35 Dose: 1 mg Documented By: Admin: 12/31/21 22:56 Dose: 0.5 mg Documented By: Admin: 12/31/21 20:41 Dose: 1 mg Documented By: Admin: 12/31/21 20:10 Dose: 1 mg Documented By: HAILEY Hydromorphone HCl (Hydromorphone 0.5 Mg Inj) 0.5 mg IV Q15MIN PRN PRN Reason: Pain, Last Admin: 01/02/22 02:54 Dose: 0.5 mg Documented By: Admin: 01/01/22 01:02 Dose: 0.5 mg Documented By: HAILEY Hydromorphone HCl (Hydromorphone 0.5 Mg Inj) 0.5 mg IV NOW ONE Stop: 01/01/22 11:27 Last Admin: 01/01/22 12:15 Dose: 0.5 mg Documented By: RB Vancomycin HCl (Vancomycin) 750 mg in 150 mls @ 150 mls/hr IV NOW ONE Stop: 12/31/21 20:40 Last Infusion: 12/31/21 22:34 Dose: 0 mls/hr Documented By: Admin: 12/31/21 21:24 Dose: 150 mls/hr Documented By: ADRIEN Piperacillin Sod/Tazobactam (Sod 4.5 gm/ Sodium Chloride) 100 mls @ 200 mls/hr IV NOW ONE Stop: 12/31/21 19:42 Last Infusion: 12/31/21 20:45 Dose: 0 mls/hr Documented By: Admin: 12/31/21 20:10 Dose: 200 mls/hr Documented By: HAILEY Sodium Chloride (Normal Saline 0.9%) 500 mls @ 1,000 mls/hr IV BOLUS ONE Stop: 12/31/21 23:17 Last Infusion: 01/01/22 01:00 Dose: 0 mls/hr Documented By: Admin: 12/31/21 22:56 Dose: 1,000 mls/hr Documented By: HAILEY Piperacillin Sod/Tazobactam (Sod 3.375 gm/ Sodium Chloride) 100 mls @ 25 mls/hr IV Q8H [facility] Last Admin: 01/02/22 11:57 Dose: Not Given Documented By: Infusion: 01/02/22 07:15 Dose: 0 mls/hr Documented By: Admin: 01/02/22 02:56 Dose: 25 mls/hr Documented By: Infusion: 01/01/22 23:33 Dose: 0 mls/hr Documented By: Admin: 01/01/22 19:07 Dose: 25 mls/hr Documented By: Infusion: 01/01/22 18:11 Dose: 0 mls/hr Documented By: Admin: 01/01/22 12:14 Dose: 25 mls/hr Documented By: Infusion: 01/01/22 07:26 Dose: 0 mls/hr Documented By: Admin: 01/01/22 03:11 Dose: 25 mls/hr Documented By: HAILEY Labetalol HCl (Labetalol 100 Mg Tablet) 100 mg PO DAILY [facility] Last Admin: 01/02/22 10:37 Dose: 100 mg Documented By: ESTHER Levetiracetam (Levetiracetam 250 Mg Tablet) 500 mg PO DAILY [facility] Last Admin: 01/02/22 10:23 Dose: 500 mg Documented By: ESTHER Levetiracetam (Levetiracetam 250 Mg Tablet) 500 mg PO NOW ONE Stop: 01/01/22 18:50 Last Admin: 01/01/22 19:20 Dose: 500 mg Documented By: BOLIVAR Metoclopramide HCl (Metoclopramide 10 Mg/2 Ml Inj) 10 mg IV NOW ONE Stop: 01/01/22 05:36 Last Admin: 01/01/22 05:41 Dose: 10 mg Documented By: EB Morphine Sulfate (Morphine 2 Mg/Ml Inj) 4 mg IV NOW ONE Stop: 12/31/21 17:58 Last Admin: 12/31/21 18:07 Dose: 4 mg Documented By: RB Morphine Sulfate (Morphine 4 Mg/Ml Inj) 4 mg IV NOW ONE Stop: 12/31/21 19:32 Last Admin: 12/31/21 19:36 Dose: 4 mg Documented By: EB Ondansetron HCl (Ondansetron 4 Mg/2 Ml Inj) 4 mg IV NOW ONE Stop: 12/31/21 19:25 Last Admin: 12/31/21 19:36 Dose: 4 mg Documented By: HAILEY Ondansetron HCl (Ondansetron 4 Mg/2 Ml Inj) 4 mg IV NOW ONE Stop: 01/01/22 00:57 Last Admin: 01/01/22 01:03 Dose: 4 mg Documented By: HAILEY Ondansetron HCl (Ondansetron 4 Mg/2 Ml Inj) 4 mg IV NOW ONE Stop: 01/01/22 11:27 Last Admin: 01/01/22 12:15 Dose: 4 mg Documented By: CONRAD Ondansetron HCl (Ondansetron 4 Mg/2 Ml Inj) 4 mg IV Q6HR PRN PRN Reason: Nausea And Vomiting Last Admin: 01/02/22 10:36 Dose: 4 mg Documented By: ESTHER Ondansetron HCl (Ondansetron 4 Mg Odt) 4 mg SL NOW ONE Stop: 01/02/22 10:08 Last Admin: 01/02/22 11:20 Dose: Not Given Documented By: AT Oxycodone/Acetaminophen (Oxycodone/Acetaminophen 5/325 Tablet) 2 tab PO NOW ONE Stop: 12/31/21 22:49 Last Admin: 12/31/21 22:55 Dose: 2 tab Documented By: EB Vital Signs Vital signs: Vital Signs - 8 hr 01/02/22 10:37 01/02/22 10:37 01/02/22 10:39 Pulse Rate 95 H 83 Blood Pressure 117/82 133/67 Pulse Oximetry 99 Oxygen Delivery Method 01/02/22 10:39 01/02/22 11:00 01/02/22 11:30 Pulse Rate 108 H 116 H 81 Blood Pressure Pulse Oximetry 97 99 96 Oxygen Delivery Method Room Air Room Air 01/02/22 12:00 01/02/22 12:30 01/02/22 12:30 Pulse Rate 72 81 Blood Pressure 113/67 Pulse Oximetry 93 97 Oxygen Delivery Method <Rosey Lares MD - Last Filed: 01/10/22 18:04> Orders Ordered: Discontinued Medications Hydrocodone Bitart/Acetaminophen (Hydrocodone/Acet 5/325 Tablet) 1 tab PO NOW ONE Stop: 01/02/22 10:08 Last Admin: 01/02/22 11:20 Dose: Not Given Documented By: AT Amlodipine Besylate (Amlodipine 5 Mg Tablet) 5 mg PO DAILY [facility] Last Admin: 01/02/22 10:24 Dose: 5 mg Documented By: ESTHER Lipase/Protease/Amylase (Lipase/Protease/Amylase 09/11/23 Cap) 1 cap PO TIDWM [facility] Last Admin: 01/02/22 10:39 Dose: 1 cap Documented By: ESTHER Diphtheria/Tetanus/Acell Pertussis (Diph,Pertuss(Acell),Tet Vac/Pf 0.5 Ml Syringe) 0.5 ml IM .ONCE ONE Stop: 12/31/21 19:38 Last Admin: 12/31/21 21:25 Dose: Not Given Documented By: ADRIEN Hydromorphone HCl (Hydromorphone 0.5 Mg Inj) 1 mg IV Q15MIN PRN PRN Reason: Pain, Last Admin: 01/02/22 10:35 Dose: 1 mg Documented By: Admin: 12/31/21 22:56 Dose: 0.5 mg Documented By: Admin: 12/31/21 20:41 Dose: 1 mg Documented By: Admin: 12/31/21 20:10 Dose: 1 mg Documented By: HAILEY Hydromorphone HCl (Hydromorphone 0.5 Mg Inj) 0.5 mg IV Q15MIN PRN PRN Reason: Pain, Last Admin: 01/02/22 02:54 Dose: 0.5 mg Documented By: Admin: 01/01/22 01:02 Dose: 0.5 mg Documented By: EB Hydromorphone HCl (Hydromorphone 0.5 Mg Inj) 0.5 mg IV NOW ONE Stop: 01/01/22 11:27 Last Admin: 01/01/22 12:15 Dose: 0.5 mg Documented By: RB Vancomycin HCl (Vancomycin) 750 mg in 150 mls @ 150 mls/hr IV NOW ONE Stop: 12/31/21 20:40 Last Infusion: 12/31/21 22:34 Dose: 0 mls/hr Documented By: Admin: 12/31/21 21:24 Dose: 150 mls/hr Documented By: AMU Piperacillin Sod/Tazobactam (Sod 4.5 gm/ Sodium Chloride) 100 mls @ 200 mls/hr IV NOW ONE Stop: 12/31/21 19:42 Last Infusion: 12/31/21 20:45 Dose: 0 mls/hr Documented By: Admin: 12/31/21 20:10 Dose: 200 mls/hr Documented By: HAILEY Sodium Chloride (Normal Saline 0.9%) 500 mls @ 1,000 mls/hr IV BOLUS ONE Stop: 12/31/21 23:17 Last Infusion: 01/01/22 01:00 Dose: 0 mls/hr Documented By: Admin: 12/31/21 22:56 Dose: 1,000 mls/hr Documented By: EB Piperacillin Sod/Tazobactam (Sod 3.375 gm/ Sodium Chloride) 100 mls @ 25 mls/hr IV Q8H [facility] Last Admin: 01/02/22 11:57 Dose: Not Given Documented By: Infusion: 01/02/22 07:15 Dose: 0 mls/hr Documented By: Admin: 01/02/22 02:56 Dose: 25 mls/hr Documented By: DKNirmala Infusion: 01/01/22 23:33 Dose: 0 mls/hr Documented By: Admin: 01/01/22 19:07 Dose: 25 mls/hr Documented By: Infusion: 01/01/22 18:11 Dose: 0 mls/hr Documented By: Admin: 01/01/22 12:14 Dose: 25 mls/hr Documented By: Infusion: 01/01/22 07:26 Dose: 0 mls/hr Documented By: Admin: 01/01/22 03:11 Dose: 25 mls/hr Documented By: HAILEY Labetalol HCl (Labetalol 100 Mg Tablet) 100 mg PO DAILY [facility] Last Admin: 01/02/22 10:37 Dose: 100 mg Documented By: ESTHER Levetiracetam (Levetiracetam 250 Mg Tablet) 500 mg PO DAILY [facility] Last Admin: 01/02/22 10:23 Dose: 500 mg Documented By: ESTHER Levetiracetam (Levetiracetam 250 Mg Tablet) 500 mg PO NOW ONE Stop: 01/01/22 18:50 Last Admin: 01/01/22 19:20 Dose: 500 mg Documented By: BOLIVAR Metoclopramide HCl (Metoclopramide 10 Mg/2 Ml Inj) 10 mg IV NOW ONE Stop: 01/01/22 05:36 Last Admin: 01/01/22 05:41 Dose: 10 mg Documented By: HAILEY Morphine Sulfate (Morphine 2 Mg/Ml Inj) 4 mg IV NOW ONE Stop: 12/31/21 17:58 Last Admin: 12/31/21 18:07 Dose: 4 mg Documented By: CONRAD Morphine Sulfate (Morphine 4 Mg/Ml Inj) 4 mg IV NOW ONE Stop: 12/31/21 19:32 Last Admin: 12/31/21 19:36 Dose: 4 mg Documented By: HAILEY Ondansetron HCl (Ondansetron 4 Mg/2 Ml Inj) 4 mg IV NOW ONE Stop: 12/31/21 19:25 Last Admin: 12/31/21 19:36 Dose: 4 mg Documented By: HAILEY Ondansetron HCl (Ondansetron 4 Mg/2 Ml Inj) 4 mg IV NOW ONE Stop: 01/01/22 00:57 Last Admin: 01/01/22 01:03 Dose: 4 mg Documented By: HAILEY Ondansetron HCl (Ondansetron 4 Mg/2 Ml Inj) 4 mg IV NOW ONE Stop: 01/01/22 11:27 Last Admin: 01/01/22 12:15 Dose: 4 mg Documented By: CONRAD Ondansetron HCl (Ondansetron 4 Mg/2 Ml Inj) 4 mg IV Q6HR PRN PRN Reason: Nausea And Vomiting Last Admin: 01/02/22 10:36 Dose: 4 mg Documented By: ESTHER Ondansetron HCl (Ondansetron 4 Mg Odt) 4 mg SL NOW ONE Stop: 01/02/22 10:08 Last Admin: 01/02/22 11:20 Dose: Not Given Documented By: AT Oxycodone/Acetaminophen (Oxycodone/Acetaminophen 5/325 Tablet) 2 tab PO NOW ONE Stop: 12/31/21 22:49 Last Admin: 12/31/21 22:55 Dose: 2 tab Documented By: EB Vital Signs Vital signs: Vital Signs - 8 hr 01/02/22 10:37 01/02/22 10:37 01/02/22 10:39 Pulse Rate 95 H 83 Blood Pressure 117/82 133/67 Pulse Oximetry 99 Oxygen Delivery Method 01/02/22 10:39 01/02/22 11:00 01/02/22 11:30 Pulse Rate 108 H 116 H 81 Blood Pressure Pulse Oximetry 97 99 96 Oxygen Delivery Method Room Air Room Air 01/02/22 12:00 01/02/22 12:30 01/02/22 12:30 Pulse Rate 72 81 Blood Pressure 113/67 Pulse Oximetry 93 97 Oxygen Delivery Method <Katie Costello DO - Last Filed: 01/01/22 18:55> Orders Ordered: Discontinued Medications Hydrocodone Bitart/Acetaminophen (Hydrocodone/Acet 5/325 Tablet) 1 tab PO NOW ONE Stop: 01/02/22 10:08 Last Admin: 01/02/22 11:20 Dose: Not Given Documented By: AT Amlodipine Besylate (Amlodipine 5 Mg Tablet) 5 mg PO DAILY [facility] Last Admin: 01/02/22 10:24 Dose: 5 mg Documented By: ESTHER Lipase/Protease/Amylase (Lipase/Protease/Amylase 09/11/23 Cap) 1 cap PO TIDWM [facility] Last Admin: 01/02/22 10:39 Dose: 1 cap Documented By: ESTHER Diphtheria/Tetanus/Acell Pertussis (Diph,Pertuss(Acell),Tet Vac/Pf 0.5 Ml Syringe) 0.5 ml IM .ONCE ONE Stop: 12/31/21 19:38 Last Admin: 12/31/21 21:25 Dose: Not Given Documented By: AMU Hydromorphone HCl (Hydromorphone 0.5 Mg Inj) 1 mg IV Q15MIN PRN PRN Reason: Pain, Last Admin: 01/02/22 10:35 Dose: 1 mg Documented By: Admin: 12/31/21 22:56 Dose: 0.5 mg Documented By: Admin: 12/31/21 20:41 Dose: 1 mg Documented By: Admin: 12/31/21 20:10 Dose: 1 mg Documented By: HAILEY Hydromorphone HCl (Hydromorphone 0.5 Mg Inj) 0.5 mg IV Q15MIN PRN PRN Reason: Pain, Last Admin: 01/02/22 02:54 Dose: 0.5 mg Documented By: Admin: 01/01/22 01:02 Dose: 0.5 mg Documented By: HAILEY Hydromorphone HCl (Hydromorphone 0.5 Mg Inj) 0.5 mg IV NOW ONE Stop: 01/01/22 11:27 Last Admin: 01/01/22 12:15 Dose: 0.5 mg Documented By: CONRAD Vancomycin HCl (Vancomycin) 750 mg in 150 mls @ 150 mls/hr IV NOW ONE Stop: 12/31/21 20:40 Last Infusion: 12/31/21 22:34 Dose: 0 mls/hr Documented By: Admin: 12/31/21 21:24 Dose: 150 mls/hr Documented By: ADRIEN Piperacillin Sod/Tazobactam (Sod 4.5 gm/ Sodium Chloride) 100 mls @ 200 mls/hr IV NOW ONE Stop: 12/31/21 19:42 Last Infusion: 12/31/21 20:45 Dose: 0 mls/hr Documented By: Admin: 12/31/21 20:10 Dose: 200 mls/hr Documented By: HAILEY Sodium Chloride (Normal Saline 0.9%) 500 mls @ 1,000 mls/hr IV BOLUS ONE Stop: 12/31/21 23:17 Last Infusion: 01/01/22 01:00 Dose: 0 mls/hr Documented By: Admin: 12/31/21 22:56 Dose: 1,000 mls/hr Documented By: HAILEY Piperacillin Sod/Tazobactam (Sod 3.375 gm/ Sodium Chloride) 100 mls @ 25 mls/hr IV Q8H [facility] Last Admin: 01/02/22 11:57 Dose: Not Given Documented By: Infusion: 01/02/22 07:15 Dose: 0 mls/hr Documented By: Admin: 01/02/22 02:56 Dose: 25 mls/hr Documented By: Infusion: 01/01/22 23:33 Dose: 0 mls/hr Documented By: Admin: 01/01/22 19:07 Dose: 25 mls/hr Documented By: Infusion: 01/01/22 18:11 Dose: 0 mls/hr Documented By: Admin: 01/01/22 12:14 Dose: 25 mls/hr Documented By: Infusion: 01/01/22 07:26 Dose: 0 mls/hr Documented By: Admin: 01/01/22 03:11 Dose: 25 mls/hr Documented By: HAILEY Labetalol HCl (Labetalol 100 Mg Tablet) 100 mg PO DAILY [facility] Last Admin: 01/02/22 10:37 Dose: 100 mg Documented By: ESTHER Levetiracetam (Levetiracetam 250 Mg Tablet) 500 mg PO DAILY [facility] Last Admin: 01/02/22 10:23 Dose: 500 mg Documented By: ESTHER Levetiracetam (Levetiracetam 250 Mg Tablet) 500 mg PO NOW ONE Stop: 01/01/22 18:50 Last Admin: 01/01/22 19:20 Dose: 500 mg Documented By: BOLIVAR Metoclopramide HCl (Metoclopramide 10 Mg/2 Ml Inj) 10 mg IV NOW ONE Stop: 01/01/22 05:36 Last Admin: 01/01/22 05:41 Dose: 10 mg Documented By: HAILEY Morphine Sulfate (Morphine 2 Mg/Ml Inj) 4 mg IV NOW ONE Stop: 12/31/21 17:58 Last Admin: 12/31/21 18:07 Dose: 4 mg Documented By: CONRAD Morphine Sulfate (Morphine 4 Mg/Ml Inj) 4 mg IV NOW ONE Stop: 12/31/21 19:32 Last Admin: 12/31/21 19:36 Dose: 4 mg Documented By: HAILEY Ondansetron HCl (Ondansetron 4 Mg/2 Ml Inj) 4 mg IV NOW ONE Stop: 12/31/21 19:25 Last Admin: 12/31/21 19:36 Dose: 4 mg Documented By: HAILEY Ondansetron HCl (Ondansetron 4 Mg/2 Ml Inj) 4 mg IV NOW ONE Stop: 01/01/22 00:57 Last Admin: 01/01/22 01:03 Dose: 4 mg Documented By: HAILEY Ondansetron HCl (Ondansetron 4 Mg/2 Ml Inj) 4 mg IV NOW ONE Stop: 01/01/22 11:27 Last Admin: 01/01/22 12:15 Dose: 4 mg Documented By: RB Ondansetron HCl (Ondansetron 4 Mg/2 Ml Inj) 4 mg IV Q6HR PRN PRN Reason: Nausea And Vomiting Last Admin: 01/02/22 10:36 Dose: 4 mg Documented By: ESTHER Ondansetron HCl (Ondansetron 4 Mg Odt) 4 mg SL NOW ONE Stop: 01/02/22 10:08 Last Admin: 01/02/22 11:20 Dose: Not Given Documented By: AT Oxycodone/Acetaminophen (Oxycodone/Acetaminophen 5/325 Tablet) 2 tab PO NOW ONE Stop: 12/31/21 22:49 Last Admin: 12/31/21 22:55 Dose: 2 tab Documented By: EB Vital Signs Vital signs: Vital Signs - 8 hr 01/02/22 10:37 01/02/22 10:37 01/02/22 10:39 Pulse Rate 95 H 83 Blood Pressure 117/82 133/67 Pulse Oximetry 99 Oxygen Delivery Method 01/02/22 10:39 01/02/22 11:00 01/02/22 11:30 Pulse Rate 108 H 116 H 81 Blood Pressure Pulse Oximetry 97 99 96 Oxygen Delivery Method Room Air Room Air 01/02/22 12:00 01/02/22 12:30 01/02/22 12:30 Pulse Rate 72 81 Blood Pressure 113/67 Pulse Oximetry 93 97 Oxygen Delivery Method <Julio William DO - Last Filed: 01/02/22 23:50> Orders Ordered: Discontinued Medications Hydrocodone Bitart/Acetaminophen (Hydrocodone/Acet 5/325 Tablet) 1 tab PO NOW ONE Stop: 01/02/22 10:08 Last Admin: 01/02/22 11:20 Dose: Not Given Documented By: AT Amlodipine Besylate (Amlodipine 5 Mg Tablet) 5 mg PO DAILY [facility] Last Admin: 01/02/22 10:24 Dose: 5 mg Documented By: ESTHER Lipase/Protease/Amylase (Lipase/Protease/Amylase 09/11/23 Cap) 1 cap PO TIDWM [facility] Last Admin: 01/02/22 10:39 Dose: 1 cap Documented By: ESTHER Diphtheria/Tetanus/Acell Pertussis (Diph,Pertuss(Acell),Tet Vac/Pf 0.5 Ml Syringe) 0.5 ml IM .ONCE ONE Stop: 12/31/21 19:38 Last Admin: 12/31/21 21:25 Dose: Not Given Documented By: AMU Hydromorphone HCl (Hydromorphone 0.5 Mg Inj) 1 mg IV Q15MIN PRN PRN Reason: Pain, Last Admin: 01/02/22 10:35 Dose: 1 mg Documented By: Admin: 12/31/21 22:56 Dose: 0.5 mg Documented By: Admin: 12/31/21 20:41 Dose: 1 mg Documented By: Admin: 12/31/21 20:10 Dose: 1 mg Documented By: HAILEY Hydromorphone HCl (Hydromorphone 0.5 Mg Inj) 0.5 mg IV Q15MIN PRN PRN Reason: Pain, Last Admin: 01/02/22 02:54 Dose: 0.5 mg Documented By: Admin: 01/01/22 01:02 Dose: 0.5 mg Documented By: HAILEY Hydromorphone HCl (Hydromorphone 0.5 Mg Inj) 0.5 mg IV NOW ONE Stop: 01/01/22 11:27 Last Admin: 01/01/22 12:15 Dose: 0.5 mg Documented By: CONRAD Vancomycin HCl (Vancomycin) 750 mg in 150 mls @ 150 mls/hr IV NOW ONE Stop: 12/31/21 20:40 Last Infusion: 12/31/21 22:34 Dose: 0 mls/hr Documented By: Admin: 12/31/21 21:24 Dose: 150 mls/hr Documented By: AMU Piperacillin Sod/Tazobactam (Sod 4.5 gm/ Sodium Chloride) 100 mls @ 200 mls/hr IV NOW ONE Stop: 12/31/21 19:42 Last Infusion: 12/31/21 20:45 Dose: 0 mls/hr Documented By: Admin: 12/31/21 20:10 Dose: 200 mls/hr Documented By: HAILEY Sodium Chloride (Normal Saline 0.9%) 500 mls @ 1,000 mls/hr IV BOLUS ONE Stop: 12/31/21 23:17 Last Infusion: 01/01/22 01:00 Dose: 0 mls/hr Documented By: Admin: 12/31/21 22:56 Dose: 1,000 mls/hr Documented By: HAILEY Piperacillin Sod/Tazobactam (Sod 3.375 gm/ Sodium Chloride) 100 mls @ 25 mls/hr IV Q8H [facility] Last Admin: 01/02/22 11:57 Dose: Not Given Documented By: Infusion: 01/02/22 07:15 Dose: 0 mls/hr Documented By: Admin: 01/02/22 02:56 Dose: 25 mls/hr Documented By: Infusion: 01/01/22 23:33 Dose: 0 mls/hr Documented By: Admin: 01/01/22 19:07 Dose: 25 mls/hr Documented By: Infusion: 01/01/22 18:11 Dose: 0 mls/hr Documented By: Admin: 01/01/22 12:14 Dose: 25 mls/hr Documented By: Infusion: 01/01/22 07:26 Dose: 0 mls/hr Documented By: Admin: 01/01/22 03:11 Dose: 25 mls/hr Documented By: HAILEY Labetalol HCl (Labetalol 100 Mg Tablet) 100 mg PO DAILY [facility] Last Admin: 01/02/22 10:37 Dose: 100 mg Documented By: ESTHER Levetiracetam (Levetiracetam 250 Mg Tablet) 500 mg PO DAILY [facility] Last Admin: 01/02/22 10:23 Dose: 500 mg Documented By: ESTHER Levetiracetam (Levetiracetam 250 Mg Tablet) 500 mg PO NOW ONE Stop: 01/01/22 18:50 Last Admin: 01/01/22 19:20 Dose: 500 mg Documented By: BOLIVAR Metoclopramide HCl (Metoclopramide 10 Mg/2 Ml Inj) 10 mg IV NOW ONE Stop: 01/01/22 05:36 Last Admin: 01/01/22 05:41 Dose: 10 mg Documented By: HAILEY Morphine Sulfate (Morphine 2 Mg/Ml Inj) 4 mg IV NOW ONE Stop: 12/31/21 17:58 Last Admin: 12/31/21 18:07 Dose: 4 mg Documented By: RB Morphine Sulfate (Morphine 4 Mg/Ml Inj) 4 mg IV NOW ONE Stop: 12/31/21 19:32 Last Admin: 12/31/21 19:36 Dose: 4 mg Documented By: EB Ondansetron HCl (Ondansetron 4 Mg/2 Ml Inj) 4 mg IV NOW ONE Stop: 12/31/21 19:25 Last Admin: 12/31/21 19:36 Dose: 4 mg Documented By: EB Ondansetron HCl (Ondansetron 4 Mg/2 Ml Inj) 4 mg IV NOW ONE Stop: 01/01/22 00:57 Last Admin: 01/01/22 01:03 Dose: 4 mg Documented By: HAILEY Ondansetron HCl (Ondansetron 4 Mg/2 Ml Inj) 4 mg IV NOW ONE Stop: 01/01/22 11:27 Last Admin: 01/01/22 12:15 Dose: 4 mg Documented By: CONRAD Ondansetron HCl (Ondansetron 4 Mg/2 Ml Inj) 4 mg IV Q6HR PRN PRN Reason: Nausea And Vomiting Last Admin: 01/02/22 10:36 Dose: 4 mg Documented By: ESTHER Ondansetron HCl (Ondansetron 4 Mg Odt) 4 mg SL NOW ONE Stop: 01/02/22 10:08 Last Admin: 01/02/22 11:20 Dose: Not Given Documented By: AT Oxycodone/Acetaminophen (Oxycodone/Acetaminophen 5/325 Tablet) 2 tab PO NOW ONE Stop: 12/31/21 22:49 Last Admin: 12/31/21 22:55 Dose: 2 tab Documented By: EB Vital Signs Vital signs: Vital Signs - 8 hr 01/02/22 10:37 01/02/22 10:37 01/02/22 10:39 Pulse Rate 95 H 83 Blood Pressure 117/82 133/67 Pulse Oximetry 99 Oxygen Delivery Method 01/02/22 10:39 01/02/22 11:00 01/02/22 11:30 Pulse Rate 108 H 116 H 81 Blood Pressure Pulse Oximetry 97 99 96 Oxygen Delivery Method Room Air Room Air 01/02/22 12:00 01/02/22 12:30 01/02/22 12:30 Pulse Rate 72 81 Blood Pressure 113/67 Pulse Oximetry 93 97 Oxygen Delivery Method <Salo Brennick, MD - Last Filed: 01/02/22 18:19> Course Course Narrative: January 02, 2022 at 7:00 a.m.. Sign out from Dr. William, patient on multiple waiting lists for bed availability. Patient has dialysis Thursday and Saturdays. Today trying to find local resources for her dialysis. Medications and labs are populated daily. 9:28 a.m... Spoke with [facility] [place] nephrologists, dr margi patel, he is unable to accept patient to their facility for dialysis today due to policy of their facility. However I did review chemistry lab results and at this time does not need urgent dialysis today 10:08 a.m.. Spoke with patient and . Skin wound is not new. Patient being followed by Dr. Corea with wound care clinic here locally. Has dialysis here in [place]. Do today. Patient seen by Dr. Pérez general surgery December 18 some debridement of the skin wound on the left gluteal area. That has improved significantly. I did take down all of the dressings. They do show mild erythema at the edges with granulation tissue at the center. No foul odor. Patient and desire discharge home. She has tolerated hydrocodone with good success in the past. 10:[address] Pérez general surgeon. He feels patient with these wounds are chronic and can be discharged home. He states patient needs more wound care visits as he states his intervention with patient was not significant amount of debridement. Patient may continue antibiotics at discretion of wound care but at this time he does not feel patient needs antibiotics. 10:25 a.m.. Spoke with wound care provider Dr. Corea, he agrees patient can be followed up with him. At this time patient may need to continue antibiotics. He is not aware patient was on antibiotics prior to visit here. 10:35 a.m.. Spoke with louise Ulloa, will likely need Augmentin to go home and will call back for renal dosing 10:50 a.m.. Spoke with dialysis center [facility] dialysis here in [facility],, manager it security states she can see patient for dialysis today on discharge. Patient is not currently on any dialysis antibiotics 10:55 a.m.. Spoke with pharmacist, travels, recommendations are Augmentin 500 mg twice a day for 10 days, on days of dialysis will need additional 3rd dose after dialysis. 12:[address] [facility] Dr. Blankenship, infectious Disease, agrees with Augmentin for outpatient. Regarding lactic acid this may be related to her kidney condition. However would review with Nephrology. Also reviewed procalcitonin 12:[address] Kramer, patient's die technician. Very familiar with patient and her care and recent stay in the ER. Regarding the lactic acid, patient is not toxic appearing would not pursue the lactic acid. He knows patient very well. May be related to her liver cirrhosis Agrees with Augmentin for discharge home and dialysis today. He will follow up with patient after discharge. Also reviewed procalcitonin Orders Ordered: Discontinued Medications Hydrocodone Bitart/Acetaminophen (Hydrocodone/Acet 5/325 Tablet) 1 tab PO NOW ONE Stop: 01/02/22 10:08 Last Admin: 01/02/22 11:20 Dose: Not Given Documented By: AT Amlodipine Besylate (Amlodipine 5 Mg Tablet) 5 mg PO DAILY [facility] Last Admin: 01/02/22 10:24 Dose: 5 mg Documented By: ESTHER Lipase/Protease/Amylase (Lipase/Protease/Amylase 09/11/23 Cap) 1 cap PO TIDWM [facility] Last Admin: 01/02/22 10:39 Dose: 1 cap Documented By: ESTHER Diphtheria/Tetanus/Acell Pertussis (Diph,Pertuss(Acell),Tet Vac/Pf 0.5 Ml Syringe) 0.5 ml IM .ONCE ONE Stop: 12/31/21 19:38 Last Admin: 12/31/21 21:25 Dose: Not Given Documented By: ADRIEN Hydromorphone HCl (Hydromorphone 0.5 Mg Inj) 1 mg IV Q15MIN PRN PRN Reason: Pain, Last Admin: 01/02/22 10:35 Dose: 1 mg Documented By: Admin: 12/31/21 22:56 Dose: 0.5 mg Documented By: Admin: 12/31/21 20:41 Dose: 1 mg Documented By: Admin: 12/31/21 20:10 Dose: 1 mg Documented By: HAILEY Hydromorphone HCl (Hydromorphone 0.5 Mg Inj) 0.5 mg IV Q15MIN PRN PRN Reason: Pain, Last Admin: 01/02/22 02:54 Dose: 0.5 mg Documented By: Admin: 01/01/22 01:02 Dose: 0.5 mg Documented By: HAILEY Hydromorphone HCl (Hydromorphone 0.5 Mg Inj) 0.5 mg IV NOW ONE Stop: 01/01/22 11:27 Last Admin: 01/01/22 12:15 Dose: 0.5 mg Documented By: RB Vancomycin HCl (Vancomycin) 750 mg in 150 mls @ 150 mls/hr IV NOW ONE Stop: 12/31/21 20:40 Last Infusion: 12/31/21 22:34 Dose: 0 mls/hr Documented By: Admin: 12/31/21 21:24 Dose: 150 mls/hr Documented By: ADRIEN Piperacillin Sod/Tazobactam (Sod 4.5 gm/ Sodium Chloride) 100 mls @ 200 mls/hr IV NOW ONE Stop: 12/31/21 19:42 Last Infusion: 12/31/21 20:45 Dose: 0 mls/hr Documented By: Admin: 12/31/21 20:10 Dose: 200 mls/hr Documented By: HAILEY Sodium Chloride (Normal Saline 0.9%) 500 mls @ 1,000 mls/hr IV BOLUS ONE Stop: 12/31/21 23:17 Last Infusion: 01/01/22 01:00 Dose: 0 mls/hr Documented By: Admin: 12/31/21 22:56 Dose: 1,000 mls/hr Documented By: EB Piperacillin Sod/Tazobactam (Sod 3.375 gm/ Sodium Chloride) 100 mls @ 25 mls/hr IV Q8H [facility] Last Admin: 01/02/22 11:57 Dose: Not Given Documented By: Infusion: 01/02/22 07:15 Dose: 0 mls/hr Documented By: JZuly Admin: 01/02/22 02:56 Dose: 25 mls/hr Documented By: Infusion: 01/01/22 23:33 Dose: 0 mls/hr Documented By: DKNirmala Admin: 01/01/22 19:07 Dose: 25 mls/hr Documented By: DKNirmala Infusion: 01/01/22 18:11 Dose: 0 mls/hr Documented By: Admin: 01/01/22 12:14 Dose: 25 mls/hr Documented By: Infusion: 01/01/22 07:26 Dose: 0 mls/hr Documented By: Admin: 01/01/22 03:11 Dose: 25 mls/hr Documented By: HAILEY Labetalol HCl (Labetalol 100 Mg Tablet) 100 mg PO DAILY [facility] Last Admin: 01/02/22 10:37 Dose: 100 mg Documented By: ESTHER Levetiracetam (Levetiracetam 250 Mg Tablet) 500 mg PO DAILY [facility] Last Admin: 01/02/22 10:23 Dose: 500 mg Documented By: ESTHER Levetiracetam (Levetiracetam 250 Mg Tablet) 500 mg PO NOW ONE Stop: 01/01/22 18:50 Last Admin: 01/01/22 19:20 Dose: 500 mg Documented By: BOLIVAR Metoclopramide HCl (Metoclopramide 10 Mg/2 Ml Inj) 10 mg IV NOW ONE Stop: 01/01/22 05:36 Last Admin: 01/01/22 05:41 Dose: 10 mg Documented By: HAILEY Morphine Sulfate (Morphine 2 Mg/Ml Inj) 4 mg IV NOW ONE Stop: 12/31/21 17:58 Last Admin: 12/31/21 18:07 Dose: 4 mg Documented By: CONRAD Morphine Sulfate (Morphine 4 Mg/Ml Inj) 4 mg IV NOW ONE Stop: 12/31/21 19:32 Last Admin: 12/31/21 19:36 Dose: 4 mg Documented By: HAILEY Ondansetron HCl (Ondansetron 4 Mg/2 Ml Inj) 4 mg IV NOW ONE Stop: 12/31/21 19:25 Last Admin: 12/31/21 19:36 Dose: 4 mg Documented By: HAILEY Ondansetron HCl (Ondansetron 4 Mg/2 Ml Inj) 4 mg IV NOW ONE Stop: 01/01/22 00:57 Last Admin: 01/01/22 01:03 Dose: 4 mg Documented By: HAILEY Ondansetron HCl (Ondansetron 4 Mg/2 Ml Inj) 4 mg IV NOW ONE Stop: 01/01/22 11:27 Last Admin: 01/01/22 12:15 Dose: 4 mg Documented By: CONRAD Ondansetron HCl (Ondansetron 4 Mg/2 Ml Inj) 4 mg IV Q6HR PRN PRN Reason: Nausea And Vomiting Last Admin: 01/02/22 10:36 Dose: 4 mg Documented By: ESTHER Ondansetron HCl (Ondansetron 4 Mg Odt) 4 mg SL NOW ONE Stop: 01/02/22 10:08 Last Admin: 01/02/22 11:20 Dose: Not Given Documented By: AT Oxycodone/Acetaminophen (Oxycodone/Acetaminophen 5/325 Tablet) 2 tab PO NOW ONE Stop: 12/31/21 22:49 Last Admin: 12/31/21 22:55 Dose: 2 tab Documented By: EB Reevaluation(s) Reevaluation #1: Spoke with patient and treatment plan and multiple providers to follow up in dialysis today and antibiotics prescriptions. Return precautions reviewed with them. They desire discharge home. Patient has refill oxycodone today at the pharmacy by her provider. Not toxic at this Time: 11:08 Reevaluation #2: I did review lactic acid with Infectious Disease as well as Nephrology and I did review this with patient and . They are comfortable with discharge home. At this time these numbers may be related to her liver as well as her kidney. Patient is not toxic or septic or hypotensive or febrile. Normal white cell count. They desire discharge home Time: 12:22 Consultations Consultation #1: Spoke with radiology, dr victor, he reviewed x-ray of left hip and CT scan of abdomen pelvis from 2 days ago. We do not see gas forming items on the hips either side on CT scan. X-ray likely artifact he states. Time: 11:53 Vital Signs Vital signs: Vital Signs - 8 hr 01/02/22 10:37 01/02/22 10:37 01/02/22 10:39 Pulse Rate 95 H 83 Blood Pressure 117/82 133/67 Pulse Oximetry 99 Oxygen Delivery Method 01/02/22 10:39 01/02/22 11:00 01/02/22 11:30 Pulse Rate 108 H 116 H 81 Blood Pressure Pulse Oximetry 97 99 96 Oxygen Delivery Method Room Air Room Air 01/02/22 12:00 01/02/22 12:30 01/02/22 12:30 Pulse Rate 72 81 Blood Pressure 113/67 Pulse Oximetry 93 97 Oxygen Delivery Method MDM - Skin/Abscess/Foreign Bdy <Hyma BUSTER Dyer-C - Last Filed: 12/31/21 19:54> Lab Data Lab results narrative: Lactate 3.5. Creatinine 2.15 Result diagrams: 01/02/22 06:10 01/02/22 06:10 Labs: Lab Results 12/31/21 12/31/21 12/31/21 Range/Units 17:45 17:45 17:45 WBC 6.3 (4.5-11.0) X10^3/uL RBC 3.30 L (4.0-5.2) X10^6/uL Hgb 9.8 L (12.0-16.0) g/dL Hct 28.3 L (36-46) % MCV 85.8 (80-100) fL MCH 29.7 (26-34) PG MCHC 34.6 (30-36) % RDW 22.0 H (11.6-14.8) % Plt Count 94 L (150-400) X10^3/uL Neut % (Auto) 76.1 H (50-75) % Lymph % (Auto) 16.4 L (25-40) % Kemper % (Auto) 6.6 (3-14) % Eos % (Auto) 0.4 L (2-4) % Baso % (Auto) 0.5 (0-2) % Neut # (Auto) 4800 (9273-4346) /uL Lymph # (Auto) 1000 L (8396-2161) /uL Kemper # (Auto) 400 (0-900) /uL Eos # (Auto) 0 (0-450) /uL Baso # (Auto) 0 (0-100) /uL Platelet Estimate Decreased on smear RBC Morphology See below Poikilocytosis 1+ H Anisocytosis 2+ H Spherocytes Ovalocytes 1+ H Schistocytes ESR (0-20) MM/HR Sodium 136 L (137-145) mmol/L Potassium 3.7 (3.4-5.1) mmol/L Chloride 94 L (98-107) mmol/L Carbon Dioxide 27 (22-32) mmol/L BUN 12 (7-17) mg/dL Creatinine 2.15 H (0.52-1.04) mg/dL Estimated GFR 26 L (>60) mL/min BUN/Creatinine Ratio 5.6 L (6-22) Glucose 167 H (80-110) mg/dL Lactate 3.7 H (0.7-2.1) mmol/L Calcium 7.9 L (8.4-10.2) mg/dL Phosphorus 3.0 (2.8-4.1) mg/dL Magnesium 1.9 (1.6-2.3) mg/dL Total Bilirubin 0.8 (0.2-1.3) mg/dL AST 27 (14-36) IU/L ALT 15 (<35) IU/L Alkaline Phosphatase 111 (38-126) U/L C-Reactive Protein (<1.0) mg/dL Total Protein 7.2 (6.3-8.2) g/dL Albumin 3.4 L (3.5-5.0) g/dL Globulin 3.8 (1.7-4.1) g/dL Albumin/Globulin Ratio 0.9 L (1.0-2.8) Procalcitonin (<0.5) ng/mL SARS-CoV-2 (PCR) (Negative) 12/31/21 12/31/21 12/31/21 Range/Units 17:45 17:45 20:00 WBC (4.5-11.0) X10^3/uL RBC (4.0-5.2) X10^6/uL Hgb (12.0-16.0) g/dL Hct (36-46) % MCV (80-100) fL MCH (26-34) PG MCHC (30-36) % RDW (11.6-14.8) % Plt Count (150-400) X10^3/uL Neut % (Auto) (50-75) % Lymph % (Auto) (25-40) % Kemper % (Auto) (3-14) % Eos % (Auto) (2-4) % Baso % (Auto) (0-2) % Neut # (Auto) (3539-5994) /uL Lymph # (Auto) (8108-7169) /uL Kemper # (Auto) (0-900) /uL Eos # (Auto) (0-450) /uL Baso # (Auto) (0-100) /uL Platelet Estimate RBC Morphology Poikilocytosis Anisocytosis Spherocytes Ovalocytes Schistocytes ESR 28 H (0-20) MM/HR Sodium (137-145) mmol/L Potassium (3.4-5.1) mmol/L Chloride (98-107) mmol/L Carbon Dioxide (22-32) mmol/L BUN (7-17) mg/dL Creatinine (0.52-1.04) mg/dL Estimated GFR (>60) mL/min BUN/Creatinine Ratio (6-22) Glucose (80-110) mg/dL Lactate 2.8 H (0.7-2.1) mmol/L Calcium (8.4-10.2) mg/dL Phosphorus (2.8-4.1) mg/dL Magnesium (1.6-2.3) mg/dL Total Bilirubin (0.2-1.3) mg/dL AST (14-36) IU/L ALT (<35) IU/L Alkaline Phosphatase (38-126) U/L C-Reactive Protein 4.2 H (<1.0) mg/dL Total Protein (6.3-8.2) g/dL Albumin (3.5-5.0) g/dL Globulin (1.7-4.1) g/dL Albumin/Globulin Ratio (1.0-2.8) Procalcitonin (<0.5) ng/mL SARS-CoV-2 (PCR) (Negative) 12/31/21 01/01/22 01/01/22 Range/Units 21:05 06:25 06:25 WBC 4.9 (4.5-11.0) X10^3/uL RBC 3.15 L (4.0-5.2) X10^6/uL Hgb 9.3 L (12.0-16.0) g/dL Hct 27.3 L (36-46) % MCV 86.7 (80-100) fL MCH 29.4 (26-34) PG MCHC 33.9 (30-36) % RDW 22.0 H (11.6-14.8) % Plt Count 101 L (150-400) X10^3/uL Neut % (Auto) 75.0 (50-75) % Lymph % (Auto) 15.5 L (25-40) % Kemper % (Auto) 8.3 (3-14) % Eos % (Auto) 0.5 L (2-4) % Baso % (Auto) 0.7 (0-2) % Neut # (Auto) 3600 (9720-9825) /uL Lymph # (Auto) 800 L (7162-8940) /uL Kemper # (Auto) 400 (0-900) /uL Eos # (Auto) 0 (0-450) /uL Baso # (Auto) 0 (0-100) /uL Platelet Estimate RBC Morphology See below Poikilocytosis Anisocytosis 2+ H Spherocytes Ovalocytes Schistocytes ESR (0-20) MM/HR Sodium 138 (137-145) mmol/L Potassium 3.6 (3.4-5.1) mmol/L Chloride 95 L (98-107) mmol/L Carbon Dioxide 27 (22-32) mmol/L BUN 15 (7-17) mg/dL Creatinine 2.48 H (0.52-1.04) mg/dL Estimated GFR 22 L (>60) mL/min BUN/Creatinine Ratio 6.0 (6-22) Glucose 140 H (80-110) mg/dL Lactate (0.7-2.1) mmol/L Calcium 8.1 L (8.4-10.2) mg/dL Phosphorus (2.8-4.1) mg/dL Magnesium (1.6-2.3) mg/dL Total Bilirubin 0.9 (0.2-1.3) mg/dL AST 19 (14-36) IU/L ALT 12 (<35) IU/L Alkaline Phosphatase 96 (38-126) U/L C-Reactive Protein (<1.0) mg/dL Total Protein 6.7 (6.3-8.2) g/dL Albumin 3.1 L (3.5-5.0) g/dL Globulin 3.6 (1.7-4.1) g/dL Albumin/Globulin Ratio 0.9 L (1.0-2.8) Procalcitonin (<0.5) ng/mL SARS-CoV-2 (PCR) Negative (Negative) 01/02/22 01/02/22 01/02/22 Range/Units 06:10 06:10 11:26 WBC 5.4 (4.5-11.0) X10^3/uL RBC 3.41 L (4.0-5.2) X10^6/uL Hgb 10.0 L (12.0-16.0) g/dL Hct 29.5 L (36-46) % MCV 86.5 (80-100) fL MCH 29.3 (26-34) PG MCHC 33.9 (30-36) % RDW 21.6 H (11.6-14.8) % Plt Count 103 L (150-400) X10^3/uL Neut % (Auto) 81.5 H (50-75) % Lymph % (Auto) 8.0 L (25-40) % Kemper % (Auto) 7.5 (3-14) % Eos % (Auto) 2.4 (2-4) % Baso % (Auto) 0.6 (0-2) % Neut # (Auto) 4400 (9326-4596) /uL Lymph # (Auto) 400 L (9323-8709) /uL Kemper # (Auto) 400 (0-900) /uL Eos # (Auto) 100 (0-450) /uL Baso # (Auto) 0 (0-100) /uL Platelet Estimate RBC Morphology See below Poikilocytosis 2+ H Anisocytosis 3+ H Spherocytes 1+ H Ovalocytes 2+ H Schistocytes 1+ H ESR (0-20) MM/HR Sodium 136 L (137-145) mmol/L Potassium 3.7 (3.4-5.1) mmol/L Chloride 92 L (98-107) mmol/L Carbon Dioxide 23 (22-32) mmol/L BUN 19 H (7-17) mg/dL Creatinine 3.25 H (0.52-1.04) mg/dL Estimated GFR 16 L (>60) mL/min BUN/Creatinine Ratio 5.8 L (6-22) Glucose 273 H D (80-110) mg/dL Lactate 3.1 H (0.7-2.1) mmol/L Calcium 7.7 L (8.4-10.2) mg/dL Phosphorus 5.4 H D (2.8-4.1) mg/dL Magnesium (1.6-2.3) mg/dL Total Bilirubin 1.0 (0.2-1.3) mg/dL AST 16 (14-36) IU/L ALT 12 (<35) IU/L Alkaline Phosphatase 81 (38-126) U/L C-Reactive Protein (<1.0) mg/dL Total Protein 6.3 (6.3-8.2) g/dL Albumin 2.9 L (3.5-5.0) g/dL Globulin 3.4 (1.7-4.1) g/dL Albumin/Globulin Ratio 0.9 L (1.0-2.8) Procalcitonin (<0.5) ng/mL SARS-CoV-2 (PCR) (Negative) 01/02/22 Range/Units 11:26 WBC (4.5-11.0) X10^3/uL RBC (4.0-5.2) X10^6/uL Hgb (12.0-16.0) g/dL Hct (36-46) % MCV (80-100) fL MCH (26-34) PG MCHC (30-36) % RDW (11.6-14.8) % Plt Count (150-400) X10^3/uL Neut % (Auto) (50-75) % Lymph % (Auto) (25-40) % Kemper % (Auto) (3-14) % Eos % (Auto) (2-4) % Baso % (Auto) (0-2) % Neut # (Auto) (2414-8561) /uL Lymph # (Auto) (6594-9935) /uL Kemper # (Auto) (0-900) /uL Eos # (Auto) (0-450) /uL Baso # (Auto) (0-100) /uL Platelet Estimate RBC Morphology Poikilocytosis Anisocytosis Spherocytes Ovalocytes Schistocytes ESR (0-20) MM/HR Sodium (137-145) mmol/L Potassium (3.4-5.1) mmol/L Chloride (98-107) mmol/L Carbon Dioxide (22-32) mmol/L BUN (7-17) mg/dL Creatinine (0.52-1.04) mg/dL Estimated GFR (>60) mL/min BUN/Creatinine Ratio (6-22) Glucose (80-110) mg/dL Lactate (0.7-2.1) mmol/L Calcium (8.4-10.2) mg/dL Phosphorus (2.8-4.1) mg/dL Magnesium (1.6-2.3) mg/dL Total Bilirubin (0.2-1.3) mg/dL AST (14-36) IU/L ALT (<35) IU/L Alkaline Phosphatase (38-126) U/L C-Reactive Protein (<1.0) mg/dL Total Protein (6.3-8.2) g/dL Albumin (3.5-5.0) g/dL Globulin (1.7-4.1) g/dL Albumin/Globulin Ratio (1.0-2.8) Procalcitonin 1.18 H (<0.5) ng/mL SARS-CoV-2 (PCR) (Negative) MDM Narrative Medical decision making narrative: 61-year-old female with past medical history alcoholic cirrhosis of the liver with ascites, end-stage renal disease, on dialysis Thursday, calciphylaxis, pulmonary hypertension, stage IV sacral decubitus ulcer, type 2 diabetes presents to the ED with uncontrolled pain at the site of the ulcers. Concern for osteomyelitis versus infected ulcers versus sepsis. Will obtain labs, lactate, phosphorus, ESR, CRP, x-rays. Will control pain with morphine. Will reassess. X-ray shows Soft tissue gas in the left lateral upper thigh may related to gas forming infection.? Will obtain CT. Will start patient on vancomycin and Zosyn, obtain blood cultures prior to starting antibiotics. Patient is now signed out to Dr. Rosey Cunningham. <Rosey Lares MD - Last Filed: 01/10/22 18:04> Lab Data Labs: Lab Results 12/31/21 12/31/21 12/31/21 Range/Units 17:45 17:45 17:45 WBC 6.3 (4.5-11.0) X10^3/uL RBC 3.30 L (4.0-5.2) X10^6/uL Hgb 9.8 L (12.0-16.0) g/dL Hct 28.3 L (36-46) % MCV 85.8 (80-100) fL MCH 29.7 (26-34) PG MCHC 34.6 (30-36) % RDW 22.0 H (11.6-14.8) % Plt Count 94 L (150-400) X10^3/uL Neut % (Auto) 76.1 H (50-75) % Lymph % (Auto) 16.4 L (25-40) % Kemper % (Auto) 6.6 (3-14) % Eos % (Auto) 0.4 L (2-4) % Baso % (Auto) 0.5 (0-2) % Neut # (Auto) 4800 (5625-3803) /uL Lymph # (Auto) 1000 L (6100-4910) /uL Kemper # (Auto) 400 (0-900) /uL Eos # (Auto) 0 (0-450) /uL Baso # (Auto) 0 (0-100) /uL Platelet Estimate Decreased on smear RBC Morphology See below Poikilocytosis 1+ H Anisocytosis 2+ H Spherocytes Ovalocytes 1+ H Schistocytes ESR (0-20) MM/HR Sodium 136 L (137-145) mmol/L Potassium 3.7 (3.4-5.1) mmol/L Chloride 94 L (98-107) mmol/L Carbon Dioxide 27 (22-32) mmol/L BUN 12 (7-17) mg/dL Creatinine 2.15 H (0.52-1.04) mg/dL Estimated GFR 26 L (>60) mL/min BUN/Creatinine Ratio 5.6 L (6-22) Glucose 167 H (80-110) mg/dL Lactate 3.7 H (0.7-2.1) mmol/L Calcium 7.9 L (8.4-10.2) mg/dL Phosphorus 3.0 (2.8-4.1) mg/dL Magnesium 1.9 (1.6-2.3) mg/dL Total Bilirubin 0.8 (0.2-1.3) mg/dL AST 27 (14-36) IU/L ALT 15 (<35) IU/L Alkaline Phosphatase 111 (38-126) U/L C-Reactive Protein (<1.0) mg/dL Total Protein 7.2 (6.3-8.2) g/dL Albumin 3.4 L (3.5-5.0) g/dL Globulin 3.8 (1.7-4.1) g/dL Albumin/Globulin Ratio 0.9 L (1.0-2.8) Procalcitonin (<0.5) ng/mL SARS-CoV-2 (PCR) (Negative) 12/31/21 12/31/21 12/31/21 Range/Units 17:45 17:45 20:00 WBC (4.5-11.0) X10^3/uL RBC (4.0-5.2) X10^6/uL Hgb (12.0-16.0) g/dL Hct (36-46) % MCV (80-100) fL MCH (26-34) PG MCHC (30-36) % RDW (11.6-14.8) % Plt Count (150-400) X10^3/uL Neut % (Auto) (50-75) % Lymph % (Auto) (25-40) % Kemper % (Auto) (3-14) % Eos % (Auto) (2-4) % Baso % (Auto) (0-2) % Neut # (Auto) (5345-5793) /uL Lymph # (Auto) (1076-1915) /uL Kemper # (Auto) (0-900) /uL Eos # (Auto) (0-450) /uL Baso # (Auto) (0-100) /uL Platelet Estimate RBC Morphology Poikilocytosis Anisocytosis Spherocytes Ovalocytes Schistocytes ESR 28 H (0-20) MM/HR Sodium (137-145) mmol/L Potassium (3.4-5.1) mmol/L Chloride (98-107) mmol/L Carbon Dioxide (22-32) mmol/L BUN (7-17) mg/dL Creatinine (0.52-1.04) mg/dL Estimated GFR (>60) mL/min BUN/Creatinine Ratio (6-22) Glucose (80-110) mg/dL Lactate 2.8 H (0.7-2.1) mmol/L Calcium (8.4-10.2) mg/dL Phosphorus (2.8-4.1) mg/dL Magnesium (1.6-2.3) mg/dL Total Bilirubin (0.2-1.3) mg/dL AST (14-36) IU/L ALT (<35) IU/L Alkaline Phosphatase (38-126) U/L C-Reactive Protein 4.2 H (<1.0) mg/dL Total Protein (6.3-8.2) g/dL Albumin (3.5-5.0) g/dL Globulin (1.7-4.1) g/dL Albumin/Globulin Ratio (1.0-2.8) Procalcitonin (<0.5) ng/mL SARS-CoV-2 (PCR) (Negative) 12/31/21 01/01/22 01/01/22 Range/Units 21:05 06:25 06:25 WBC 4.9 (4.5-11.0) X10^3/uL RBC 3.15 L (4.0-5.2) X10^6/uL Hgb 9.3 L (12.0-16.0) g/dL Hct 27.3 L (36-46) % MCV 86.7 (80-100) fL MCH 29.4 (26-34) PG MCHC 33.9 (30-36) % RDW 22.0 H (11.6-14.8) % Plt Count 101 L (150-400) X10^3/uL Neut % (Auto) 75.0 (50-75) % Lymph % (Auto) 15.5 L (25-40) % Kemper % (Auto) 8.3 (3-14) % Eos % (Auto) 0.5 L (2-4) % Baso % (Auto) 0.7 (0-2) % Neut # (Auto) 3600 (8550-2462) /uL Lymph # (Auto) 800 L (1080-4538) /uL Kemper # (Auto) 400 (0-900) /uL Eos # (Auto) 0 (0-450) /uL Baso # (Auto) 0 (0-100) /uL Platelet Estimate RBC Morphology See below Poikilocytosis Anisocytosis 2+ H Spherocytes Ovalocytes Schistocytes ESR (0-20) MM/HR Sodium 138 (137-145) mmol/L Potassium 3.6 (3.4-5.1) mmol/L Chloride 95 L (98-107) mmol/L Carbon Dioxide 27 (22-32) mmol/L BUN 15 (7-17) mg/dL Creatinine 2.48 H (0.52-1.04) mg/dL Estimated GFR 22 L (>60) mL/min BUN/Creatinine Ratio 6.0 (6-22) Glucose 140 H (80-110) mg/dL Lactate (0.7-2.1) mmol/L Calcium 8.1 L (8.4-10.2) mg/dL Phosphorus (2.8-4.1) mg/dL Magnesium (1.6-2.3) mg/dL Total Bilirubin 0.9 (0.2-1.3) mg/dL AST 19 (14-36) IU/L ALT 12 (<35) IU/L Alkaline Phosphatase 96 (38-126) U/L C-Reactive Protein (<1.0) mg/dL Total Protein 6.7 (6.3-8.2) g/dL Albumin 3.1 L (3.5-5.0) g/dL Globulin 3.6 (1.7-4.1) g/dL Albumin/Globulin Ratio 0.9 L (1.0-2.8) Procalcitonin (<0.5) ng/mL SARS-CoV-2 (PCR) Negative (Negative) 01/02/22 01/02/22 01/02/22 Range/Units 06:10 06:10 11:26 WBC 5.4 (4.5-11.0) X10^3/uL RBC 3.41 L (4.0-5.2) X10^6/uL Hgb 10.0 L (12.0-16.0) g/dL Hct 29.5 L (36-46) % MCV 86.5 (80-100) fL MCH 29.3 (26-34) PG MCHC 33.9 (30-36) % RDW 21.6 H (11.6-14.8) % Plt Count 103 L (150-400) X10^3/uL Neut % (Auto) 81.5 H (50-75) % Lymph % (Auto) 8.0 L (25-40) % Kemper % (Auto) 7.5 (3-14) % Eos % (Auto) 2.4 (2-4) % Baso % (Auto) 0.6 (0-2) % Neut # (Auto) 4400 (4317-6439) /uL Lymph # (Auto) 400 L (7561-0716) /uL Kemper # (Auto) 400 (0-900) /uL Eos # (Auto) 100 (0-450) /uL Baso # (Auto) 0 (0-100) /uL Platelet Estimate RBC Morphology See below Poikilocytosis 2+ H Anisocytosis 3+ H Spherocytes 1+ H Ovalocytes 2+ H Schistocytes 1+ H ESR (0-20) MM/HR Sodium 136 L (137-145) mmol/L Potassium 3.7 (3.4-5.1) mmol/L Chloride 92 L (98-107) mmol/L Carbon Dioxide 23 (22-32) mmol/L BUN 19 H (7-17) mg/dL Creatinine 3.25 H (0.52-1.04) mg/dL Estimated GFR 16 L (>60) mL/min BUN/Creatinine Ratio 5.8 L (6-22) Glucose 273 H D (80-110) mg/dL Lactate 3.1 H (0.7-2.1) mmol/L Calcium 7.7 L (8.4-10.2) mg/dL Phosphorus 5.4 H D (2.8-4.1) mg/dL Magnesium (1.6-2.3) mg/dL Total Bilirubin 1.0 (0.2-1.3) mg/dL AST 16 (14-36) IU/L ALT 12 (<35) IU/L Alkaline Phosphatase 81 (38-126) U/L C-Reactive Protein (<1.0) mg/dL Total Protein 6.3 (6.3-8.2) g/dL Albumin 2.9 L (3.5-5.0) g/dL Globulin 3.4 (1.7-4.1) g/dL Albumin/Globulin Ratio 0.9 L (1.0-2.8) Procalcitonin (<0.5) ng/mL SARS-CoV-2 (PCR) (Negative) 01/02/22 Range/Units 11:26 WBC (4.5-11.0) X10^3/uL RBC (4.0-5.2) X10^6/uL Hgb (12.0-16.0) g/dL Hct (36-46) % MCV (80-100) fL MCH (26-34) PG MCHC (30-36) % RDW (11.6-14.8) % Plt Count (150-400) X10^3/uL Neut % (Auto) (50-75) % Lymph % (Auto) (25-40) % Kemper % (Auto) (3-14) % Eos % (Auto) (2-4) % Baso % (Auto) (0-2) % Neut # (Auto) (3620-0426) /uL Lymph # (Auto) (1918-0288) /uL Kemper # (Auto) (0-900) /uL Eos # (Auto) (0-450) /uL Baso # (Auto) (0-100) /uL Platelet Estimate RBC Morphology Poikilocytosis Anisocytosis Spherocytes Ovalocytes Schistocytes ESR (0-20) MM/HR Sodium (137-145) mmol/L Potassium (3.4-5.1) mmol/L Chloride (98-107) mmol/L Carbon Dioxide (22-32) mmol/L BUN (7-17) mg/dL Creatinine (0.52-1.04) mg/dL Estimated GFR (>60) mL/min BUN/Creatinine Ratio (6-22) Glucose (80-110) mg/dL Lactate (0.7-2.1) mmol/L Calcium (8.4-10.2) mg/dL Phosphorus (2.8-4.1) mg/dL Magnesium (1.6-2.3) mg/dL Total Bilirubin (0.2-1.3) mg/dL AST (14-36) IU/L ALT (<35) IU/L Alkaline Phosphatase (38-126) U/L C-Reactive Protein (<1.0) mg/dL Total Protein (6.3-8.2) g/dL Albumin (3.5-5.0) g/dL Globulin (1.7-4.1) g/dL Albumin/Globulin Ratio (1.0-2.8) Procalcitonin 1.18 H (<0.5) ng/mL SARS-CoV-2 (PCR) (Negative) Imaging Data X-ray hip and femur: Radiologist's Impression: FINDINGS:? ? Bones:? No fractures or dislocations.? No suspicious bony lesions.? Joint space narrowing noted at the knee ? Soft tissues:? Diffuse atherosclerotic vascular calcification present. ? IMPRESSION:? Knee joint space narrowing and diffuse atherosclerotic vascular calcification without lytic lesion. ? Approved by: Jonathan Foster M.D. on 12/31/2021 at 18:14? FINDINGS:? ? Bones:? No fractures or dislocations.? No suspicious bony lesions.? The visualized pelvic ring appears intact.? Generalized decrease in osseous mineralization noted.? Moderate bilateral acetabular joint space narrowing present. ? Soft tissues:? Diffuse atherosclerotic vascular calcification present.? No radiopaque foreign body.? There is soft tissue gas in the left upper thigh laterally ? IMPRESSION:? ? Soft tissue gas in the left lateral upper thigh may related to gas forming infection.? Consider follow-up CT or MRI ? Diffuse advanced atherosclerotic vascular calcification ? Approved by: Jonathan Foster M.D. on 12/31/2021 at 18:09? CT scan - abdomen/pelvis: Radiologist's Impression: FINDINGS:? Image quality:? There is mild motion artifact.? ? Lung bases:? There are bilateral partially visualized small to moderate pleural effusions with associated compressive atelectasis in the lower lobes. Heart:? Heart size is enlarged.? There is a partially visualized moderate pericardial effusion. ? ? ABDOMEN: Liver:? The liver is heterogeneous in appearance with a lobulated nodular hepatic contour consistent with cirrhosis.? A small hypervascular oval lesion is demonstrated within segment 4A of the left hepatic lobe measuring up to 0.6 cm on series 2, image 19.? Findings are similar to the prior study.? A small oval hypodensity likely representing a cyst is demonstrated on series 2, image 25. Gallbladder:? Within normal limits without calcified gallstones.? ? Biliary ducts:? No biliary ductal dilatation.? ? Pancreas:? Multiple calcifications are demonstrated along the course of the pancreas consistent with sequelae of chronic pancreatitis.? There are multiple cystic structures demonstrated along the pancreas, with marked atrophy of the pancreatic parenchyma.? Findings suggest diffuse dilatation of the main pancreatic duct.? These include a cyst measuring up to 2.9 cm in the pancreatic body on series 2, image 30. Spleen:? Spleen is mildly enlarged. Adrenal Glands:? No adrenal nodules.? ? Kidneys and Ureters:? No hydronephrosis.? There is severe atrophy of the kidneys bilaterally.? ? ? Stomach and Bowel:? There is nonspecific mild gastric wall thickening.? Small bowel loops are normal in caliber.? There is suggestion of mild adrenal wall thickening involving multiple loops in the left abdomen.? No definite evidence of appendicitis.? There is colonic diverticulosis without definite acute diverticulitis.? Mild segmental wall thickening in the sigmoid colon may reflect a mild colitis or reactive changes. Peritoneum:? There is a small to moderate amount of ascites in the abdomen and pelvis.? No free air.? ? Abdominal Wall:? There is diffuse subcutaneous edema within the abdominal wall and visualized inferior chest wall consistent with anasarca.? No discrete abscess collections are identified in the gluteal regions or within the visualized lower extremities, but evaluation is limited by diffuse anasarca.? No abdominal wall hernias.? Abdominal Nodes:? No retroperitoneal or mesenteric adenopathy by size criteria.? Vessels:? Aorta and inferior vena cava are normal in size.? There is enlargement of the portal and splenic veins.? Multiple splenic varices are demonstrated.? There is a recanalized paraumbilical vein.? ? PELVIS: Pelvic Organs:? Unremarkable.? ? Bladder:? The urinary bladder is partially distended. Pelvic Nodes: No enlarged lymph nodes.? Miscellaneous: No inguinal hernias are seen. ? ? ? Bones:? Visualized osseous structures demonstrate no suspicious focal lesions. ? IMPRESSION:? ? 1. No discrete loculated fluid collections identified within the gluteal regions or within the visualized lower extremities to correlate with reported history of abscess collections.? Diffuse anasarca with extensive subcutaneous edema limits evaluation. ? 2. Nodular cirrhotic liver redemonstrated with evidence of portal hypertension including ascites, multiple varices, and enlargement of the portal and splenic veins. ? 3. Small indistinct hypervascular focus within the left hepatic lobe is incompletely characterized on the current study.? A hepatoma cannot be excluded.? Recommend further evaluation with a liver protocol MRI when clinically feasible. ? 4. Severe atrophy of the kidneys. ? 5. Sequelae of chronic pancreatitis redemonstrated with severe atrophy of the pancreatic parenchyma.? There is suspected marked dilatation of the main pancreatic duct as well as small cysts along the pancreas.? The findings may reflect a combined type IPMN or sequelae of chronic pancreatitis.? Further evaluation may also be obtained with MRI. ? 6. Mild wall thickening involving the stomach, a few segments of small bowel, and sigmoid colon may reflect sequelae of ascites or represent a mild infectious or inflammatory process.? ? Dictated by: Ld Villareal M.D. on 12/31/2021 at 22:03 ? ? <Katie Costello, DO - Last Filed: 01/01/22 18:55> Lab Data Labs: Lab Results 12/31/21 12/31/21 12/31/21 Range/Units 17:45 17:45 17:45 WBC 6.3 (4.5-11.0) X10^3/uL RBC 3.30 L (4.0-5.2) X10^6/uL Hgb 9.8 L (12.0-16.0) g/dL Hct 28.3 L (36-46) % MCV 85.8 (80-100) fL MCH 29.7 (26-34) PG MCHC 34.6 (30-36) % RDW 22.0 H (11.6-14.8) % Plt Count 94 L (150-400) X10^3/uL Neut % (Auto) 76.1 H (50-75) % Lymph % (Auto) 16.4 L (25-40) % Kemper % (Auto) 6.6 (3-14) % Eos % (Auto) 0.4 L (2-4) % Baso % (Auto) 0.5 (0-2) % Neut # (Auto) 4800 (2685-3113) /uL Lymph # (Auto) 1000 L (4042-1035) /uL Kemper # (Auto) 400 (0-900) /uL Eos # (Auto) 0 (0-450) /uL Baso # (Auto) 0 (0-100) /uL Platelet Estimate Decreased on smear RBC Morphology See below Poikilocytosis 1+ H Anisocytosis 2+ H Spherocytes Ovalocytes 1+ H Schistocytes ESR (0-20) MM/HR Sodium 136 L (137-145) mmol/L Potassium 3.7 (3.4-5.1) mmol/L Chloride 94 L (98-107) mmol/L Carbon Dioxide 27 (22-32) mmol/L BUN 12 (7-17) mg/dL Creatinine 2.15 H (0.52-1.04) mg/dL Estimated GFR 26 L (>60) mL/min BUN/Creatinine Ratio 5.6 L (6-22) Glucose 167 H (80-110) mg/dL Lactate 3.7 H (0.7-2.1) mmol/L Calcium 7.9 L (8.4-10.2) mg/dL Phosphorus 3.0 (2.8-4.1) mg/dL Magnesium 1.9 (1.6-2.3) mg/dL Total Bilirubin 0.8 (0.2-1.3) mg/dL AST 27 (14-36) IU/L ALT 15 (<35) IU/L Alkaline Phosphatase 111 (38-126) U/L C-Reactive Protein (<1.0) mg/dL Total Protein 7.2 (6.3-8.2) g/dL Albumin 3.4 L (3.5-5.0) g/dL Globulin 3.8 (1.7-4.1) g/dL Albumin/Globulin Ratio 0.9 L (1.0-2.8) Procalcitonin (<0.5) ng/mL SARS-CoV-2 (PCR) (Negative) 12/31/21 12/31/21 12/31/21 Range/Units 17:45 17:45 20:00 WBC (4.5-11.0) X10^3/uL RBC (4.0-5.2) X10^6/uL Hgb (12.0-16.0) g/dL Hct (36-46) % MCV (80-100) fL MCH (26-34) PG MCHC (30-36) % RDW (11.6-14.8) % Plt Count (150-400) X10^3/uL Neut % (Auto) (50-75) % Lymph % (Auto) (25-40) % Kemper % (Auto) (3-14) % Eos % (Auto) (2-4) % Baso % (Auto) (0-2) % Neut # (Auto) (4368-9315) /uL Lymph # (Auto) (5977-9901) /uL Kemper # (Auto) (0-900) /uL Eos # (Auto) (0-450) /uL Baso # (Auto) (0-100) /uL Platelet Estimate RBC Morphology Poikilocytosis Anisocytosis Spherocytes Ovalocytes Schistocytes ESR 28 H (0-20) MM/HR Sodium (137-145) mmol/L Potassium (3.4-5.1) mmol/L Chloride (98-107) mmol/L Carbon Dioxide (22-32) mmol/L BUN (7-17) mg/dL Creatinine (0.52-1.04) mg/dL Estimated GFR (>60) mL/min BUN/Creatinine Ratio (6-22) Glucose (80-110) mg/dL Lactate 2.8 H (0.7-2.1) mmol/L Calcium (8.4-10.2) mg/dL Phosphorus (2.8-4.1) mg/dL Magnesium (1.6-2.3) mg/dL Total Bilirubin (0.2-1.3) mg/dL AST (14-36) IU/L ALT (<35) IU/L Alkaline Phosphatase (38-126) U/L C-Reactive Protein 4.2 H (<1.0) mg/dL Total Protein (6.3-8.2) g/dL Albumin (3.5-5.0) g/dL Globulin (1.7-4.1) g/dL Albumin/Globulin Ratio (1.0-2.8) Procalcitonin (<0.5) ng/mL SARS-CoV-2 (PCR) (Negative) 12/31/21 01/01/22 01/01/22 Range/Units 21:05 06:25 06:25 WBC 4.9 (4.5-11.0) X10^3/uL RBC 3.15 L (4.0-5.2) X10^6/uL Hgb 9.3 L (12.0-16.0) g/dL Hct 27.3 L (36-46) % MCV 86.7 (80-100) fL MCH 29.4 (26-34) PG MCHC 33.9 (30-36) % RDW 22.0 H (11.6-14.8) % Plt Count 101 L (150-400) X10^3/uL Neut % (Auto) 75.0 (50-75) % Lymph % (Auto) 15.5 L (25-40) % Kemper % (Auto) 8.3 (3-14) % Eos % (Auto) 0.5 L (2-4) % Baso % (Auto) 0.7 (0-2) % Neut # (Auto) 3600 (6937-4495) /uL Lymph # (Auto) 800 L (5333-4475) /uL Kemper # (Auto) 400 (0-900) /uL Eos # (Auto) 0 (0-450) /uL Baso # (Auto) 0 (0-100) /uL Platelet Estimate RBC Morphology See below Poikilocytosis Anisocytosis 2+ H Spherocytes Ovalocytes Schistocytes ESR (0-20) MM/HR Sodium 138 (137-145) mmol/L Potassium 3.6 (3.4-5.1) mmol/L Chloride 95 L (98-107) mmol/L Carbon Dioxide 27 (22-32) mmol/L BUN 15 (7-17) mg/dL Creatinine 2.48 H (0.52-1.04) mg/dL Estimated GFR 22 L (>60) mL/min BUN/Creatinine Ratio 6.0 (6-22) Glucose 140 H (80-110) mg/dL Lactate (0.7-2.1) mmol/L Calcium 8.1 L (8.4-10.2) mg/dL Phosphorus (2.8-4.1) mg/dL Magnesium (1.6-2.3) mg/dL Total Bilirubin 0.9 (0.2-1.3) mg/dL AST 19 (14-36) IU/L ALT 12 (<35) IU/L Alkaline Phosphatase 96 (38-126) U/L C-Reactive Protein (<1.0) mg/dL Total Protein 6.7 (6.3-8.2) g/dL Albumin 3.1 L (3.5-5.0) g/dL Globulin 3.6 (1.7-4.1) g/dL Albumin/Globulin Ratio 0.9 L (1.0-2.8) Procalcitonin (<0.5) ng/mL SARS-CoV-2 (PCR) Negative (Negative) 01/02/22 01/02/22 01/02/22 Range/Units 06:10 06:10 11:26 WBC 5.4 (4.5-11.0) X10^3/uL RBC 3.41 L (4.0-5.2) X10^6/uL Hgb 10.0 L (12.0-16.0) g/dL Hct 29.5 L (36-46) % MCV 86.5 (80-100) fL MCH 29.3 (26-34) PG MCHC 33.9 (30-36) % RDW 21.6 H (11.6-14.8) % Plt Count 103 L (150-400) X10^3/uL Neut % (Auto) 81.5 H (50-75) % Lymph % (Auto) 8.0 L (25-40) % Kemper % (Auto) 7.5 (3-14) % Eos % (Auto) 2.4 (2-4) % Baso % (Auto) 0.6 (0-2) % Neut # (Auto) 4400 (9838-1231) /uL Lymph # (Auto) 400 L (6733-2179) /uL Kemper # (Auto) 400 (0-900) /uL Eos # (Auto) 100 (0-450) /uL Baso # (Auto) 0 (0-100) /uL Platelet Estimate RBC Morphology See below Poikilocytosis 2+ H Anisocytosis 3+ H Spherocytes 1+ H Ovalocytes 2+ H Schistocytes 1+ H ESR (0-20) MM/HR Sodium 136 L (137-145) mmol/L Potassium 3.7 (3.4-5.1) mmol/L Chloride 92 L (98-107) mmol/L Carbon Dioxide 23 (22-32) mmol/L BUN 19 H (7-17) mg/dL Creatinine 3.25 H (0.52-1.04) mg/dL Estimated GFR 16 L (>60) mL/min BUN/Creatinine Ratio 5.8 L (6-22) Glucose 273 H D (80-110) mg/dL Lactate 3.1 H (0.7-2.1) mmol/L Calcium 7.7 L (8.4-10.2) mg/dL Phosphorus 5.4 H D (2.8-4.1) mg/dL Magnesium (1.6-2.3) mg/dL Total Bilirubin 1.0 (0.2-1.3) mg/dL AST 16 (14-36) IU/L ALT 12 (<35) IU/L Alkaline Phosphatase 81 (38-126) U/L C-Reactive Protein (<1.0) mg/dL Total Protein 6.3 (6.3-8.2) g/dL Albumin 2.9 L (3.5-5.0) g/dL Globulin 3.4 (1.7-4.1) g/dL Albumin/Globulin Ratio 0.9 L (1.0-2.8) Procalcitonin (<0.5) ng/mL SARS-CoV-2 (PCR) (Negative) 01/02/22 Range/Units 11:26 WBC (4.5-11.0) X10^3/uL RBC (4.0-5.2) X10^6/uL Hgb (12.0-16.0) g/dL Hct (36-46) % MCV (80-100) fL MCH (26-34) PG MCHC (30-36) % RDW (11.6-14.8) % Plt Count (150-400) X10^3/uL Neut % (Auto) (50-75) % Lymph % (Auto) (25-40) % Kemper % (Auto) (3-14) % Eos % (Auto) (2-4) % Baso % (Auto) (0-2) % Neut # (Auto) (1966-1827) /uL Lymph # (Auto) (2498-3528) /uL Kemper # (Auto) (0-900) /uL Eos # (Auto) (0-450) /uL Baso # (Auto) (0-100) /uL Platelet Estimate RBC Morphology Poikilocytosis Anisocytosis Spherocytes Ovalocytes Schistocytes ESR (0-20) MM/HR Sodium (137-145) mmol/L Potassium (3.4-5.1) mmol/L Chloride (98-107) mmol/L Carbon Dioxide (22-32) mmol/L BUN (7-17) mg/dL Creatinine (0.52-1.04) mg/dL Estimated GFR (>60) mL/min BUN/Creatinine Ratio (6-22) Glucose (80-110) mg/dL Lactate (0.7-2.1) mmol/L Calcium (8.4-10.2) mg/dL Phosphorus (2.8-4.1) mg/dL Magnesium (1.6-2.3) mg/dL Total Bilirubin (0.2-1.3) mg/dL AST (14-36) IU/L ALT (<35) IU/L Alkaline Phosphatase (38-126) U/L C-Reactive Protein (<1.0) mg/dL Total Protein (6.3-8.2) g/dL Albumin (3.5-5.0) g/dL Globulin (1.7-4.1) g/dL Albumin/Globulin Ratio (1.0-2.8) Procalcitonin 1.18 H (<0.5) ng/mL SARS-CoV-2 (PCR) (Negative) MDM Narrative Medical decision making narrative: 61-year-old female with past medical history alcoholic cirrhosis of the liver with ascites, end-stage renal disease, on dialysis Thursday, calciphylaxis, pulmonary hypertension, stage IV sacral decubitus ulcer, type 2 diabetes presents to the ED with uncontrolled pain at the site of the ulcers. Concern for osteomyelitis versus infected ulcers versus sepsis. Will obtain labs, lactate, phosphorus, ESR, CRP, x-rays. Will control pain with morphine. Will reassess. X-ray shows Soft tissue gas in the left lateral upper thigh may related to gas forming infection.? Will obtain CT. Will start patient on vancomycin and Zosyn, obtain blood cultures prior to starting antibiotics. Patient is now signed out to Dr. Rosey Cunningham. Trang 01/01/22: Patient signed out to myself by Dr. Lares. Patient CT does not show gas forming or discrete loculated fluid collections. 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 Repeat labs this morning show stable white count, hemoglobin 9.3 . Patient's appears stable and platelets of 101. Patient's electrolytes appropriate at 1:38 a.m. with a potassium at 3.6 creatinine 2.48, glucose of 140, CRP and ESR are elevated. Lactate elevated history at 3 7 decreased to 2.8. Patient was stable overnight vitals appropriate this morning. Patient was also seen independently evaluated by myself. Currently awaiting potential transfer to outside facility for IV antibiotics, wound care, potential surgery as patient has had wounds debrided in the past but requires dialysis which we do not have available, patient currently weight listed at multiple facilities and [facility] regional hotline has been contacted to help find placement. Patient awake and requesting pain medications. She had a dose of reglan which was helpful but seem limited by patient's end-stage renal disease. She has persistent and chronic gastroparesis and nausea and vomiting. She states she has had issues with elevated phosphorus in the past she is unsure of exact dosing of her medications but is an on amlodipine, labetalol, lanthanum, an insulin typically short-acting but occasionally uses Levemir. [facility] did contact and we are still seeking a bed. Patient did not have any other additional issues throughout the day except for 1 dose of Zofran for nausea. Patient signed out to Dr. William overnight while awaiting potential placement. <Julio William, DO - Last Filed: 01/02/22 23:50> Lab Data Labs: Lab Results 12/31/21 12/31/21 12/31/21 Range/Units 17:45 17:45 17:45 WBC 6.3 (4.5-11.0) X10^3/uL RBC 3.30 L (4.0-5.2) X10^6/uL Hgb 9.8 L (12.0-16.0) g/dL Hct 28.3 L (36-46) % MCV 85.8 (80-100) fL MCH 29.7 (26-34) PG MCHC 34.6 (30-36) % RDW 22.0 H (11.6-14.8) % Plt Count 94 L (150-400) X10^3/uL Neut % (Auto) 76.1 H (50-75) % Lymph % (Auto) 16.4 L (25-40) % Kemper % (Auto) 6.6 (3-14) % Eos % (Auto) 0.4 L (2-4) % Baso % (Auto) 0.5 (0-2) % Neut # (Auto) 4800 (5640-2738) /uL Lymph # (Auto) 1000 L (1444-1896) /uL Kemper # (Auto) 400 (0-900) /uL Eos # (Auto) 0 (0-450) /uL Baso # (Auto) 0 (0-100) /uL Platelet Estimate Decreased on smear RBC Morphology See below Poikilocytosis 1+ H Anisocytosis 2+ H Spherocytes Ovalocytes 1+ H Schistocytes ESR (0-20) MM/HR Sodium 136 L (137-145) mmol/L Potassium 3.7 (3.4-5.1) mmol/L Chloride 94 L (98-107) mmol/L Carbon Dioxide 27 (22-32) mmol/L BUN 12 (7-17) mg/dL Creatinine 2.15 H (0.52-1.04) mg/dL Estimated GFR 26 L (>60) mL/min BUN/Creatinine Ratio 5.6 L (6-22) Glucose 167 H (80-110) mg/dL Lactate 3.7 H (0.7-2.1) mmol/L Calcium 7.9 L (8.4-10.2) mg/dL Phosphorus 3.0 (2.8-4.1) mg/dL Magnesium 1.9 (1.6-2.3) mg/dL Total Bilirubin 0.8 (0.2-1.3) mg/dL AST 27 (14-36) IU/L ALT 15 (<35) IU/L Alkaline Phosphatase 111 (38-126) U/L C-Reactive Protein (<1.0) mg/dL Total Protein 7.2 (6.3-8.2) g/dL Albumin 3.4 L (3.5-5.0) g/dL Globulin 3.8 (1.7-4.1) g/dL Albumin/Globulin Ratio 0.9 L (1.0-2.8) Procalcitonin (<0.5) ng/mL SARS-CoV-2 (PCR) (Negative) 12/31/21 12/31/21 12/31/21 Range/Units 17:45 17:45 20:00 WBC (4.5-11.0) X10^3/uL RBC (4.0-5.2) X10^6/uL Hgb (12.0-16.0) g/dL Hct (36-46) % MCV (80-100) fL MCH (26-34) PG MCHC (30-36) % RDW (11.6-14.8) % Plt Count (150-400) X10^3/uL Neut % (Auto) (50-75) % Lymph % (Auto) (25-40) % Kemper % (Auto) (3-14) % Eos % (Auto) (2-4) % Baso % (Auto) (0-2) % Neut # (Auto) (6907-3980) /uL Lymph # (Auto) (6368-6148) /uL Kemper # (Auto) (0-900) /uL Eos # (Auto) (0-450) /uL Baso # (Auto) (0-100) /uL Platelet Estimate RBC Morphology Poikilocytosis Anisocytosis Spherocytes Ovalocytes Schistocytes ESR 28 H (0-20) MM/HR Sodium (137-145) mmol/L Potassium (3.4-5.1) mmol/L Chloride (98-107) mmol/L Carbon Dioxide (22-32) mmol/L BUN (7-17) mg/dL Creatinine (0.52-1.04) mg/dL Estimated GFR (>60) mL/min BUN/Creatinine Ratio (6-22) Glucose (80-110) mg/dL Lactate 2.8 H (0.7-2.1) mmol/L Calcium (8.4-10.2) mg/dL Phosphorus (2.8-4.1) mg/dL Magnesium (1.6-2.3) mg/dL Total Bilirubin (0.2-1.3) mg/dL AST (14-36) IU/L ALT (<35) IU/L Alkaline Phosphatase (38-126) U/L C-Reactive Protein 4.2 H (<1.0) mg/dL Total Protein (6.3-8.2) g/dL Albumin (3.5-5.0) g/dL Globulin (1.7-4.1) g/dL Albumin/Globulin Ratio (1.0-2.8) Procalcitonin (<0.5) ng/mL SARS-CoV-2 (PCR) (Negative) 12/31/21 01/01/22 01/01/22 Range/Units 21:05 06:25 06:25 WBC 4.9 (4.5-11.0) X10^3/uL RBC 3.15 L (4.0-5.2) X10^6/uL Hgb 9.3 L (12.0-16.0) g/dL Hct 27.3 L (36-46) % MCV 86.7 (80-100) fL MCH 29.4 (26-34) PG MCHC 33.9 (30-36) % RDW 22.0 H (11.6-14.8) % Plt Count 101 L (150-400) X10^3/uL Neut % (Auto) 75.0 (50-75) % Lymph % (Auto) 15.5 L (25-40) % Kemper % (Auto) 8.3 (3-14) % Eos % (Auto) 0.5 L (2-4) % Baso % (Auto) 0.7 (0-2) % Neut # (Auto) 3600 (8046-8444) /uL Lymph # (Auto) 800 L (5332-1718) /uL Kemper # (Auto) 400 (0-900) /uL Eos # (Auto) 0 (0-450) /uL Baso # (Auto) 0 (0-100) /uL Platelet Estimate RBC Morphology See below Poikilocytosis Anisocytosis 2+ H Spherocytes Ovalocytes Schistocytes ESR (0-20) MM/HR Sodium 138 (137-145) mmol/L Potassium 3.6 (3.4-5.1) mmol/L Chloride 95 L (98-107) mmol/L Carbon Dioxide 27 (22-32) mmol/L BUN 15 (7-17) mg/dL Creatinine 2.48 H (0.52-1.04) mg/dL Estimated GFR 22 L (>60) mL/min BUN/Creatinine Ratio 6.0 (6-22) Glucose 140 H (80-110) mg/dL Lactate (0.7-2.1) mmol/L Calcium 8.1 L (8.4-10.2) mg/dL Phosphorus (2.8-4.1) mg/dL Magnesium (1.6-2.3) mg/dL Total Bilirubin 0.9 (0.2-1.3) mg/dL AST 19 (14-36) IU/L ALT 12 (<35) IU/L Alkaline Phosphatase 96 (38-126) U/L C-Reactive Protein (<1.0) mg/dL Total Protein 6.7 (6.3-8.2) g/dL Albumin 3.1 L (3.5-5.0) g/dL Globulin 3.6 (1.7-4.1) g/dL Albumin/Globulin Ratio 0.9 L (1.0-2.8) Procalcitonin (<0.5) ng/mL SARS-CoV-2 (PCR) Negative (Negative) 01/02/22 01/02/22 01/02/22 Range/Units 06:10 06:10 11:26 WBC 5.4 (4.5-11.0) X10^3/uL RBC 3.41 L (4.0-5.2) X10^6/uL Hgb 10.0 L (12.0-16.0) g/dL Hct 29.5 L (36-46) % MCV 86.5 (80-100) fL MCH 29.3 (26-34) PG MCHC 33.9 (30-36) % RDW 21.6 H (11.6-14.8) % Plt Count 103 L (150-400) X10^3/uL Neut % (Auto) 81.5 H (50-75) % Lymph % (Auto) 8.0 L (25-40) % Kemper % (Auto) 7.5 (3-14) % Eos % (Auto) 2.4 (2-4) % Baso % (Auto) 0.6 (0-2) % Neut # (Auto) 4400 (4399-0725) /uL Lymph # (Auto) 400 L (3498-7938) /uL Kemper # (Auto) 400 (0-900) /uL Eos # (Auto) 100 (0-450) /uL Baso # (Auto) 0 (0-100) /uL Platelet Estimate RBC Morphology See below Poikilocytosis 2+ H Anisocytosis 3+ H Spherocytes 1+ H Ovalocytes 2+ H Schistocytes 1+ H ESR (0-20) MM/HR Sodium 136 L (137-145) mmol/L Potassium 3.7 (3.4-5.1) mmol/L Chloride 92 L (98-107) mmol/L Carbon Dioxide 23 (22-32) mmol/L BUN 19 H (7-17) mg/dL Creatinine 3.25 H (0.52-1.04) mg/dL Estimated GFR 16 L (>60) mL/min BUN/Creatinine Ratio 5.8 L (6-22) Glucose 273 H D (80-110) mg/dL Lactate 3.1 H (0.7-2.1) mmol/L Calcium 7.7 L (8.4-10.2) mg/dL Phosphorus 5.4 H D (2.8-4.1) mg/dL Magnesium (1.6-2.3) mg/dL Total Bilirubin 1.0 (0.2-1.3) mg/dL AST 16 (14-36) IU/L ALT 12 (<35) IU/L Alkaline Phosphatase 81 (38-126) U/L C-Reactive Protein (<1.0) mg/dL Total Protein 6.3 (6.3-8.2) g/dL Albumin 2.9 L (3.5-5.0) g/dL Globulin 3.4 (1.7-4.1) g/dL Albumin/Globulin Ratio 0.9 L (1.0-2.8) Procalcitonin (<0.5) ng/mL SARS-CoV-2 (PCR) (Negative) 01/02/22 Range/Units 11:26 WBC (4.5-11.0) X10^3/uL RBC (4.0-5.2) X10^6/uL Hgb (12.0-16.0) g/dL Hct (36-46) % MCV (80-100) fL MCH (26-34) PG MCHC (30-36) % RDW (11.6-14.8) % Plt Count (150-400) X10^3/uL Neut % (Auto) (50-75) % Lymph % (Auto) (25-40) % Kemper % (Auto) (3-14) % Eos % (Auto) (2-4) % Baso % (Auto) (0-2) % Neut # (Auto) (5340-7898) /uL Lymph # (Auto) (1025-3921) /uL Kemper # (Auto) (0-900) /uL Eos # (Auto) (0-450) /uL Baso # (Auto) (0-100) /uL Platelet Estimate RBC Morphology Poikilocytosis Anisocytosis Spherocytes Ovalocytes Schistocytes ESR (0-20) MM/HR Sodium (137-145) mmol/L Potassium (3.4-5.1) mmol/L Chloride (98-107) mmol/L Carbon Dioxide (22-32) mmol/L BUN (7-17) mg/dL Creatinine (0.52-1.04) mg/dL Estimated GFR (>60) mL/min BUN/Creatinine Ratio (6-22) Glucose (80-110) mg/dL Lactate (0.7-2.1) mmol/L Calcium (8.4-10.2) mg/dL Phosphorus (2.8-4.1) mg/dL Magnesium (1.6-2.3) mg/dL Total Bilirubin (0.2-1.3) mg/dL AST (14-36) IU/L ALT (<35) IU/L Alkaline Phosphatase (38-126) U/L C-Reactive Protein (<1.0) mg/dL Total Protein (6.3-8.2) g/dL Albumin (3.5-5.0) g/dL Globulin (1.7-4.1) g/dL Albumin/Globulin Ratio (1.0-2.8) Procalcitonin 1.18 H (<0.5) ng/mL SARS-CoV-2 (PCR) (Negative) MDM Narrative Medical decision making narrative: 61-year-old female with past medical history alcoholic cirrhosis of the liver with ascites, end-stage renal disease, on dialysis Thursday, calciphylaxis, pulmonary hypertension, stage IV sacral decubitus ulcer, type 2 diabetes presents to the ED with uncontrolled pain at the site of the ulcers. Concern for osteomyelitis versus infected ulcers versus sepsis. Will obtain labs, lactate, phosphorus, ESR, CRP, x-rays. Will control pain with morphine. Will reassess. X-ray shows Soft tissue gas in the left lateral upper thigh may related to gas forming infection.? Will obtain CT. Will start patient on vancomycin and Zosyn, obtain blood cultures prior to starting antibiotics. Patient is now signed out to Dr. Rosey Cunningham. Mank 01/01/22: Patient signed out to myself by Dr. Lares. Patient CT does not show gas forming or discrete loculated fluid collections. 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 Repeat labs this morning show stable white count, hemoglobin 9.3 . Patient's appears stable and platelets of 101. Patient's electrolytes appropriate at 1:38 a.m. with a potassium at 3.6 creatinine 2.48, glucose of 140, CRP and ESR are elevated. Lactate elevated history at 3 7 decreased to 2.8. Patient was stable overnight vitals appropriate this morning. Patient was also seen independently evaluated by myself. Currently awaiting potential transfer to outside facility for IV antibiotics, wound care, potential surgery as patient has had wounds debrided in the past but requires dialysis which we do not have available, patient currently weight listed at multiple facilities and [facility] regional hotline has been contacted to help find placement. Patient awake and requesting pain medications. She had a dose of reglan which was helpful but seem limited by patient's end-stage renal disease. She has persistent and chronic gastroparesis and nausea and vomiting. She states she has had issues with elevated phosphorus in the past she is unsure of exact dosing of her medications but is an on amlodipine, labetalol, lanthanum, an insulin typically short-acting but occasionally uses Levemir. [facility] did contact and we are still seeking a bed. Patient did not have any other additional issues throughout the day except for 1 dose of Zofran for nausea. Patient signed out to Dr. William overnight while awaiting potential placement. [[id number]] (Stewart) Patient received in sign out from [Trang]. I have reviewed the clinical course and performed an independent history and physical exam. <Salo Pino MD - Last Filed: 01/02/22 18:19> Lab Data Labs: Lab Results 12/31/21 12/31/21 12/31/21 Range/Units 17:45 17:45 17:45 WBC 6.3 (4.5-11.0) X10^3/uL RBC 3.30 L (4.0-5.2) X10^6/uL Hgb 9.8 L (12.0-16.0) g/dL Hct 28.3 L (36-46) % MCV 85.8 (80-100) fL MCH 29.7 (26-34) PG MCHC 34.6 (30-36) % RDW 22.0 H (11.6-14.8) % Plt Count 94 L (150-400) X10^3/uL Neut % (Auto) 76.1 H (50-75) % Lymph % (Auto) 16.4 L (25-40) % Kemper % (Auto) 6.6 (3-14) % Eos % (Auto) 0.4 L (2-4) % Baso % (Auto) 0.5 (0-2) % Neut # (Auto) 4800 (7804-9998) /uL Lymph # (Auto) 1000 L (3466-0775) /uL Kemper # (Auto) 400 (0-900) /uL Eos # (Auto) 0 (0-450) /uL Baso # (Auto) 0 (0-100) /uL Platelet Estimate Decreased on smear RBC Morphology See below Poikilocytosis 1+ H Anisocytosis 2+ H Spherocytes Ovalocytes 1+ H Schistocytes ESR (0-20) MM/HR Sodium 136 L (137-145) mmol/L Potassium 3.7 (3.4-5.1) mmol/L Chloride 94 L (98-107) mmol/L Carbon Dioxide 27 (22-32) mmol/L BUN 12 (7-17) mg/dL Creatinine 2.15 H (0.52-1.04) mg/dL Estimated GFR 26 L (>60) mL/min BUN/Creatinine Ratio 5.6 L (6-22) Glucose 167 H (80-110) mg/dL Lactate 3.7 H (0.7-2.1) mmol/L Calcium 7.9 L (8.4-10.2) mg/dL Phosphorus 3.0 (2.8-4.1) mg/dL Magnesium 1.9 (1.6-2.3) mg/dL Total Bilirubin 0.8 (0.2-1.3) mg/dL AST 27 (14-36) IU/L ALT 15 (<35) IU/L Alkaline Phosphatase 111 (38-126) U/L C-Reactive Protein (<1.0) mg/dL Total Protein 7.2 (6.3-8.2) g/dL Albumin 3.4 L (3.5-5.0) g/dL Globulin 3.8 (1.7-4.1) g/dL Albumin/Globulin Ratio 0.9 L (1.0-2.8) Procalcitonin (<0.5) ng/mL SARS-CoV-2 (PCR) (Negative) 12/31/21 12/31/21 12/31/21 Range/Units 17:45 17:45 20:00 WBC (4.5-11.0) X10^3/uL RBC (4.0-5.2) X10^6/uL Hgb (12.0-16.0) g/dL Hct (36-46) % MCV (80-100) fL MCH (26-34) PG MCHC (30-36) % RDW (11.6-14.8) % Plt Count (150-400) X10^3/uL Neut % (Auto) (50-75) % Lymph % (Auto) (25-40) % Kemper % (Auto) (3-14) % Eos % (Auto) (2-4) % Baso % (Auto) (0-2) % Neut # (Auto) (0011-9025) /uL Lymph # (Auto) (5094-5330) /uL Kemper # (Auto) (0-900) /uL Eos # (Auto) (0-450) /uL Baso # (Auto) (0-100) /uL Platelet Estimate RBC Morphology Poikilocytosis Anisocytosis Spherocytes Ovalocytes Schistocytes ESR 28 H (0-20) MM/HR Sodium (137-145) mmol/L Potassium (3.4-5.1) mmol/L Chloride (98-107) mmol/L Carbon Dioxide (22-32) mmol/L BUN (7-17) mg/dL Creatinine (0.52-1.04) mg/dL Estimated GFR (>60) mL/min BUN/Creatinine Ratio (6-22) Glucose (80-110) mg/dL Lactate 2.8 H (0.7-2.1) mmol/L Calcium (8.4-10.2) mg/dL Phosphorus (2.8-4.1) mg/dL Magnesium (1.6-2.3) mg/dL Total Bilirubin (0.2-1.3) mg/dL AST (14-36) IU/L ALT (<35) IU/L Alkaline Phosphatase (38-126) U/L C-Reactive Protein 4.2 H (<1.0) mg/dL Total Protein (6.3-8.2) g/dL Albumin (3.5-5.0) g/dL Globulin (1.7-4.1) g/dL Albumin/Globulin Ratio (1.0-2.8) Procalcitonin (<0.5) ng/mL SARS-CoV-2 (PCR) (Negative) 12/31/21 01/01/22 01/01/22 Range/Units 21:05 06:25 06:25 WBC 4.9 (4.5-11.0) X10^3/uL RBC 3.15 L (4.0-5.2) X10^6/uL Hgb 9.3 L (12.0-16.0) g/dL Hct 27.3 L (36-46) % MCV 86.7 (80-100) fL MCH 29.4 (26-34) PG MCHC 33.9 (30-36) % RDW 22.0 H (11.6-14.8) % Plt Count 101 L (150-400) X10^3/uL Neut % (Auto) 75.0 (50-75) % Lymph % (Auto) 15.5 L (25-40) % Kemper % (Auto) 8.3 (3-14) % Eos % (Auto) 0.5 L (2-4) % Baso % (Auto) 0.7 (0-2) % Neut # (Auto) 3600 (0800-2470) /uL Lymph # (Auto) 800 L (3913-1610) /uL Kemper # (Auto) 400 (0-900) /uL Eos # (Auto) 0 (0-450) /uL Baso # (Auto) 0 (0-100) /uL Platelet Estimate RBC Morphology See below Poikilocytosis Anisocytosis 2+ H Spherocytes Ovalocytes Schistocytes ESR (0-20) MM/HR Sodium 138 (137-145) mmol/L Potassium 3.6 (3.4-5.1) mmol/L Chloride 95 L (98-107) mmol/L Carbon Dioxide 27 (22-32) mmol/L BUN 15 (7-17) mg/dL Creatinine 2.48 H (0.52-1.04) mg/dL Estimated GFR 22 L (>60) mL/min BUN/Creatinine Ratio 6.0 (6-22) Glucose 140 H (80-110) mg/dL Lactate (0.7-2.1) mmol/L Calcium 8.1 L (8.4-10.2) mg/dL Phosphorus (2.8-4.1) mg/dL Magnesium (1.6-2.3) mg/dL Total Bilirubin 0.9 (0.2-1.3) mg/dL AST 19 (14-36) IU/L ALT 12 (<35) IU/L Alkaline Phosphatase 96 (38-126) U/L C-Reactive Protein (<1.0) mg/dL Total Protein 6.7 (6.3-8.2) g/dL Albumin 3.1 L (3.5-5.0) g/dL Globulin 3.6 (1.7-4.1) g/dL Albumin/Globulin Ratio 0.9 L (1.0-2.8) Procalcitonin (<0.5) ng/mL SARS-CoV-2 (PCR) Negative (Negative) 01/02/22 01/02/22 01/02/22 Range/Units 06:10 06:10 11:26 WBC 5.4 (4.5-11.0) X10^3/uL RBC 3.41 L (4.0-5.2) X10^6/uL Hgb 10.0 L (12.0-16.0) g/dL Hct 29.5 L (36-46) % MCV 86.5 (80-100) fL MCH 29.3 (26-34) PG MCHC 33.9 (30-36) % RDW 21.6 H (11.6-14.8) % Plt Count 103 L (150-400) X10^3/uL Neut % (Auto) 81.5 H (50-75) % Lymph % (Auto) 8.0 L (25-40) % Kemper % (Auto) 7.5 (3-14) % Eos % (Auto) 2.4 (2-4) % Baso % (Auto) 0.6 (0-2) % Neut # (Auto) 4400 (6772-0946) /uL Lymph # (Auto) 400 L (9710-8346) /uL Kemper # (Auto) 400 (0-900) /uL Eos # (Auto) 100 (0-450) /uL Baso # (Auto) 0 (0-100) /uL Platelet Estimate RBC Morphology See below Poikilocytosis 2+ H Anisocytosis 3+ H Spherocytes 1+ H Ovalocytes 2+ H Schistocytes 1+ H ESR (0-20) MM/HR Sodium 136 L (137-145) mmol/L Potassium 3.7 (3.4-5.1) mmol/L Chloride 92 L (98-107) mmol/L Carbon Dioxide 23 (22-32) mmol/L BUN 19 H (7-17) mg/dL Creatinine 3.25 H (0.52-1.04) mg/dL Estimated GFR 16 L (>60) mL/min BUN/Creatinine Ratio 5.8 L (6-22) Glucose 273 H D (80-110) mg/dL Lactate 3.1 H (0.7-2.1) mmol/L Calcium 7.7 L (8.4-10.2) mg/dL Phosphorus 5.4 H D (2.8-4.1) mg/dL Magnesium (1.6-2.3) mg/dL Total Bilirubin 1.0 (0.2-1.3) mg/dL AST 16 (14-36) IU/L ALT 12 (<35) IU/L Alkaline Phosphatase 81 (38-126) U/L C-Reactive Protein (<1.0) mg/dL Total Protein 6.3 (6.3-8.2) g/dL Albumin 2.9 L (3.5-5.0) g/dL Globulin 3.4 (1.7-4.1) g/dL Albumin/Globulin Ratio 0.9 L (1.0-2.8) Procalcitonin (<0.5) ng/mL SARS-CoV-2 (PCR) (Negative) 01/02/22 Range/Units 11:26 WBC (4.5-11.0) X10^3/uL RBC (4.0-5.2) X10^6/uL Hgb (12.0-16.0) g/dL Hct (36-46) % MCV (80-100) fL MCH (26-34) PG MCHC (30-36) % RDW (11.6-14.8) % Plt Count (150-400) X10^3/uL Neut % (Auto) (50-75) % Lymph % (Auto) (25-40) % Kemper % (Auto) (3-14) % Eos % (Auto) (2-4) % Baso % (Auto) (0-2) % Neut # (Auto) (5454-5364) /uL Lymph # (Auto) (8835-6277) /uL Kemper # (Auto) (0-900) /uL Eos # (Auto) (0-450) /uL Baso # (Auto) (0-100) /uL Platelet Estimate RBC Morphology Poikilocytosis Anisocytosis Spherocytes Ovalocytes Schistocytes ESR (0-20) MM/HR Sodium (137-145) mmol/L Potassium (3.4-5.1) mmol/L Chloride (98-107) mmol/L Carbon Dioxide (22-32) mmol/L BUN (7-17) mg/dL Creatinine (0.52-1.04) mg/dL Estimated GFR (>60) mL/min BUN/Creatinine Ratio (6-22) Glucose (80-110) mg/dL Lactate (0.7-2.1) mmol/L Calcium (8.4-10.2) mg/dL Phosphorus (2.8-4.1) mg/dL Magnesium (1.6-2.3) mg/dL Total Bilirubin (0.2-1.3) mg/dL AST (14-36) IU/L ALT (<35) IU/L Alkaline Phosphatase (38-126) U/L C-Reactive Protein (<1.0) mg/dL Total Protein (6.3-8.2) g/dL Albumin (3.5-5.0) g/dL Globulin (1.7-4.1) g/dL Albumin/Globulin Ratio (1.0-2.8) Procalcitonin 1.18 H (<0.5) ng/mL SARS-CoV-2 (PCR) (Negative) Discharge Plan Departure Patient Disposition: Home Clinical Impression: Calciphylaxis, Infected decubitus ulcer, Hemodialysis patient Instructions: DI for Wound Infection Activity Restrictions/Additional Instructions: Please call Dr. Corea office now to make appointment. He is expecting you for re-evaluation of your wounds. Please call Dr. Pérez office, general surgeon, to make appointment within a week. Go to dialysis now after discharge from the emergency department. Antibiotics Augmentin 500 mg twice a day has been prescribed for you. On your days dialysis in need to take a 3rd dose immediately after dialysis. Again only 3 doses on days of dialysis, , Thursday. The other days are twice a day. Return if worse if any questions or concerns. No driving or operating machinery today or when taking prescribed pain medication. Prescriptions: New ondansetron 4 mg tablet,disintegrating 4 mg PO Q8H PRN (Reason: nausea and vomiting) Qty: 15 0RF amoxicillin-pot clavulanate [Augmentin] 500-125 mg tablet 1 tab PO Q12H Qty: 24 0RF Rx Instructions: On dialysis days, take additional 3rd dose immediately after dialysis hydrocodone-acetaminophen 5-325 mg tablet 1 tab PO Q8-10H PRN (Reason: pain) Qty: 15 0RF No Action (DME) Disabled Parking Permit Qty: 1 0RF Dose Instruction: As directed Rx Instructions: As directed (DME) Micro Fine Insulin [place] Qty: 200 3RF Rx Instructions: Inject insulin (Novolog and Levemir) once daily or as directed by physician amlodipine 5 mg tablet 5 mg PO DAILY Qty: 90 3RF Levemir FlexTouch U-100 Insuln 100 unit/mL (3 mL) insulin pen 10 unit SUBCUT QDAY Qty: 90 3RF lanthanum 500 mg tablet,chewable 500 mg PO PRN (Reason: hyperphosphatemia) Label Comments: take 1 tablet by mouth as needed WITH A MEAL Novolog Flexpen U-100 Insulin 100 unit/mL (3 mL) insulin pen 10 unit SUBCUT DAILY PRN (Reason: diabetes) Qty: 90 3RF Label Comments: pt doesnt know dose ondansetron 4 mg tablet,disintegrating 4 mg PO Q8H PRN (Reason: nausea and vomiting) Qty: 12 5RF labetalol 100 mg tablet 100 mg PO DAILY oxycodone 5 mg tablet 5 mg PO Q4HR PRN (Reason: Severe Pain (Scale Score 7-10)) levetiracetam [Keppra] 500 mg Tablet 500 mg PO DAILY Creon 36,000-114,000- 180,000 unit capsule,delayed release(DR/EC) 1 cap PO QAC Label Comments: take 1 capsule by mouth three times a day with meals Referrals: Maxime Pérez MD [Physician] - Amilcar Jones MD [Primary Care Provider] - Visit Report Forms: Patient Portal/API
--- NOTE | 2021-12-31 18:15 | PC.NURSE ---
Patient left department with maura Garcia for x-rays.
[2021-12-31 18:56] LABS: C-Reactive Protein Quant 4.2 mg/dL (<1.0)
[2021-12-31 19:08] LABS: Anisocytosis 2+; Ovalocytes 1+; Poikilocytosis 1+
[2021-12-31 19:09] LABS: Platelet Estimate Decreased on smear
[2021-12-31 19:11] LABS: Erythrocyte Sedimentation Rate 28 MM/HR (0-20)
[2021-12-31] MEDS: ONDANSETRON 4 MG/2 ML INJ IV (19:36)
[2021-12-31] MEDS: MORPHINE 4 MG/ML INJ IV (19:36)
--- NOTE | 2021-12-31 19:46 | DI.CT.S_ITS ---
PROCEDURE: CT ABDOMEN PELVIS W CON INDICATIONS: multiple abscesses in the thighs and gluteal regions TECHNIQUE: After the administration of IV contrast, axial sections were acquired from the lung bases to the pubic symphysis. Coronal and sagittal reformats were performed. For radiation dose reduction, the following was used: automated exposure control, adjustment of mA and/or kV according to patient size. COMPARISON: [facility], CT, CT ABDOMEN PELVIS W CON, 06/24/2021, 3:43. FINDINGS: Image quality: There is mild motion artifact. Lung bases: There are bilateral partially visualized small to moderate pleural effusions with associated compressive atelectasis in the lower lobes. Heart: Heart size is enlarged. There is a partially visualized moderate pericardial effusion. ABDOMEN: Liver: The liver is heterogeneous in appearance with a lobulated nodular hepatic contour consistent with cirrhosis. A small hypervascular oval lesion is demonstrated within segment 4A of the left hepatic lobe measuring up to 0.6 cm on series 2, image 19. Findings are similar to the prior study. A small oval hypodensity likely representing a cyst is demonstrated on series 2, image 25. Gallbladder: Within normal limits without calcified gallstones. Biliary ducts: No biliary ductal dilatation. Pancreas: Multiple calcifications are demonstrated along the course of the pancreas consistent with sequelae of chronic pancreatitis. There are multiple cystic structures demonstrated along the pancreas, with marked atrophy of the pancreatic parenchyma. Findings suggest diffuse dilatation of the main pancreatic duct. These include a cyst measuring up to 2.9 cm in the pancreatic body on series 2, image 30. Spleen: Spleen is mildly enlarged. Adrenal Glands: No adrenal nodules. Kidneys and Ureters: No hydronephrosis. There is severe atrophy of the kidneys bilaterally. Stomach and Bowel: There is nonspecific mild gastric wall thickening. Small bowel loops are normal in caliber. There is suggestion of mild adrenal wall thickening involving multiple loops in the left abdomen. No definite evidence of appendicitis. There is colonic diverticulosis without definite acute diverticulitis. Mild segmental wall thickening in the sigmoid colon may reflect a mild colitis or reactive changes. Peritoneum: There is a small to moderate amount of ascites in the abdomen and pelvis. No free air. Abdominal Wall: There is diffuse subcutaneous edema within the abdominal wall and visualized inferior chest wall consistent with anasarca. No discrete abscess collections are identified in the gluteal regions or within the visualized lower extremities, but evaluation is limited by diffuse anasarca. No abdominal wall hernias. Abdominal Nodes: No retroperitoneal or mesenteric adenopathy by size criteria. Vessels: Aorta and inferior vena cava are normal in size. There is enlargement of the portal and splenic veins. Multiple splenic varices are demonstrated. There is a recanalized paraumbilical vein. PELVIS: Pelvic Organs: Unremarkable. Bladder: The urinary bladder is partially distended. Pelvic Nodes: No enlarged lymph nodes. Miscellaneous: No inguinal hernias are seen. Bones: Visualized osseous structures demonstrate no suspicious focal lesions. IMPRESSION: 1. No discrete loculated fluid collections identified within the gluteal regions or within the visualized lower extremities to correlate with reported history of abscess collections. Diffuse anasarca with extensive subcutaneous edema limits evaluation. 2. Nodular cirrhotic liver redemonstrated with evidence of portal hypertension including ascites, multiple varices, and enlargement of the portal and splenic veins. 3. Small indistinct hypervascular focus within the left hepatic lobe is incompletely characterized on the current study. A hepatoma cannot be excluded. Recommend further evaluation with a liver protocol MRI when clinically feasible. 4. Severe atrophy of the kidneys. 5. Sequelae of chronic pancreatitis redemonstrated with severe atrophy of the pancreatic parenchyma. There is suspected marked dilatation of the main pancreatic duct as well as small cysts along the pancreas. The findings may reflect a combined type IPMN or sequelae of chronic pancreatitis. Further evaluation may also be obtained with MRI. 6. Mild wall thickening involving the stomach, a few segments of small bowel, and sigmoid colon may reflect sequelae of ascites or represent a mild infectious or inflammatory process. Dictated by: Ld Villareal M.D. on 12/31/2021 at 22:03 Approved by: Ld Villareal M.D. on 12/31/2021 at 22:17
[2021-12-31 19:50] LABS: Reflexed Lactate in 2 Hours Y
--- NOTE | 2021-12-31 19:55 | PC.NURSE ---
Pt frequently yelling out in pain and breathing rapidly as well as occasionally dry heaving. Pt unable to tolerate ultrasound IV placement due to pain at multiple wound sites. Pt requesting to stop soon after attempt was made. Pt at bedside, MS at bedside. New IV attempt to be made soon for blood cultures.
[2021-12-31] MEDS: HYDROMORPHONE 0.5 MG INJ 1 MG IV ×3 (20:10→22:56)
[2021-12-31] MEDS: PIPERACILLIN/TAZO 4.5 GM in SODIUM CHLORIDE 0.9% 100 ML IV (20:10)
--- NOTE | 2021-12-31 20:35 | PC.NURSE ---
barrier dressing applied to open, pus-draining wounds on left lateral upper thigh, coccyx, and right hip. Pt has dressing intact and in place on left hip. Pt repositioned in bed, propped up on pillow underneath her left buttock and her head lowered to reduce pressure on coccyx. Pt reports still feeling intense pain.
[2021-12-31 20:45] LABS: Lactate 2HR (Lactic Acid Rflx) 2.8 mmol/L (0.7-2.1)
[2021-12-31] MEDS: VANCOMYCIN 750 MG/150 ML PIGGYBACK 150 MG IV (21:24)
[2021-12-31 21:51] LABS: COVID19 -Nasal RAPID Negative (Negative)
[2021-12-31] MEDS: OXYCODONE/ACETAMINOPHEN 5/325 TABLET 2 TAB PO (22:55)
[2021-12-31] MEDS: SODIUM CHLORIDE 0.9% 500 ML 1000 ML IV (22:56)
[2022-01-01] VITALS (48 sets, daily range): BP systolic 90–135; BP diastolic 52–71; PULSE 45–113; RESP 18; O2SAT 92–100
--- NOTE | 2022-01-01 00:10 | PC.NURSE ---
Pt moved to inpatient hospital bed and repositioned for comfort. Pt lying flat on her back.
[2022-01-01] MEDS: HYDROMORPHONE 0.5 MG INJ IV ×2 (01:02→12:15)
[2022-01-01] MEDS: ONDANSETRON 4 MG/2 ML INJ IV ×2 (01:03→12:15)
--- NOTE | 2022-01-01 01:06 | PC.NURSE ---
Pt vomiting after attempting to eat food and drink water. Food and water removed from pt room and pt informed she can no longer have anything by mouth. Pt understanding of this, although stating she gets nauseated when she doesn't eat for a while. Pt informed she needs bowel rest. Pt also informed this RN that he pain is really bad. Pt informed to notify this RN before her pain gets to a severe level so it can be managed for effectively. Pt provided with new emesis bags and multiple wet wash cloths to clean herself up. Pt HOB remains elevated as this RN left room incase pt needs to vomit again.
[2022-01-01] MEDS: PIPERACILLIN/TAZO 3.375 GM in SODIUM CHLORIDE 0.9% 100 ML IV ×3 (03:11→19:07)
--- NOTE | 2022-01-01 05:30 | PC.NURSE ---
Pt sleeping. Respirations observed as WNL, VSS on RA.
--- NOTE | 2022-01-01 05:35 | PC.NURSE ---
Pt called staff into room with call light. Pt asking for something to eat. Pt informed that the last time she ate even a small amount, she vomited. Pt states she understood this, but she feels nauseated because she doesn't have anything in her stomach and her weakness makes her nauseated. It was suggested by this RN that pt start with ice chips instead. Pt states she wanted water. Pt then began to vomit while still asking for water. Pt informed that giving water to someone that is vomiting is not a ingram decision. Pt doesn't seem to understand this when told. Pt informed a nausea medication will be administered shortly.
[2022-01-01] MEDS: METOCLOPRAMIDE 10 MG/2 ML INJ IV (05:41)
--- NOTE | 2022-01-01 05:55 | PC.NURSE ---
Pt given nausea medication per MAR. Pt reports still feeling nauseated, but is asking for food still. This RN made pt aware that no food will be given to here for the time being until she is no longer reporting nausea or is not vomiting. Pt not wanting to be repositioned at this time.
--- NOTE | 2022-01-01 06:31 | PC.NURSE ---
This RN attempted x2 to obtain morning labs, but was unsuccesful. Lab called for AM lab draw.
[2022-01-01 06:48] LABS: Add Manual Diff / Slide Review NO; Basophils Absolute Auto 0 /uL (0-100); Basophils Percent Auto 0.7 % (0-2); Eosinophils Absolute Auto 0 /uL (0-450); Eosinophils Percent Auto 0.5 % (2-4); Hematocrit 27.3 % (36-46); Hemoglobin 9.3 g/dL (12.0-16.0); Lymphocytes Absolute Auto 800 /uL (1100-4500); Lymphocytes Percent Auto 15.5 % (25-40); Mean Corpuscular HGB Conc 33.9 % (30-36); Mean Corpuscular Hemoglobin 29.4 PG (26-34); Mean Corpuscular Volume 86.7 fL (80-100); Monocytes Absolute Auto 400 /uL (0-900); Monocytes Percent Auto 8.3 % (3-14); Neutrophils Absolute Auto 3600 /uL (1500-7000); Platelet Count 101 X10^3/uL (150-400); Red Blood Cell Count 3.15 X10^6/uL (4.0-5.2); White Blood Cell Count 4.9 X10^3/uL (4.5-11.0)
[2022-01-01 06:52] LABS: Alanine Aminotransferase 12 IU/L (<35); Albumin 3.1 g/dL (3.5-5.0); Albumin Globulin Ratio 0.9 (1.0-2.8); Alkaline Phosphatase 96 U/L (38-126); Aspartate Aminotransferase 19 IU/L (14-36); Bilirubin Total 0.9 mg/dL (0.2-1.3); Blood Urea Nitrogen 15 mg/dL (7-17); Calcium 8.1 mg/dL (8.4-10.2); Carbon Dioxide 27 mmol/L (22-32); Chloride 95 mmol/L (98-107); Estimated Glomerular Filt Rate 22 mL/min (>60); Globulin 3.6 g/dL (1.7-4.1); Glucose 140 mg/dL (80-110); HEMOLYSIS < 15 (0-50); Potassium 3.6 mmol/L (3.4-5.1); Sodium 138 mmol/L (137-145); Total Protein 6.7 g/dL (6.3-8.2)
[2022-01-01 07:21] LABS: Anisocytosis 2+
--- NOTE | 2022-01-01 10:57 | PC.NURSE ---
Patient has been resting quietly with eyes closed, all morning. Bilateral chest rise and fall noted, as well as hand movements to scratch her nose.
[2022-01-01] MEDS: levETIRAcetam 250 MG TABLET 500 MG PO (19:20)
[2022-01-02] VITALS (23 sets, daily range): BP systolic 113–133; BP diastolic 67–82; PULSE 72–116; O2SAT 93–100
[2022-01-02] MEDS: HYDROMORPHONE 0.5 MG INJ IV (02:54)
[2022-01-02] MEDS: PIPERACILLIN/TAZO 3.375 GM in SODIUM CHLORIDE 0.9% 100 ML IV (02:56)
[2022-01-02 06:28] LABS: Basophils Absolute Auto 0 /uL (0-100); Basophils Percent Auto 0.6 % (0-2); Eosinophils Absolute Auto 100 /uL (0-450); Eosinophils Percent Auto 2.4 % (2-4); Hematocrit 29.5 % (36-46); Lymphocytes Absolute Auto 400 /uL (1100-4500); Mean Corpuscular HGB Conc 33.9 % (30-36); Mean Corpuscular Hemoglobin 29.3 PG (26-34); Mean Corpuscular Volume 86.5 fL (80-100); Monocytes Absolute Auto 400 /uL (0-900); Monocytes Percent Auto 7.5 % (3-14); Neutrophils Absolute Auto 4400 /uL (1500-7000); Neutrophils Percent Auto 81.5 % (50-75); Platelet Count 103 X10^3/uL (150-400); Red Blood Cell Count 3.41 X10^6/uL (4.0-5.2); Red Cell Distribution Width 21.6 % (11.6-14.8); White Blood Cell Count 5.4 X10^3/uL (4.5-11.0)
[2022-01-02 06:29] LABS: Add Manual Diff / Slide Review SLIDE REVIEW
[2022-01-02 06:35] LABS: Alanine Aminotransferase 12 IU/L (<35); Albumin 2.9 g/dL (3.5-5.0); Albumin Globulin Ratio 0.9 (1.0-2.8); Alkaline Phosphatase 81 U/L (38-126); Aspartate Aminotransferase 16 IU/L (14-36); BUN Creatinine Ratio 5.8 (6-22); Blood Urea Nitrogen 19 mg/dL (7-17); Calcium 7.7 mg/dL (8.4-10.2); Carbon Dioxide 23 mmol/L (22-32); Chloride 92 mmol/L (98-107); Estimated Glomerular Filt Rate 16 mL/min (>60); Globulin 3.4 g/dL (1.7-4.1); Glucose 273 mg/dL (80-110); HEMOLYSIS < 15 (0-50); Phosphorous 5.4 mg/dL (2.8-4.1); Potassium 3.7 mmol/L (3.4-5.1); Sodium 136 mmol/L (137-145); Total Protein 6.3 g/dL (6.3-8.2)
[2022-01-02 07:22] LABS: Anisocytosis 3+
[2022-01-02 07:24] LABS: Ovalocytes 2+; Spherocytes 1+
[2022-01-02 07:25] LABS: Poikilocytosis 2+; Schistocytes 1+
--- NOTE | 2022-01-02 07:50 | PC.NURSE ---
I called [facility] and talked to the nurse Reyna. Patient is scheduled to be picked up here in the ER at 0945 for a dialysis treatment time of 1000. Patient will be off of dialysis at 1420 and scheduled to be picked back up from [facility] at 1445 to return to the ER here. Transfer packet with PCS form to accompany patient while out of hospital.
[2022-01-02] MEDS: levETIRAcetam 250 MG TABLET 500 MG PO (10:23)
[2022-01-02] MEDS: AMLODIPINE 5 MG TABLET PO (10:24)
--- NOTE | 2022-01-02 10:33 | PC.NURSE ---
I called to inform [facility], [facility], and [facility] that patient will be discharging and no longer requires a spot on the wait list.
[2022-01-02] MEDS: HYDROMORPHONE 0.5 MG INJ 1 MG IV (10:35)
[2022-01-02] MEDS: ONDANSETRON 4 MG/2 ML INJ IV (10:36)
[2022-01-02] MEDS: LABETALOL 100 MG TABLET PO (10:37)
[2022-01-02] MEDS: LIPASE/PROTEASE/AMYLASE 5/17/24 CAP PO (10:39)
[2022-01-02 11:53] LABS: Lactate (Lactic Acid) 3.1 mmol/L (0.7-2.1)
[2022-01-02 12:11] LABS: Procalcitonin 1.18 ng/mL (<0.5)
[2022-01-02 13:29] LABS: Reflexed Lactate in 2 Hours Y
== END 2022-01-02 12:43 | disposition home or self-care (01) ==
PROVIDERS: Emergency Medicine; Student in an Organized Health Care Education/Training Program; Emergency Provider Emergency Medicine; PCP Internal Medicine
DX: E83.59 Other disorders of calcium metabolism (principal); L89.154 Pressure ulcer of sacral region, stage 4; Z99.2 Dependence on renal dialysis; Z20.822 Contact with and (suspected) exposure to COVID-19
CPT/HCPCS: 36415; 73502; 73552; 74177; 80053; 83605; 83735; 84100; 84145; 85025; 85651; 86140; 87040; 87635; 96361; 96365; 96367; 96375; 96376; 99285; C9803; A9270; J1170; J2270; J2405; J2543; J2765; Q9967

== ENCOUNTER → 2022-01-06 09:28 | Outpatient (CLI) | payer MEDICARE, OTHER, SELFPAY ==
[2021-11-28 09:21] VITALS: RESP 24; O2SAT 96
== END ==
PROVIDERS: PCP Internal Medicine; Referring Provider Internal Medicine; Visit Provider Family Medicine
DX: E11.628 Type 2 diabetes mellitus with other skin complications (principal); S71.101A Unspecified open wound, right thigh, initial encounter; S71.102A Unspecified open wound, left thigh, initial encounter; L08.9 Local infection of the skin and subcutaneous tissue, unspecified; E11.622 Type 2 diabetes mellitus with other skin ulcer; L89.153 Pressure ulcer of sacral region, stage 3; E83.59 Other disorders of calcium metabolism
CPT/HCPCS: 11042; 87070; 87075; 87077; 87186; 87205; 99213; 99214